=== PATIENT | female | born 1955 | race Caucasian/White ===

== ENCOUNTER 2022-01-12 09:58 | Inpatient (IN) | payer MEDICARE, SELFPAY ==
--- NOTE | ~2022-01-12 | CT_ITS ---
EXAMINATION: CT CHEST WITHOUT CONTRAST CLINICAL INFORMATION: History of OMAR. Hemoptysis. COMPARISON: None TECHNIQUE: Multidetector volumetric CT imaging of the chest was done. Axial MIP volume rendering provided. Sagittal and coronal reformatted images were obtained. This CT examination was performed using dose optimization techniques as appropriate, variously including the following: *Automated exposure control *Adjustment of mA and/or kV according to patient size (this includes techniques or standardized protocols for targeted exams where dose is matched to indication/reason for exam; i.e. extremities or head) *Use of iterative reconstruction technique DLP: 254 mGy-cm FINDINGS: LUNGS: Left apical surgical chain sutures. Biapical fibrotic changes with mild associated traction bronchiectasis. 0.7 cm right upper lobe 0.6 cm right lower lobe nodular densities (images 155 and 301, series 5). Mild emphysema. MEDIASTINUM: Heart normal in size. No significant pericardial effusion. No evidence of adenopathy by size criteria. CORONARY ARTERY CALCIFICATION: Severe. PLEURA: There is no pleural effusion. No pleural mass or thickening. AXILLA: No lymphadenopathy by size criteria. UPPER ABDOMEN: Atherosclerotic abdominal aorta. OSSEOUS STRUCTURES: Unremarkable. CT/CT chest wo IV con IMPRESSION: No acute finding. Left apical surgical chain sutures. Biapical fibrotic changes with mild associated traction bronchiectasis. 0.7 cm right upper lobe 0.6 cm right lower lobe nodular densities, nonspecific. Follow-up chest CT in 6 months is indicated for further evaluation, as per Fleischner Society guidelines. Mild emphysema. Severe coronary arterial calcification.
--- NOTE | ~2022-01-12 | XR_ITS ---
EXAMINATION: XR CHEST CLINICAL INFORMATION: Shortness of breath and cough COMPARISON: None TECHNIQUE: 2 views of the chest were obtained. FINDINGS: No significant abnormality is noted involving the heart, lungs, mediastinum, bony thorax or soft tissues. XR/XR chest 2V IMPRESSION: Unremarkable examination.
[2022-01-12 10:15] VITALS: BP 114/70; BP 118/71; PULSE 114; PULSE 123; RESP 26; TEMP 36.6; O2SAT 100; O2SAT 86; BMI 24.1
--- NOTE | 2022-01-12 10:15 | ECG_ITS ---
Test Reason : SOB Blood Pressure : / mmHG Vent. Rate : 107 BPM Atrial Rate : 107 BPM P-R Int : 114 ms QRS Dur : 076 ms QT Int : 330 ms P-R-T Axes : 079 054 062 degrees QTc Int : 440 ms Sinus tachycardia with Premature atrial complexes with Aberrant conduction Low voltage QRS Possible Inferior infarct , age undetermined Abnormal ECG When compared with ECG of 18-APR-2010 10:24, Aberrant conduction is now Present Referred By: Brenda Gonzalez Electronically Signed By:PETER CARTER MD
[2022-01-12 10:55] LABS: MANUAL DIFF FLAG NO
[2022-01-12 10:59] LABS: Basophils Percent Auto 0.4 % (0-2); Eosinophils Percent Auto 0.3 % (0-4); Hematocrit 43.9 % (37.0-47.0); Hemoglobin 14.4 g/dl (12.0-16.0); Imm Gran Abs Auto 0.03 X10*3/uL (0.00-0.03); Imm Gran Pct Auto 0.4 % (0.0-0.4); Lymphocytes Absolute Auto 0.7 X10*3/uL (1.2-4.9); Lymphocytes Percent Auto 8.5 % (20-40); Mean Corpuscular HGB Conc 32.8 g/dl (31.0-35.0); Mean Corpuscular Hemoglobin 30.6 pg (27.0-33.0); Mean Corpuscular Volume 93.4 fL (80.0-98.0); Mean Platelet Volume 10.8 fL (9.4-12.3); Monocytes Absolute Auto 0.7 X10*3/uL (0.1-1.2); Monocytes Percent Auto 9.1 % (2-11); Neutrophils Absolute Auto 6.5 x10*3/uL (2.0-8.3); Neutrophils Percent Auto 81.3 % (45-73); Platelet Count 272 X10*3/uL (160-400)
[2022-01-12] MEDS: cefTRIAXone sodium 2 GM in 0.9 % Sodium Chloride 50 ML IV (11:00)
[2022-01-12] MEDS: methylPREDNISolone Sod Succ 125 MG/2 ML VIAL IVPUSH (11:00)
[2022-01-12 11:07] LABS: Prothrombin Time 10.9 SEC (10.0-13.1)
[2022-01-12 11:09] LABS: Lactic Acid 1.6 mmol/L (0.5-2.0)
[2022-01-12 11:16] LABS: Alanine Aminotransferase 7 U/L (0-31); Albumin Level 4.4 g/dL (3.5-5.0); Alkaline Phosphatase 50 U/L (39-117); Anion Gap 15 (12-20); Aspartate Amino Transferase 19 U/L (5-31); Bilirubin Total 0.4 mg/dL (0.0-1.0); Blood Urea Nitrogen 13 mg/dL (9-16); Calcium 9.5 mg/dL (8.4-10.2); Carbon Dioxide 26 mmol/L (22-29); Chloride 100 mmol/L (96-108); Creatinine Clr Calc Pharmacy 51.3; Estimated Glomerular Filt Rate > 60; Glucose Random 131 mg/dL (60-115); Potassium 4.4 mmol/L (3.3-5.1); Sodium 137 mmol/L (135-145)
[2022-01-12 11:20] LABS: B Type Natriuretic Peptide 12 pg/mL (<100); Troponin-I High Sensitivity 6.6 ng/L (<3.5-17.0)
[2022-01-12] MEDS: Magnesium Sulfate/H2O 2 GM/50 ML PIGGYBACK IV (11:47)
[2022-01-12] MEDS: guaiFEN/Codeine SF 200/20/10ML 10 ML LIQUID PO (11:47)
[2022-01-12] MEDS: Ketorolac Tromethamine 30 MG/ML VIAL IVPUSH (11:47)
[2022-01-12 11:50] LABS: Influenza A PCR POSITIVE (Negative); Influenza B PCR NEGATIVE (Negative); Resp Syncy Virus RNA Qual PCR NEGATIVE (Negative); SARS COV2 PCR INHOUSE NEGATIVE (Negative)
[2022-01-12 11:57] VITALS: BP 110/61; PULSE 93; RESP 20; TEMP 36.9; O2SAT 98
--- NOTE | 2022-01-12 12:13 | ED_ITS ---
HPI - SOB/Dyspnea General Chief Complaint: Dyspnea Stated Complaint: Short of Breath Time Seen by Provider: 01/12/22 10:07 Source: patient and EMS Mode of arrival: EMS Limitations: no limitations History of Present Illness HPI Narrative: 66yoF c PMHx of COPD is presenting to the ED via EMS with complaints of 4 days of generalized fatigue/malaise, shortness of breath with a productive cough with yellow/green color sputum with streaks of blood, dyspnea on exertion along with chest tightness/pain worse today. She reports that she is a daily smoker although has been unable to smoke over the past few days. She reports she believes she was intubated approximately 4 years for her COPD. Although denies any recent hospitalizations. She called EMS today and when they arrived they noted she was 86% on room air therefore they placed her on a non-rebreather and she was given a DuoNeb in route and was 100% during DuoNeb. She denies any measured fevers, dizziness, headaches, neck pain/stiffness, trouble swallowing, orthopnea, palpitations, paresthesias, nausea/vomiting/diarrhea constipation, black or bloody stools, abdominal pain, flank pain, dysuria, hematuria, abnormal vaginal discharge, lower extremity more calf tenderness, recent travel or sick contacts that she is aware of or any other symptoms complaints or concerns at this time. MD elicited complaint: shortness of breath, cough, pain with inspiration and chest pain Pertinent past history: COPD Onset (ago): day(s) (4) Timing: constant Severity: severe Exacerbating factors: exertion, movement, coughing, inspiration, talking, smoke and deep breaths Relieving factors: nothing Known history of: COPD Associated symptoms: chest pain, pain with inspiration, cough, wheezing, sputum production and chest congestion Treatment prior to arrival: other (See above) Related Data Home oxygen amount: none Allergies Allergy/AdvReac Type Severity Reaction Status Date / Time tree nut [TREE NUT] Allergy Intermediate MOUTH Unverified 10/26/19 14:51 TINGLING atorvastatin [Lipitor] Allergy Unknown Verified 09/18/19 00:00 ENVIRONMENTAL Allergy Intermediate NASAL Uncoded 10/26/19 14:51 CONGESTION Review of Systems Review of Systems: Constitutional : + chills/fatigue/malaise, No Weight loss, No Fever, No Night Sweats ENT/Mouth : No Hearing loss, No Ear Pain, No Nasal Congestion, No Sinus Pain, No Hoarseness, No sore throat, No Rhinorrhea, No Swallowing Difficulty Eyes: No Eye Pain, No Swelling, No Redness, No Foreign Body, No Discharge, No Vision Changes Cardiovascular : No Chest Pain, + SOB, + Dyspnea on Exertion, No Orthopnea, No Edema, No Palpitations Respiratory : + Cough, + Sputum, + Wheezing, No Smoke Exposure, + Dyspnea Gastrointestinal : No Nausea, No Vomiting, No Diarrhea, No Constipation, No abdominal Pain, No Hematochezia, No Melena Genitourinary : no irregular bleeding, No Dysuria, No Urinary Frequency, No Hematuria, No Urinary Incontinence, No Urgency, No Flank Pain, No Urinary Flow Changes, No Hesitancy Musculoskeletal : No joint pain, + Myalgias, No Joint Swelling Skin : No Skin Lesions, No rash Neuro : No Weakness, No Numbness, No Paresthesias, No Loss of Consciousness, No Dizziness, No Headache Psych : No Anxiety/Panic, No Depression, No SI/HI/AH/VH, No Social Issues, Heme/Lymph: No Bruising, No Bleeding,No Lymphadenopathy Endocrine : No Polyuria, No Polydipsia, No Temperature Intolerance Yes all other systems are reviewed and are negative [facility] Past Medical History Attestation statement: The following information was validated with the patient. Source: old records reviewed, obtained from family and nursing notes reviewed Social History Social History Advance Directives: No Advance Directives Information Provided: No Physical Exam Vital Signs: Vital Signs: Last Vital Signs Temp 98.4 F 01/12/22 11:57 Pulse 93 01/12/22 11:57 Resp 20 01/12/22 11:57 BP 110/61 01/12/22 11:57 Pulse Ox 98 01/12/22 11:57 O2 Del Method 01/12/22 11:57 O2 Flow Rate 4 01/12/22 11:57 BMI result Body Mass Index 24.1 vital signs have been reviewed as normal and appeared to be correct. Blood pressure normal. Heart rate 123. Respiration rate 26 Temperature normal. Oxygen saturation normal. Appearance: Alert. Oriented X3. Acute respiratory distress. Head: Normal external exam. Normocephalic. Atraumatic. Eyes: PERRLA. EOMI. Conjunctiva and sclera normal. Eyelids normal. ENT: EAC normal. TM's Normal. No septal hematoma noted. No hemotympanum noted. Pharynx normal. Uvula midline. Moist mucous membranes. No lesions/ulcerations or masses noted on the tongue. Normal voice. No trismus noted. No drooling noted. No muffled voice noted. Neck: Normal inspection. Neck supple. FROM. No adenopathy. Thyroid Normal. No tracheal deviation noted. No crepitus is noted. No meningeal signs. No neck mass noted. No signs of trauma noted. CVS: Normal heart rate and rhythm. Heart sound normal. Pulses normal throughout. No murmurs/rales/gallops. Respiratory: In acute respiratory distress with decreased breath sounds and inspiratory and expiratory wheezing throughout. No rales/rhonchi noted. Chest is nontender. No crepitus is noted. Patient is noted to have accessory muscle usage and tracheal tugging and abdominal retractions. No signs of trauma noted. Abdomen: Soft and nontender. Nondistended. No guarding. No rigidity. Bowel sounds normal in all 4 quadrants. No distention noted. No organomegaly noted. No visible injury noted. No rebound tenderness. Negative Rovsing sign. Negative obturator's sign. Negative psoas sign. Negative Nicholas sign. Back: No CVA tenderness. Full range of motion noted. Nontender. No signs of trauma. Patient neuro intact bilaterally and distally on all 4 extremities. Patient's reflexes intact bilaterally and distally on all 4 extremities. No rashes/lesion/induration/fluctuance or signs of infection noted. Skin: Skin warm and dry. Normal skin color. Normal skin turgor. No rashes/lesions/lacerations noted. Extremities: No lower extremity edema. No calf tenderness is noted. Extremities exhibit normal range of motion and nontender. Neuro: Oriented X 3. No motor deficit. No sensory deficit. Reflexes normal. Normal steady gait. No focal neuro deficits noted. CN's II-XII intact bilaterally? Vascular: + radial pulses/+ 2 distal pedal pulses/+2 dorsalis pedis b/l. Normal cap refill. No cyanosis noted to upper extremity nails and lower extremity toes nails. Course Course Course Narrative: 10:15am - 66yoF c PMHx of COPD is presenting to the ED via EMS with complaints of 4 days of generalized fatigue/malaise, shortness of breath with a productive cough wit h yellow/green color sputum with streaks of blood, dyspnea on exertion along with chest tightness/pain worse today. She reports that she is a daily smoker although has been unable to smoke over the past few days. She reports she believes she was intubated approximately 4 years for her COPD. Although denies any recent hospitalizations. She called EMS today and when they arrived they noted she was 86% on room air therefore they placed her on a non-rebreather and she was given a DuoNeb in route and was 100% during DuoNeb. Plan: Will obtain labs, EKG, chest x-ray, blood cultures, lactic acid, COVID/RSV/flu swab. Provide 30 mg of IV Toradol, 125 mg of IV Solu-Medrol, 2 g of magnesium, 10 mL of Robitussin with codeine and 2 g of Rocephin and re- evaluate. Reevaluation(s) Reevaluation #1: Labs obtained reviewed - patient's random glucose is 131. - troponin 6.6. - patient positive for influenza A Otherwise all other labs are within normal limits and patient negative for influenza B/RSV and COVID. Plan: Will repeat the patient's troponin. Patient is requiring nasal cannula oxygen despite having the breathing treatment, Solu-Medrol and magnesium therefore will plan to admit at this time. Time: 12:20 Medications Administered Discontinued Medications Generic Name Dose Route Start Last Admin Trade Name Freq PRN Reason Stop Dose Admin Guaifenesin/Codeine Phosphate 10 ml 01/12/22 11:41 01/12/22 11:47 Guaifen/Codeine Sf 200/20/10ml 10 Ml Liquid PO 01/12/22 11:42 10 ml ONCE ONE Administration Magnesium Sulfate 2 gm in 50 mls @ 25 mls/hr 01/12/22 10:15 01/12/22 11:47 Magnesium Sulfate/H2o IV 01/12/22 12:14 25 mls/hr ONCE ONE Administration Ceftriaxone Sodium 2 gm/ 50 mls @ 100 mls/hr 01/12/22 10:15 01/12/22 11:47 Sodium Chloride IV 01/12/22 10:44 Infused ONCE ONE Infusion Ketorolac Tromethamine 30 mg 01/12/22 11:40 01/12/22 11:47 Ketorolac Tromethamine 30 Mg/Ml Vial IVPUSH 01/12/22 11:41 30 mg ONCE ONE Administration Methylprednisolone Sodium Succinate 125 mg 01/12/22 10:15 01/12/22 11:00 Methylprednisolone Sod Succ 125 Mg/2 Ml Vial IVPUSH 01/12/22 10:16 125 mg ONCE ONE Administration Medical Decision Making Medical Decision Making Independent interpretation of EKG, rhythm strip, radiology study: Independent interp EKG,rhythm strip, radiology study I performed an independent interpretation of the: EKG My interpretation is EKG sinus tachycardia with occasional PVCs nonspecific ST abnormalities no acute ischemic change are noted. Similar compared to prior EKG 04/18/2010 Discussion of test interpretation with radiology: Discussion of test interpretation with radiology Discussed with radiology regarding test interpretation. Chest x-ray obtained and reviewed and negative for any acute processes. CXR FINDINGS: No significant abnormality is noted involving the heart, lungs, mediastinum, bony thorax or soft tissues. XR/XR chest 2V IMPRESSION: Unremarkable examination. Critical Care Time Critical Care Time Critical Care Time: Yes Total Critical Care Time: 60 Attestation: I personally attest to this time spent taking care of the patient Discharge Plan Discharge Clinical Impression: Acute exacerbation of chronic obstructive airways disease, Hypoxia, Influenza A Patient Disposition: Admitted As Inpatient
--- NOTE | 2022-01-12 12:24 | PC.NURSE ---
Pt alert and oriented, reports improvement with breathing. Lena hubbard provided, repeat lab work ordered for 1300. Daughter at bedside.
--- NOTE | 2022-01-12 13:34 | P.HPHOSP_ITS ---
History of Present Illness Date of Service: 01/12/22 Chief Complaint: shortness of breath, cough, muscle aches and pains This is a 66 yo F with a PMH of Lung Ca -- s/p resection (did not need chemo/radiation), non-TB mycobactrium lung infection (was to start treatment since August of this year, but has yet to being antibiotics), COPD and active tobacco use, HLD who presents to the ED with a 4 day history of generalized malaise, muscle aches, fatigue, poor oral intake, productive cough (intermittently blood tinged) and progresssive shortness of breath with associated fevers and chills. No sick contacts reported. She states that her shortness of breath continued to worsen and hence, she presented to the ED. Per ED notes -- when paramedics arrived, the patient's pulse ox was 86% on RA. She was placed on 100% NRM and given a DuoNeb in route. In the Ed, the patients work up showed a cxr without any infiltrates. She is flu A positve. She was treated with tamiflu, solu-medrol, IV toradol, 2gm of IV mag and 2g of rocephin. She had some improvement in symptoms but when attempted to wean her oxygen, she desaturated below 88% and hence, placed back on 4L NC. She will now be admitted for further treatment. Review of Systems Review of Systems: negative except HPI [facility] Medical History (Updated 01/12/22 @ 13:39 by Dayne Kowalski MD) COPD (chronic obstructive pulmonary disease) Hyperlipidemia associated with type 2 diabetes mellitus Lung cancer Non-tuberculous mycobacterial pneumonia Pertinent family history: DM in multiple family members Surgical History (Updated 01/12/22 @ 13:40 by Dayne Kowalski MD) History of pneumonectomy Social History (Updated 01/12/22 @ 13:40 by Dayne Kowalski MD) Alcohol intake: current Alcohol intake frequency: a few times a week Patient Tobacco Use Status: Current everyday Tobacco user Use of substances other than those prescribed or required for medical reasons: No Advance Directives: No Advance Directives Information Provided: No Meds Allergies Allergy/AdvReac Type Severity Reaction Status Date / Time tree nut [TREE NUT] Allergy Intermediate MOUTH Unverified 10/26/19 14:51 TINGLING atorvastatin [Lipitor] Allergy Unknown Verified 09/18/19 00:00 ENVIRONMENTAL Allergy Intermediate NASAL Uncoded 10/26/19 14:51 CONGESTION Active Medications: Current Medications Acetaminophen (Acetaminophen 325 Mg Tablet) 650 mg PO Q6H PRN PRN Reason: Pain, Mild (Pain Scale 1-3) Enoxaparin Sodium (Enoxaparin Sodium 40 Mg/0.4 Ml Syringe) 40 mg SUBCUT Q24H [facility] Methylprednisolone Sodium Succinate (Methylprednisolone Sod Succ 40 Mg/Ml Vial) 40 mg IVPUSH Q12H JEFFREY Ondansetron HCl (Ondansetron Hcl 4 Mg/2 Ml Vial) 4 mg IVPUSH Q8H PRN PRN Reason: Nausea and Vomiting Oseltamivir Phosphate (Oseltamivir Phosphate 30 Mg Capsule) 30 mg PO BID JEFFREY Stop: 01/17/22 09:01 Sodium Chloride (0.9 % Sodium Chloride Flush 3 Ml Syringe) 3 ml IVFLUSH QSHIFT [facility] Home Medications Medication Instructions Recorded Confirmed Last Taken Type albuterol sulfate 90 mcg/actuation 2 puff inhalation QID PRN Wheezing 01/12/22 01/12/22 Unknown History aerosol inhaler cyanocobalamin (vitamin B-12) 1,000 mcg PO DAILY 01/12/22 01/12/22 Unknown History 1,000 mcg tablet fluticasone furoate 200 1 puff inhalation DAILY 01/12/22 01/12/22 Unknown History mcg-vilanterol 25 mcg/dose inhalation powder (Breo Ellipta) rosuvastatin 5 mg tablet 1 tab PO MOTH 01/12/22 01/12/22 Unknown History tiotropium bromide 18 mcg capsule 1 cap inhalation DAILY 01/12/22 01/12/22 Unknown History with inhalation device (Spiriva with HandiHaler) Physical Exam Vital Signs and Narrative: Vital Signs: Last Vital Signs Temp 98.4 F 01/12/22 11:57 Pulse 93 01/12/22 11:57 Resp 20 01/12/22 11:57 BP 110/61 01/12/22 11:57 Pulse Ox 98 01/12/22 11:57 O2 Del Method 01/12/22 11:57 O2 Flow Rate 4 01/12/22 11:57 BMI result Body Mass Index 24.1 Const: Other: Constitutional - Awake and Alert, No apparent distress Eyes - PERRLA, EOMI Cardiovascular - S1S2, RRR, No edema Respiratory - comfortable on 4L NC; diminished air entry with poor breath sounda globally Gastrointestinal - NT / ND; +BS; No rebound or guarding - No CVA tenderness Extremities - no calf tenderness bilaterally, no swelling Musculoskeletal - Normal inspection, normal ROM Skin - Warm/Dry Neurological - Alert & oriented x3, No focal deficit Psychological - Appropriate affect Results Labs CBC and Chem 7: 01/12/22 10:45 01/12/22 10:45 Labs: Laboratory Results - last 24 hr 01/12/22 01/12/22 01/12/22 10:45 10:45 10:45 MCV 93.4 MCH 30.6 MCHC 32.8 RDW 15.0 Plt Count 272 MPV 10.8 Immature Gran % (Auto) 0.4 Neut % (Auto) 81.3 H Lymph % (Auto) 8.5 L [place] % (Auto) 9.1 Eos % (Auto) 0.3 Baso % (Auto) 0.4 Lymph # (Auto) 0.7 L [place] # (Auto) 0.7 Eos # (Auto) 0.0 Baso # (Auto) 0.0 Abs Immat Gran (auto) 0.03 Absolute Neuts (auto) 6.5 Absolute Nucleated RBC 0.000 Nucleated RBC % (auto) 0.0 PT 10.9 INR 1.0 Anion Gap 15 Estim Creat Clear Calc 51.3 Estimated GFR > 60 Random Glucose 131 H Lactic Acid Calcium 9.5 Magnesium 2.0 Total Bilirubin 0.4 AST 19 ALT 7 Alkaline Phosphatase 50 Troponin I High Sens B-Natriuretic Peptide Total Protein 7.0 Albumin 4.4 Influenza Type A (PCR) Influenza Type B (PCR) RSV RNA Qual (PCR) SARS-CoV-2 RNA (RT-PCR) 01/12/22 01/12/22 01/12/22 10:45 10:45 10:45 MCV MCH MCHC RDW Plt Count MPV Immature Gran % (Auto) Neut % (Auto) Lymph % (Auto) [place] % (Auto) Eos % (Auto) Baso % (Auto) Lymph # (Auto) [place] # (Auto) Eos # (Auto) Baso # (Auto) Abs Immat Gran (auto) Absolute Neuts (auto) Absolute Nucleated RBC Nucleated RBC % (auto) PT INR Anion Gap Estim Creat Clear Calc Estimated GFR Random Glucose Lactic Acid 1.6 Calcium Magnesium Total Bilirubin AST ALT Alkaline Phosphatase Troponin I High Sens 6.6 B-Natriuretic Peptide 12 Total Protein Albumin Influenza Type A (PCR) Influenza Type B (PCR) RSV RNA Qual (PCR) SARS-CoV-2 RNA (RT-PCR) 01/12/22 10:45 MCV MCH MCHC RDW Plt Count MPV Immature Gran % (Auto) Neut % (Auto) Lymph % (Auto) [place] % (Auto) Eos % (Auto) Baso % (Auto) Lymph # (Auto) [place] # (Auto) Eos # (Auto) Baso # (Auto) Abs Immat Gran (auto) Absolute Neuts (auto) Absolute Nucleated RBC Nucleated RBC % (auto) PT INR Anion Gap Estim Creat Clear Calc Estimated GFR Random Glucose Lactic Acid Calcium Magnesium Total Bilirubin AST ALT Alkaline Phosphatase Troponin I High Sens B-Natriuretic Peptide Total Protein Albumin Influenza Type A (PCR) POSITIVE A Influenza Type B (PCR) NEGATIVE RSV RNA Qual (PCR) NEGATIVE SARS-CoV-2 RNA (RT-PCR) NEGATIVE Imaging Radiologist's Impressions: Impressions Chest X-Ray 01/12/22 10:25 IMPRESSION: Unremarkable examination. Assessment and Plan (1) Acute exacerbation of chronic obstructive airways disease: Status: Acute (2) Hypoxia: Status: Acute Plan 66 yo F with a PMH of Lung Ca s/p resection, non-TB mycobactrium lung infection (she has yet to start treatment for this -- follows with ID/Pulm on [place]), COPD, HLD, active smoking who presents to the ED with respiratory symptoms. She is diagnosed with influenza A infection leading to COPD exacerbation and respiratory failure with hypoxia. She remains hypoxic despite treatment in the ED and hence will be admitted for further treatment. 1. Acute Respiratory Failure with hypoxia due to COPD exacerbation due to Influenza A infection Continue supplemental o2 -- goal 92 Continue solu-medrol and scheduled + PRN bronchodilators due to history of lung Ca + suspected OMAR infection + reported hemoptysis, will check CT chest without contrast Given tamiflu 75mg -- will start 30mg BID starting tomorrow AM (renally dosed -- CrCl less than 60). 2. HLD on rasouvastatin at home -- cannot tolerate lipitor hold statin while hospitalized 3. 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 Tobacco use NRT if patient requested cessation has been encouraged Full Code DVT pptx, Lovenox Due to the patients respiratory failure requiring supplemental oxygen and COPD exacerbation -- she will require an inpatient hospitaization which is likely to span at least 2 midnights for further treatment and monitoring of response. Quality Stroke Does the patient have a stroke diagnosis?: No VTE Prior VTE?: No VTE Risk Level:: Medical - moderate - high VTE Device Contraindication: N/A - Device Ordered VTE Drug Contraindication: N/A - Med Ordered
[2022-01-12 13:40] LABS: Troponin-I High Sensitivity 7.2 ng/L (<3.5-17.0)
--- NOTE | 2022-01-12 13:51 | PHA.MEDREC ---
Pharmacy Consult ? Medication Reconciliation Pharmacy has completed the medication reconciliation. Patient mentioned she also takes activated charcoal and milk thistle but she says its only as needed and very rarely.
[2022-01-12] MEDS: Enoxaparin Sodium 40 MG/0.4 ML SYRINGE SUBCUT (13:55)
[2022-01-12] MEDS: Albuterol/Iprat 2.5/0.5MG 3 ML AMPUL.NEB INHALE (14:30)
[2022-01-12 14:33] VITALS: PULSE 84; O2SAT 97
--- NOTE | 2022-01-12 15:32 | PC.NURSE ---
[place] [facility]
[2022-01-12 16:00] VITALS: BP 121/65; PULSE 85; RESP 18; TEMP 36.8; O2SAT 96
[2022-01-12] MEDS: 0.9 % Sodium Chloride Flush 3 ML SYRINGE IVFLUSH ×2 (17:29→19:47)
[2022-01-12] MEDS: methylPREDNISolone Sod Succ 40 MG/ML VIAL IVPUSH (19:18)
[2022-01-12] MEDS: Oseltamivir Phosphate 75 MG CAPSULE PO (19:18)
[2022-01-12 21:13] LABS: Appearance Urine Clear; Color Urine Yellow; Glucose Urine UA Negative (Negative); Leukocyte Esterase Urine Negative (Negative); Nitrite Urine Negative (Negative); Urine Blood Negative (Negative); Urine Ketones Negative (Negative); Urine Protein Negative (Neg-Trace)
[2022-01-13] VITALS (8 sets, daily range): BP systolic 116–142; BP diastolic 57–75; PULSE 79–110; RESP 14–22; TEMP 36.5–37.1; O2SAT 96–99
[2022-01-13] MEDS: Benzonatate 100 MG CAPSULE 200 MG PO (00:12)
[2022-01-13] MEDS: methylPREDNISolone Sod Succ 40 MG/ML VIAL IVPUSH ×2 (06:20→19:01)
[2022-01-13 06:54] LABS: Hematocrit 40.5 % (37.0-47.0); Hemoglobin 13.7 g/dl (12.0-16.0); Mean Corpuscular HGB Conc 33.8 g/dl (31.0-35.0); Mean Corpuscular Hemoglobin 31.1 pg (27.0-33.0); Mean Platelet Volume 11.3 fL (9.4-12.3); Platelet Count 305 X10*3/uL (160-400); Red Cell Distribution Width 14.7 % (11.0-16.0); White Blood Count 11.4 X10*3/uL (4.8-10.8)
[2022-01-13 07:18] LABS: Anion Gap 15 (12-20); Blood Urea Nitrogen 17 mg/dL (9-16); Calcium 9.4 mg/dL (8.4-10.2); Carbon Dioxide 25 mmol/L (22-29); Chloride 101 mmol/L (96-108); Creatinine Clr Calc Pharmacy 59.9; Estimated Glomerular Filt Rate > 60; Glucose Random 145 mg/dL (60-115); Potassium 4.9 mmol/L (3.3-5.1); Sodium 136 mmol/L (135-145)
[2022-01-13] MEDS: Cyanocobalamin (Vitamin B-12) 1,000 MCG TABLET 1000 MCG PO (08:29)
[2022-01-13] MEDS: Oseltamivir Phosphate 30 MG CAPSULE PO ×2 (08:29→22:41)
[2022-01-13] MEDS: 0.9 % Sodium Chloride Flush 3 ML SYRINGE IVFLUSH ×3 (08:30→23:27)
--- NOTE | 2022-01-13 08:30 | P.PNIM_ITS ---
Subjective Subjective Date of Service: 01/13/22 Interval History: Pt seen for f/u for acute respiratory failure with hypoxia due to influenza A infection. Interval history: Pt seen in room, resting comfortably in bed. States she is feeling much better than when she first arrived, but still has some SOB with walking to the bathroom. Denies SOB at rest. Pt waiting on inhalers, which were not in the formulary and should arrive today. Pt cannot tolerate nebulized inhalers -- they make her throat burn -- and she did not bring her home meds with her. Has been having a non-productive cough, which is better than yesterday. Pt also complains of frontal sinus pressure, which she has a long history of. Review of Systems SOB with exertion No SOB at rest Intermittent non-productive cough No chest pain/pressure Denies abdominal pain Review of Systems: Yes all other systems are reviewed and are negative Physical Exam Vital Signs: Vital Signs: Last Vital Signs Temp 97.8 F 01/13/22 07:58 Pulse 86 01/13/22 07:58 Resp 14 01/13/22 07:58 BP 117/62 01/13/22 07:58 Pulse Ox 96 01/13/22 07:58 O2 Del Method 01/13/22 07:58 O2 Flow Rate 3 01/13/22 07:58 BMI result Body Mass Index 24.1 General: AOx3, no acute distress Resp: Diffuse right-lung expiratory wheezing CVS: S1, S2, RRR GI: +BS, NT, no distention Skin: No rash Neuro: Motor grossly intact Psych: Appropriate affect Objective Data Active Medications Acetaminophen (Acetaminophen 325 Mg Tablet) 650 mg PO Q6H PRN PRN Reason: Pain, Mild (Pain Scale 1-3) Albuterol/Ipratropium (Albuterol/Iprat 2.5/0.5mg 3 Ml Ampul.Neb) 3 ml INHALE RQ4H WHILE AWAKE PRN PRN Reason: wheezing/shortness of breath Benzonatate (Benzonatate 100 Mg Capsule) 200 mg PO TID PRN PRN Reason: cough Last Admin: 01/13/22 00:12 Dose: 200 mg Documented By: PRISCILLA Cyanocobalamin (Cyanocobalamin (Vitamin B-12) 1,000 Mcg Tablet) 1,000 mcg PO DAILY JEFFREY Enoxaparin Sodium (Enoxaparin Sodium 40 Mg/0.4 Ml Syringe) 40 mg SUBCUT Q24H [facility] Last Admin: 01/12/22 13:55 Dose: 40 mg Documented By: DICK Fluticasone/Vilanterol (Fluticasone/Vilanterol 200/25 Blst.W.Dev) 1 puff INHALE RDAILY [facility] Methylprednisolone Sodium Succinate (Methylprednisolone Sod Succ 40 Mg/Ml Vial) 40 mg IVPUSH Q12H [facility] Last Admin: 01/13/22 06:20 Dose: 40 mg Documented By: PRISCILLA Ondansetron HCl (Ondansetron Hcl 4 Mg/2 Ml Vial) 4 mg IVPUSH Q8H PRN PRN Reason: Nausea and Vomiting Oseltamivir Phosphate (Oseltamivir Phosphate 30 Mg Capsule) 30 mg PO BID [facility] Stop: 01/17/22 09:01 Pharmacy Consult (Consult Rx Perform Med Rec) 1 each MISCELLANE ONCE PRN PRN Reason: Consult order Sodium Chloride (0.9 % Sodium Chloride Flush 3 Ml Syringe) 3 ml IVFLUSH QSHIFT [facility] Last Admin: 01/12/22 19:47 Dose: 3 ml Documented By: PRISCILLA Tiotropium [place] (Tiotropium [place] 18 Mcg Cap.W.Dev) 1 puff INHALE RDAILY [facility] Last Admin: 01/13/22 07:29 Dose: 1 puff Documented By: LC Labs CBC & Chem 7: 01/13/22 06:01 01/13/22 06:01 Labs: Laboratory Results - last 24 hr 01/12/22 01/12/22 01/12/22 10:45 10:45 10:45 MCV 93.4 MCH 30.6 MCHC 32.8 RDW 15.0 Plt Count 272 MPV 10.8 Immature Gran % (Auto) 0.4 Neut % (Auto) 81.3 H Lymph % (Auto) 8.5 L Hood % (Auto) 9.1 Eos % (Auto) 0.3 Baso % (Auto) 0.4 Lymph # (Auto) 0.7 L [place] # (Auto) 0.7 Eos # (Auto) 0.0 Baso # (Auto) 0.0 Abs Immat Gran (auto) 0.03 Absolute Neuts (auto) 6.5 Absolute Nucleated RBC 0.000 Nucleated RBC % (auto) 0.0 PT 10.9 INR 1.0 Anion Gap 15 Estim Creat Clear Calc 51.3 Estimated GFR > 60 Random Glucose 131 H Lactic Acid Calcium 9.5 Magnesium 2.0 Total Bilirubin 0.4 AST 19 ALT 7 Alkaline Phosphatase 50 Troponin I High Sens B-Natriuretic Peptide Total Protein 7.0 Albumin 4.4 Urine Color Urine Appearance Urine pH Ur Specific [place] Urine Protein Urine Glucose (UA) Urine Ketones Urine Blood Urine Nitrite Ur Leukocyte Esterase Influenza Type A (PCR) Influenza Type B (PCR) RSV RNA Qual (PCR) SARS-CoV-2 RNA (RT-PCR) 01/12/22 01/12/22 01/12/22 10:45 10:45 10:45 MCV MCH MCHC RDW Plt Count MPV Immature Gran % (Auto) Neut % (Auto) Lymph % (Auto) Hood % (Auto) Eos % (Auto) Baso % (Auto) Lymph # (Auto) Hood # (Auto) Eos # (Auto) Baso # (Auto) Abs Immat Gran (auto) Absolute Neuts (auto) Absolute Nucleated RBC Nucleated RBC % (auto) PT INR Anion Gap Estim Creat Clear Calc Estimated GFR Random Glucose Lactic Acid 1.6 Calcium Magnesium Total Bilirubin AST ALT Alkaline Phosphatase Troponin I High Sens 6.6 B-Natriuretic Peptide 12 Total Protein Albumin Urine Color Urine Appearance Urine pH Ur Specific [place] Urine Protein Urine Glucose (UA) Urine Ketones Urine Blood Urine Nitrite Ur Leukocyte Esterase Influenza Type A (PCR) Influenza Type B (PCR) RSV RNA Qual (PCR) SARS-CoV-2 RNA (RT-PCR) 01/12/22 01/12/22 01/12/22 10:45 13:02 21:02 MCV MCH MCHC RDW Plt Count MPV Immature Gran % (Auto) Neut % (Auto) Lymph % (Auto) Hood % (Auto) Eos % (Auto) Baso % (Auto) Lymph # (Auto) Hood # (Auto) Eos # (Auto) Baso # (Auto) Abs Immat Gran (auto) Absolute Neuts (auto) Absolute Nucleated RBC Nucleated RBC % (auto) PT INR Anion Gap Estim Creat Clear Calc Estimated GFR Random Glucose Lactic Acid Calcium Magnesium Total Bilirubin AST ALT Alkaline Phosphatase Troponin I High Sens 7.2 B-Natriuretic Peptide Total Protein Albumin Urine Color Yellow Urine Appearance Clear Urine pH 6.0 Ur Specific [place] 1.020 Urine Protein Negative Urine Glucose (UA) Negative Urine Ketones Negative Urine Blood Negative Urine Nitrite Negative Ur Leukocyte Esterase Negative Influenza Type A (PCR) POSITIVE A Influenza Type B (PCR) NEGATIVE RSV RNA Qual (PCR) NEGATIVE SARS-CoV-2 RNA (RT-PCR) NEGATIVE 01/13/22 01/13/22 06:01 06:01 MCV 92.0 MCH 31.1 MCHC 33.8 RDW 14.7 Plt Count 305 MPV 11.3 Immature Gran % (Auto) Neut % (Auto) Lymph % (Auto) Hood % (Auto) Eos % (Auto) Baso % (Auto) Lymph # (Auto) Hood # (Auto) Eos # (Auto) Baso # (Auto) Abs Immat Gran (auto) Absolute Neuts (auto) Absolute Nucleated RBC 0.000 Nucleated RBC % (auto) 0.0 PT INR Anion Gap 15 Estim Creat Clear Calc 59.9 Estimated GFR > 60 Random Glucose 145 H Lactic Acid Calcium 9.4 Magnesium Total Bilirubin AST ALT Alkaline Phosphatase Troponin I High Sens B-Natriuretic Peptide Total Protein Albumin Urine Color Urine Appearance Urine pH Ur Specific [place] Urine Protein Urine Glucose (UA) Urine Ketones Urine Blood Urine Nitrite Ur Leukocyte Esterase Influenza Type A (PCR) Influenza Type B (PCR) RSV RNA Qual (PCR) SARS-CoV-2 RNA (RT-PCR) Assessment and Plan (1) Acute exacerbation of chronic obstructive airways disease: Status: Acute (2) Influenza A: Status: Acute Plan 66 yo F with a PMH of Lung Ca s/p resection, non-TB mycobactrium lung infection (she has yet to start treatment for this -- follows with ID/Pulm on [place]), COPD, HLD, active smoking who presents to the ED with respiratory symptoms. She is diagnosed with influenza A infection leading to COPD exacerbation and respiratory failure with hypoxia. She remains hypoxic despite treatment in the ED and hence will be admitted for further treatment. 1. Acute Respiratory Failure with hypoxia due to COPD exacerbation due to Influenza A infection Continue supplemental o2 -- goal 92 Continue solu-medrol and scheduled + PRN bronchodilators CT with no acute findings Given tamiflu 75mg initially -- start 30mg BID (renally dosed -- CrCl less than 60). 2. HLD on rasouvastatin at home -- cannot tolerate lipitor hold statin while hospitalized 3. 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 Tobacco use NRT if patient requested cessation has been encouraged Full Code DVT pptx, Lovenox Due to the patient's respiratory failure requiring supplemental oxygen and COPD exacerbation -- she will require continued inpatient hospitalization. Quality Stroke Does the patient have a stroke diagnosis?: No VTE Prior VTE?: No VTE Risk Level:: Medical - moderate - high VTE Device Contraindication: N/A - Device Ordered VTE Drug Contraindication: N/A - Med Ordered
[2022-01-13] MEDS: Fluticasone/Vilanterol 200/25 BLST.W.DEV 1 PUFF INHALE (09:32)
--- NOTE | 2022-01-13 09:50 | MHC.CM.PN ---
pt lives with brother ,has no servceis is covid vax x 2 has own ride home dc plan home no servceis
[2022-01-13] MEDS: Enoxaparin Sodium 40 MG/0.4 ML SYRINGE SUBCUT (14:50)
[2022-01-13] MEDS: Albuterol/Iprat 2.5/0.5MG 3 ML AMPUL.NEB INHALE (16:47)
--- NOTE | 2022-01-13 19:39 | PC.NURSE ---
Patient requested albuterol inhaler, stated duoneb does not work for her shortness of breath as well as albuterol inhaler. Inhaler was ordered and pharmacy contacted with the request.
[2022-01-14 03:57] VITALS: BP 115/66; RESP 16; TEMP 36.9; O2SAT 99
[2022-01-14] MEDS: methylPREDNISolone Sod Succ 40 MG/ML VIAL IVPUSH ×2 (06:20→18:12)
[2022-01-14] MEDS: Albuterol Sulfate 90 MCG 8 GM INHALER 2 PUFF INHALE (07:28)
[2022-01-14] MEDS: Fluticasone/Vilanterol 200/25 BLST.W.DEV 1 PUFF INHALE (07:28)
[2022-01-14 07:30] VITALS: PULSE 87; RESP 16; O2SAT 95
[2022-01-14 07:37] VITALS: PULSE 87; RESP 18
[2022-01-14 07:43] VITALS: BP 122/59; PULSE 87; RESP 22; TEMP 37; O2SAT 93
--- NOTE | 2022-01-14 08:38 | P.PNIM_ITS ---
Subjective Subjective Date of Service: 01/14/22 <JALEEL Trujillo - Last Filed: 01/14/22 08:51> 01/15/22 <Mode Porter MD - Last Filed: 01/15/22 10:09> Interval History: Pt seen for f/u for acute respiratory failure with hypoxia due COPD exacerbation due to influenza A infection. Interval history: Pt seen in room, resting comfortably in bed. No acute concerns overnight. States she is feeling about the same as yesterday, which is much better than when she first arrived. Pt not on O2 at home, nasal canula decreased to 2L. Pt notes some lightheadedness and SOB with walking to the bathroom. Denies SOB at rest. Pt's inhalers finally arrived and had her first treatment this morning. Intermittent productive cough. <JALEEL Trujillo - Last Filed: 01/14/22 08:51> Review of Systems Lightheadedness and SOB with exertion Denies SOB at rest Intermittent productive cough No chest pain/pressure <JALEEL Trujillo - Last Filed: 01/14/22 08:51> Review of Systems: Yes all other systems are reviewed and are negative <JALEEL Trujillo - Last Filed: 01/14/22 08:51> Physical Exam Vital Signs: Vital Signs: Last Vital Signs Temp 98.6 F 01/14/22 07:43 Pulse 87 01/14/22 07:43 Resp 22 H 01/14/22 07:43 BP 122/59 L 01/14/22 07:43 Pulse Ox 93 01/14/22 07:43 O2 Del Method 01/14/22 07:43 O2 Flow Rate 2 01/14/22 07:43 BMI result Body Mass Index 24.1 <JALEEL Trujillo - Last Filed: 01/14/22 08:51> General: AOx3, no acute distress Resp: Diffuse expiratory wheezing bilaterally CVS: S1, S2, RRR GI: +BS, NT, no distention Skin: No rash Neuro: Motor grossly intact Psych: Appropriate affect <JALEEL Trujillo Last Filed: 01/14/22 08:51> Objective Data Active Medications Acetaminophen (Acetaminophen 325 Mg Tablet) 650 mg PO Q6H PRN PRN Reason: Pain, Mild (Pain Scale 1-3) Albuterol Sulfate (Albuterol Sulfate 90 Mcg 8 Gm Inhaler) 2 puff INHALE RQ4H PRN PRN Reason: shorness of breath Last Admin: 01/14/22 07:28 Dose: 2 puff Documented By: LC Albuterol/Ipratropium (Albuterol/Iprat 2.5/0.5mg 3 Ml Ampul.Neb) 3 ml INHALE RQ4H WHILE AWAKE PRN PRN Reason: wheezing/shortness of breath Last Admin: 01/13/22 16:47 Dose: 3 ml Documented By: LC Benzonatate (Benzonatate 100 Mg Capsule) 200 mg PO TID PRN PRN Reason: cough Last Admin: 01/13/22 00:12 Dose: 200 mg Documented By: PRISCILLA Cyanocobalamin (Cyanocobalamin (Vitamin B-12) 1,000 Mcg Tablet) 1,000 mcg PO DAILY [facility] Last Admin: 01/13/22 08:29 Dose: 1,000 mcg Documented By: LYDIA Enoxaparin Sodium (Enoxaparin Sodium 40 Mg/0.4 Ml Syringe) 40 mg SUBCUT Q24H [facility] Last Admin: 01/13/22 14:50 Dose: 40 mg Documented By: LYDIA Fluticasone/Vilanterol (Fluticasone/Vilanterol 200/25 Blst.W.Dev) 1 puff INHALE RDAILY [facility] Last Admin: 01/14/22 07:28 Dose: 1 puff Documented By: LC Methylprednisolone Sodium Succinate (Methylprednisolone Sod Succ 40 Mg/Ml Vial) 40 mg IVPUSH Q12H [facility] Last Admin: 01/14/22 06:20 Dose: 40 mg Documented By: RHODA Ondansetron HCl (Ondansetron Hcl 4 Mg/2 Ml Vial) 4 mg IVPUSH Q8H PRN PRN Reason: Nausea and Vomiting Oseltamivir Phosphate (Oseltamivir Phosphate 30 Mg Capsule) 30 mg PO BID [facility] Stop: 01/17/22 09:01 Last Admin: 01/13/22 22:41 Dose: 30 mg Documented By: ERWIN Pharmacy Consult (Consult Rx Perform Med Rec) 1 each MISCELLANE ONCE PRN PRN Reason: Consult order Sodium Chloride (0.9 % Sodium Chloride Flush 3 Ml Syringe) 3 ml IVFLUSH QSHIFT [facility] Last Admin: 01/13/22 23:27 Dose: 3 ml Documented By: RHODA Tiotropium [place] (Tiotropium [place] 18 Mcg Cap.W.Dev) 1 puff INHALE RDAILY [facility] Last Admin: 01/14/22 07:28 Dose: 1 puff Documented By: LC <JALEEL Trujillo - Last Filed: 01/14/22 08:51> Labs CBC & Chem 7: : 01/13/22 06:01 01/13/22 06:01 <JALEEL Trujillo - Last Filed: 01/14/22 08:51> Microbiology Microbiology Results: Microbiology 01/12/22 10:59 Blood Culture - Preliminary Blood - Venous No growth after 24 hours. 01/12/22 10:45 Blood Culture - Preliminary Blood - Venous No growth after 24 hours. <JALEEL Trujillo - Last Filed: 01/14/22 08:51> Assessment and Plan (1) Acute exacerbation of chronic obstructive airways disease: Status: Acute <JALEEL Trujillo - Last Filed: 01/14/22 08:51> (2) Hypoxia: Status: Acute <JALEEL Trujillo - Last Filed: 01/14/22 08:51> (3) Influenza A: Status: Acute <JALEEL Trujillo - Last Filed: 01/14/22 08:51> Assessment and Plan: 66 yo F with a PMH of Lung Ca s/p resection, non-TB mycobactrium lung infection (she has yet to start treatment for this -- follows with ID/Pulm on [place]), COPD, HLD, active smoking who presented to the ED with respiratory symptoms. She was diagnosed with influenza A infection leading to COPD exacerbation and respiratory failure with hypoxia. She was admitted for further treatment d/t remaining hypoxic despite treatment in the ED. 1. Acute Respiratory Failure with hypoxia due to COPD exacerbation due to Influenza A infection Continue supplemental o2 -- goal 92 Continue solu-medrol and scheduled + PRN bronchodilators CT with no acute findings Given tamiflu 75mg initially -- now on 30mg BID, day 3 (renally dosed -- CrCl less than 60). 2. HLD on rasouvastatin at home -- cannot tolerate lipitor hold statin while hospitalized 3. 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 Tobacco use NRT if patient requested cessation has been encouraged Full Code DVT pptx, Lovenox Due to the patient's respiratory failure requiring supplemental oxygen and COPD exacerbation -- she will require continued inpatient hospitalization. <JALEEL Trujillo - Last Filed: 01/14/22 08:51> Quality Stroke Does the patient have a stroke diagnosis?: No <JALEEL Trujillo - Last Filed: 01/14/22 08:51> VTE Prior VTE?: No <JALEEL Trujillo - Last Filed: 01/14/22 08:51> VTE Risk Level:: Medical - moderate - high <JALEEL Trujillo - Last Filed: 01/14/22 08:51> VTE Device Contraindication: N/A - Device Ordered <JALEEL Trujillo - Last Filed: 01/14/22 08:51> VTE Drug Contraindication: N/A - Med Ordered <JALEEL Trujillo - Last Filed: 01/14/22 08:51>
[2022-01-14] MEDS: Cyanocobalamin (Vitamin B-12) 1,000 MCG TABLET 1000 MCG PO (10:38)
[2022-01-14] MEDS: Oseltamivir Phosphate 30 MG CAPSULE PO ×2 (10:38→21:05)
[2022-01-14] MEDS: 0.9 % Sodium Chloride Flush 3 ML SYRINGE IVFLUSH ×2 (10:38→16:15)
--- NOTE | 2022-01-14 12:31 | MHC.CM.PN ---
pt dcd home no skilled sercveis ordered by
[2022-01-14] MEDS: Enoxaparin Sodium 40 MG/0.4 ML SYRINGE SUBCUT (14:36)
[2022-01-14 15:18] VITALS: BP 124/62; PULSE 86; RESP 20; TEMP 37.1; O2SAT 95
[2022-01-14 23:14] VITALS: BP 127/61; PULSE 80; RESP 16; TEMP 36.5; O2SAT 92
[2022-01-15] MEDS: 0.9 % Sodium Chloride Flush 3 ML SYRINGE IVFLUSH ×2 (01:03→07:42)
[2022-01-15 07:12] VITALS: BP 119/61; PULSE 79; RESP 20; TEMP 36.3; O2SAT 95
[2022-01-15] MEDS: Fluticasone/Vilanterol 200/25 BLST.W.DEV 1 PUFF INHALE (07:38)
[2022-01-15] MEDS: Cyanocobalamin (Vitamin B-12) 1,000 MCG TABLET 1000 MCG PO (07:38)
[2022-01-15] MEDS: methylPREDNISolone Sod Succ 40 MG/ML VIAL IVPUSH (07:38)
[2022-01-15] MEDS: Oseltamivir Phosphate 30 MG CAPSULE PO (07:38)
[2022-01-15 07:39] VITALS: PULSE 88; RESP 16; O2SAT 95
--- NOTE | 2022-01-15 08:31 | P.PNIM_ITS ---
Subjective Subjective Date of Service: 01/15/22 <JALEEL Trujillo - Last Filed: 01/15/22 08:59> 01/15/22 <Mode Porter MD - Last Filed: 01/15/22 10:09> Interval History: Pt seen for f/u for acute respiratory failure with hypoxia due COPD exacerbation due to influenza A infection. Interval history: Pt seen in room, resting comfortably in bed. No acute concerns overnight. Pt no longer on supplemental O2 and states she feels about the same as yesterday. Continued intermittent productive cough. Ambulated yesterday down hallway and felt some SOB, O2 sat down to the mid 80s. Will repeat later today; if O2 in 90s, pt to be discharged. <JALEEL Trujillo - Last Filed: 01/15/22 08:59> Review of Systems Intermittent productive cough Slight SOB with exertion No chest pain/pressure <JALEEL Trujillo - Last Filed: 01/15/22 08:59> Review of Systems: Yes all other systems are reviewed and are negative <JALEEL Trujillo - Last Filed: 01/15/22 08:59> Physical Exam Vital Signs: Vital Signs: Last Vital Signs Temp 97.4 F 01/15/22 07:12 Pulse 88 01/15/22 07:39 Resp 16 01/15/22 07:39 BP 119/61 01/15/22 07:12 Pulse Ox 95 01/15/22 07:12 O2 Del Method 01/15/22 07:12 O2 Flow Rate 2 01/14/22 07:43 BMI result Body Mass Index 24.1 <JALEEL Trujillo - Last Filed: 01/15/22 08:59> General: AOx3, no acute distress Ears: TM pearly davis, translucent, without bulging bliaterally. Light reflex seen bilaterally Resp: lungs CTA bilaterally CVS: S1, S2, RRR GI: +BS, NT, no distention Skin: No rash Neuro: Motor grossly intact Psych: Appropriate affect <JALEEL Trujillo Last Filed: 01/15/22 08:59> Objective Data Active Medications Acetaminophen (Acetaminophen 325 Mg Tablet) 650 mg PO Q6H PRN PRN Reason: Pain, Mild (Pain Scale 1-3) Albuterol Sulfate (Albuterol Sulfate 90 Mcg 8 Gm Inhaler) 2 puff INHALE RQ4H PRN PRN Reason: shorness of breath Last Admin: 01/14/22 07:28 Dose: 2 puff Documented By: LC Albuterol/Ipratropium (Albuterol/Iprat 2.5/0.5mg 3 Ml Ampul.Neb) 3 ml INHALE RQ4H WHILE AWAKE PRN PRN Reason: wheezing/shortness of breath Last Admin: 01/13/22 16:47 Dose: 3 ml Documented By: LC Benzonatate (Benzonatate 100 Mg Capsule) 200 mg PO TID PRN PRN Reason: cough Last Admin: 01/13/22 00:12 Dose: 200 mg Documented By: PRISCILLA Cyanocobalamin (Cyanocobalamin (Vitamin B-12) 1,000 Mcg Tablet) 1,000 mcg PO DAILY [facility] Last Admin: 01/15/22 07:38 Dose: 1,000 mcg Documented By: NAKIA Enoxaparin Sodium (Enoxaparin Sodium 40 Mg/0.4 Ml Syringe) 40 mg SUBCUT Q24H [facility] Last Admin: 01/14/22 14:36 Dose: 40 mg Documented By: TERI Fluticasone/Vilanterol (Fluticasone/Vilanterol 200/25 Blst.W.Dev) 1 puff INHALE RDAILY [facility] Last Admin: 01/15/22 07:38 Dose: 1 puff Documented By: CODY Methylprednisolone Sodium Succinate (Methylprednisolone Sod Succ 40 Mg/Ml Vial) 40 mg IVPUSH Q12H [facility] Last Admin: 01/15/22 07:38 Dose: 40 mg Documented By: NAKIA Ondansetron HCl (Ondansetron Hcl 4 Mg/2 Ml Vial) 4 mg IVPUSH Q8H PRN PRN Reason: Nausea and Vomiting Oseltamivir Phosphate (Oseltamivir Phosphate 30 Mg Capsule) 30 mg PO BID [facility] Stop: 01/17/22 09:01 Last Admin: 01/15/22 07:38 Dose: 30 mg Documented By: NAKIA Pharmacy Consult (Consult Rx Perform Med Rec) 1 each MISCELLANE ONCE PRN PRN Reason: Consult order Sodium Chloride (0.9 % Sodium Chloride Flush 3 Ml Syringe) 3 ml IVFLUSH QSHIFT [facility] Last Admin: 01/15/22 07:42 Dose: 3 ml Documented By: NAKIA Tiotropium [place] (Tiotropium [place] 18 Mcg Cap.W.Dev) 1 puff INHALE RDAILY [facility] Last Admin: 01/15/22 07:38 Dose: 1 puff Documented By: FIDELC <JALEEL Trujillo - Last Filed: 01/15/22 08:59> Labs CBC & Chem 7: : 01/13/22 06:01 01/13/22 06:01 <JALEEL Trujillo - Last Filed: 01/15/22 08:59> Microbiology Microbiology Results: Microbiology 01/12/22 10:59 Blood Culture - Preliminary Blood - Venous No growth after 48 hours. 01/12/22 10:45 Blood Culture - Preliminary Blood - Venous No growth after 48 hours. <JALEEL Trujillo - Last Filed: 01/15/22 08:59> Assessment and Plan (1) Acute exacerbation of chronic obstructive airways disease: Status: Acute <JALEEL Trujillo - Last Filed: 01/15/22 08:59> (2) Influenza A: Status: Acute <JALEEL Trujillo - Last Filed: 01/15/22 08:59> Assessment and Plan: 66 yo F with a PMH of Lung Ca s/p resection, non-TB mycobactrium lung infection (she has yet to start treatment for this -- follows with ID/Pulm on [place]), COPD, HLD, active smoking who presented to the ED with respiratory symptoms. She was diagnosed with influenza A infection leading to COPD exacerbation and respiratory failure with hypoxia. She was admitted for further treatment d/t remaining hypoxic despite treatment in the ED. 1. Acute Respiratory Failure with hypoxia due to COPD exacerbation due to Influenza A infection Now on RA Ambulate in [place] on RA with goal of O2 sat >90 Continue solu-medrol and scheduled + PRN bronchodilators CT with no acute findings Given tamiflu 75mg initially -- now on 30mg BID, day 4 (renally dosed -- CrCl less than 60). 2. HLD on rasouvastatin at home -- cannot tolerate lipitor hold statin while hospitalized 3. 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 Tobacco use NRT if patient requested cessation has been encouraged Full Code DVT pptx, Lovenox Pt feeling much better and now on RA. Pt will ambulate in [place] today and if O2 sat is above 90 will discharge. <JALEEL Trujillo - Last Filed: 01/15/22 08:59> Quality Stroke Does the patient have a stroke diagnosis?: No <JALEEL Trujillo - Last Filed: 01/15/22 08:59> VTE Prior VTE?: No <JALEEL Trujillo - Last Filed: 01/15/22 08:59> VTE Risk Level:: Medical - moderate - high <JALEEL Trujillo - Last Filed: 01/15/22 08:59> VTE Device Contraindication: N/A - Device Ordered <JALEEL Trujillo - Last Filed: 01/15/22 08:59> VTE Drug Contraindication: N/A - Med Ordered <JALEEL Trujillo - Last Filed: 01/15/22 08:59>
--- NOTE | 2022-01-15 11:30 | P.DS_ITS ---
DS: Providers Provider Date of Service: 01/15/22 Date of admission: 01/12/22 13:28 Primary care physician: Jeremiah Kennedy MD DS: Diagnosis Discharge Diagnosis (1) Acute exacerbation of chronic obstructive airways disease: Status: Acute (2) Influenza A: Status: Acute DS: Summary Hospital Course Hospital Course: Chief Complaint: shortness of breath, cough, muscle aches and pains This is a 66 yo F with a PMH of Lung Ca -- s/p resection (did not need chemo/radiation), non-TB mycobactrium lung infection (was to start treatment since August of this year, but has yet to being antibiotics), COPD and active tobacco use, HLD who presents to the ED with a 4 day history of generalized malaise, muscle aches, fatigue, poor oral intake, productive cough (intermittently blood tinged) and progresssive shortness of breath with asso ciated fevers and chills. No sick contacts reported. She states that her shortness of breath continued to worsen and hence, she presented to the ED. Per ED notes -- when paramedics arrived, the patient's pulse ox was 86% on RA. She was placed on 100% NRM and given a DuoNeb in route. In the Ed, the patients work up showed a cxr without any infiltrates. She is flu A positve. She was treated with tamiflu, solu-medrol, IV toradol, 2gm of IV mag and 2g of rocephin. She had some improvement in symptoms but when attempted to wean her oxygen, she desaturated below 88% and hence, placed back on 4L NC. She will now be admitted for further treatment. Hospital course: 1. Acute Respiratory Failure with hypoxia due to COPD exacerbation trigered by Influenza A, she was treated with supportive care and Tamiflu for influenza, initially was hypoxic but over the course of hospitalization, hypoxia has resolved and now on room and doing well, breathing comfortabley. Will complete 5 day course of Tamiflu. For copd exacerbation, treated with IV steroid, bronchodilators by Neb and and will discharge with Prednisone for 3 more days. Smoking cessation was strongly encouaaged 2. HLD--Statin as before on rasouvastatin at home -- cannot tolerate lipitor hold statin while hospitalized 3. 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)--to follow prior outpatient plan and recommendation Time Spent with Patient Time attestation: Total time spent providing and/or coordinating discharge services: Discharge coordination time: Greater than 30 minutes Quality: Safe Use of Opioids Does Pt have an Active Cancer Diagnosis on the Problem List?: No Quality: Stroke Does the patient have a stroke diagnosis?: No Physical Exam Vital Signs: Vital Signs: Last Vital Signs Temp 97.4 F 01/15/22 07:12 Pulse 88 01/15/22 07:39 Resp 16 01/15/22 07:39 BP 119/61 01/15/22 07:12 Pulse Ox 95 01/15/22 07:12 O2 Del Method 01/15/22 07:12 O2 Flow Rate 2 01/14/22 07:43 BMI result Body Mass Index 24.1 DS: Data Data Completed and Pending Labs on day of discharge: Preliminary micro results at discharge 01/12/22 10:59 Blood Culture - Preliminary Blood - Venous No growth after 48 hours. 01/12/22 10:45 Blood Culture - Preliminary Blood - Venous No growth after 48 hours. Discharge Plan Discharge Anticipated Discharge Date/Time: 01/15/22 10:04 Patient Disposition: Home, Self-Care Discharge Diagnosis: Acute hypoxic respiratory failure due to influenza Referrals: Jeremiah Kennedy MD [Primary Care Provider] - 1 Week Discharge Medications: New oseltamivir 30 mg Capsule 30 mg PO BID Qty: 4 0RF prednisone 20 mg tablet 20 mg PO DAILY Qty: 3 0RF Continued albuterol sulfate 90 mcg/actuation Hfa Aerosol Inhaler 2 puff INHALATION QID PRN (Reason: Wheezing) rosuvastatin 5 mg tablet 1 tab PO MOTH Rx Instructions: Only takes once daily on wednesday and Spiriva with HandiHaler 18 mcg capsule, w/inhalation device 1 cap inhalation DAILY fluticasone furoate-vilanterol [Breo Ellipta] 200-25 mcg/dose blister with device 1 puff inhalation DAILY cyanocobalamin (vitamin B-12) 1,000 mcg Tablet 1,000 mcg PO DAILY Discharge Orders: Discharge Order (Routine); Ordered 01/15/22 Ordered By: Mode Porter Diet: Advance to usual diet Activity on Discharge: As tolerated Stand Alone Forms: Patient Portal Discharge page Care Plan Goals: Full recovery from flu Health Concerns: Influenza (Flu) Plan of Treatment: Take tamiflu as directed use inhalers and take prednisone for copd exacerbation Assessment: as above
--- NOTE | 2022-01-15 11:32 | MHC.CM.PN ---
Patient has been medically cleared for dc to home today, self care.
== END 2022-01-15 15:00 | disposition home or self-care (01) | DRG 193 ==
LOC: HO.ED 12:25 → HO.EDOVER 13:36 → HO.IMC 15:08
PROVIDERS: Physician Assistant Medical; Admitting Provider Family Medicine; Emergency Provider Emergency Medicine; PCP Family Medicine; Visit Provider Internal Medicine
DX: J10.1 Influenza due to other identified influenza virus with other respiratory manifestations (principal); J96.01 Acute respiratory failure with hypoxia; J44.1 Chronic obstructive pulmonary disease with (acute) exacerbation; A31.0 Pulmonary mycobacterial infection; E11.69 Type 2 diabetes mellitus with other specified complication; E78.5 Hyperlipidemia, unspecified; F17.210 Nicotine dependence, cigarettes, uncomplicated; Z85.118 Personal history of other malignant neoplasm of bronchus and lung; Z71.6 Tobacco abuse counseling; Z88.8 Allergy status to other drugs, medicaments and biological substances; Z79.51 Long term (current) use of inhaled steroids; Z79.899 Other long term (current) drug therapy
CPT/HCPCS: 0241U; 36415; 71046; 71250; 80048; 80053; 81003; 83605; 83735; 83880; 84484; 85025; 85027; 85610; 87040; 93005; 94640; 99285; J0696; J1650; J1885; J2920; J2930; J3475

== ENCOUNTER 2022-06-02 13:13 | Emergency (ER) | payer MEDICARE, SELFPAY ==
--- NOTE | ~2022-06-02 | CT_ITS ---
EXAMINATION: CT CHEST, ABDOMEN AND PELVIS WITH CONTRAST. CLINICAL INFORMATION: Reason for Exam fall L side pain, ecchymosis. COMPARISON: CT chest 01/12/2022. TECHNIQUE: Multidetector volumetric imaging was performed from the thoracic inlet through the pubic symphysis following administration of 85 mL Omnipaque 350 intravenous contrast. Sagittal and coronal reformatted images were obtained on the technologist's workstation. This CT examination was performed using dose optimization techniques as appropriate, variously including the following: *Automated exposure control *Adjustment of mA and/or kV according to patient size (this includes techniques or standardized protocols for targeted exams where dose is matched to indication/reason for exam; i.e. extremities or head) *Use of iterative reconstruction technique DLP: 270 and 432 mGy-cm FINDINGS: CHEST: Lung: Postsurgical changes in the bilateral upper lobes with similar associated parenchymal thickening, distortion and scarring. Background of diffuse bronchial wall thickening and emphysematous changes, not significantly changed. No new focal airspace opacity or significant groundglass disease. Central airways are patent. Multiple bilateral pulmonary nodules are not significantly changed compared to 01/12/2022, for example an irregular solid nodule in the medial right lower lobe measuring 1.3 x 0.9 cm (7:337), and a solid pulmonary nodule in the right upper lobe measuring 0.6 cm (7:192). Scattered calcified granulomas. Mediastinum: Normal heart size. Coronary artery calcifications are noted. No pericardial effusion. No hilar or mediastinal lymphadenopathy. Normal thyroid gland. Pericardium/Pleura: No pleural effusion. No pleural mass or thickening. No pneumothorax. Chest Wall/Axilla: No lymphadenopathy by size criteria. ABDOMEN/PELVIS: Peritoneal Space: No free air or free fluid. Liver, Gallbladder, Biliary Tree: The liver is normal in size, shape, and attenuation. Regional fatty infiltration adjacent to the fissure of the falciform ligament (13:21). No suspicious focal hepatic lesion or biliary ductal dilatation is present. The gallbladder is unremarkable with no evidence of radiopaque gallstones, gallbladder wall thickening, or obvious pericholecystic inflammatory changes. Pancreas: Unremarkable. Spleen: Unremarkable. Adrenal Glands: Unremarkable. Kidneys and Ureters: Nonobstructive bilateral renal calculi. Symmetric nephrograms. No hydronephrosis. No significant perinephric fat stranding. Bladder: Unremarkable. Gastrointestinal Tract: The stomach and the small bowel are nondilated. No findings to suspect acute colitis, diverticulitis or appendicitis. No evidence of bowel obstruction. Abdominal Wall: No significant hematoma. No hernia. Lymphovascular Structures: No lymphadenopathy by size criteria. Atherosclerotic disease. 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 2018; 67:2-77, the recommendation for an abdominal aorta <2.6 cm in diameter is no follow-up is recommended. Pelvic Viscera: Unremarkable. Osseous Structures: Vertebral body fracture at L3 with approximately 50% of vertebral body height loss and mild approximately 2 mm of retropulsion of the posterior fracture fragments into the anterior spinal canal. Posterior elements are intact CT/CT abdomen pelvis w IV con IMPRESSION: 1. Vertebral body fracture at L3 with approximately 50% of vertebral body height loss and mild retropulsion of the posterior fracture fragments into the anterior spinal canal. Posterior elements are intact. 2. No other acute traumatic injuries are identified in the chest, abdomen, or pelvis. 3. Multiple pulmonary nodules are not significantly changed compared to 01/12/2022, largest being an irregular shaped solid nodule measuring 1.3 cm in the right lower lobe. In this patient with high risk factors given the presence of fibrotic changes and emphysema, and in view of the irregular margins of this nodule, close attention on follow-up with an interval short-term follow-up chest CT in 3-6 months is recommended. 4. Nonobstructive bilateral renal calculi.
--- NOTE | ~2022-06-02 | CT_ITS ---
EXAMINATION: CT HEAD WITHOUT CONTRAST CT CERVICAL SPINE WITHOUT CONTRAST CLINICAL INFORMATION: Confusion, fall. COMPARISON: None TECHNIQUE: Contiguous axial imaging was performed from the skull base to vertex without intravenous administration of contrast. Contiguous axial imaging was performed from the upper chest through the skull base without intravenous administration of contrast. Coronal and sagittal reformats were obtained at the acquisition workstation. This CT examination was performed using dose optimization techniques as appropriate, variously including the following: *Automated exposure control *Adjustment of mA and/or kV according to patient size (this includes techniques or standardized protocols for targeted exams where dose is matched to indication/reason for exam; i.e. extremities or head) *Use of iterative reconstruction technique DLP: 590 and 222 mGy-cm FINDINGS: Head: There is no evidence of acute intracranial hemorrhage or edematous territorial infarction. A few foci of hypoattenuation in the periventricular and deep white matter are consistent with mild microangiopathy. Valera-white matter differentiation is preserved. Proportional prominence of the ventricles and sulcal spaces. No evidence for obstructive hydrocephalus. No abnormal mass effect or midline shift. No extra-axial fluid collections. No acute soft tissue or osseous abnormalities. Mucosal thickening of the right maxillary sinus. No air-fluid levels. The mastoids and middle ear cavities are clear. Cervical Spine: The atlantooccipital and atlantoaxial articulations remain well aligned. Straightening of the normal cervical lordosis. Otherwise, there is anatomic alignment of the vertebral bodies and posterior elements. No evidence of acute fracture or subluxation. Mild multilevel cervical spondylosis. There is no prevertebral soft tissue swelling. The thyroid gland and remaining cervical soft tissues are normal in appearance. Emphysematous changes with multifocal areas of subpleural scarring. CT/CT cervical spine wo IV con IMPRESSION: 1. No acute intracranial pathology. 2. No acute cervical spinal fractures or malalignment.
[2022-06-02 13:28] VITALS: BP 153/78; PULSE 93; RESP 17; TEMP 37.1; O2SAT 98; BMI 22.8
--- NOTE | 2022-06-02 13:28 | ED_ITS ---
HPI - Fall General Chief Complaint: General Medical <JALEEL Purvis - Last Filed: 06/02/22 13:38> Stated Complaint: Fall 05/31/ Coordination issues <JALEEL Purvis - Last Filed: 06/02/22 13:38> Time Seen by Provider: 06/02/22 15:48 <JALEEL Purvis - Last Filed: 06/02/22 13:38> Source: patient and family (Daughter and son-in-law) <Navin Sandra MD - Last Filed: 06/03/22 01:41> Mode of arrival: ambulatory <Navin Sandra MD - Last Filed: 06/03/22 01:41> Limitations: no limitations <Navin Sandra MD - Last Filed: 06/03/22 01:41> History of Present Illness HPI Narrative: 67-year-old female who presents emergency department for evaluation of confusion and a fall. The information came from the patient but from the daughter as well pain. On Wednesday05/31/2022 (3 days prior) the patient was talking to her daughter on the phone. The daughter noted that the patient's speech was slurred and incoherent. The patient apparently was tired and did not go upstairs to her room and slept on the sofa. At 03:00 hours the patient heard a loud noise and the door was open. The patient got up and states that she walked towards the door but then fell . The patient's brother found the patient lying on the dining room floor and the patient was incoherent and was having difficulty with her will memory. The patient states that she remembers the incident now. According to the daughter, the patient has been under stress since her fiance and the was this last week. Patient states that she did have 2 alcoholic beverage on some (White Russians). The daughter is also been concerned the patient has been walking on the sides of her feet which the patient states she is doing because she needs different slippers and she feels off balance when wearing her slippers. Since the fall, the patient is complaining lower back and left flank and hip pain. <Navin Sandra MD - Last Filed: 06/03/22 01:41> Related Data Home Medications: Home Medications Medication Instructions Recorded Confirmed albuterol sulfate 90 mcg/actuation 2 puff inhalation QID PRN Wheezing 01/12/22 01/12/22 aerosol inhaler cyanocobalamin (vitamin B-12) 1,000 mcg PO DAILY 01/12/22 01/12/22 1,000 mcg tablet fluticasone furoate 200 1 puff inhalation DAILY 01/12/22 01/12/22 mcg-vilanterol 25 mcg/dose inhalation powder (Breo Ellipta) rosuvastatin 5 mg tablet 1 tab PO MOTH 01/12/22 01/12/22 tiotropium bromide 18 mcg capsule 1 cap inhalation DAILY 01/12/22 01/12/22 with inhalation device (Spiriva with HandiHaler) Previous Rx's Medication Instructions Recorded oseltamivir 30 mg capsule 30 mg PO BID #4 caps 01/15/22 prednisone 20 mg tablet 20 mg PO DAILY #3 tabs 01/15/22 morphine 15 mg immediate release 15 mg PO Q4-6H PRN pain #10 tabs 06/02/22 tablet <JALEEL Purvis - Last Filed: 06/02/22 13:38> Allergies/Adverse Reactions: Allergies Allergy/AdvReac Type Severity Reaction Status Date / Time tree nut [TREE NUT] Allergy Intermediate MOUTH Unverified 10/26/19 14:51 TINGLING atorvastatin [Lipitor] Allergy Unknown Verified 09/18/19 00:00 ENVIRONMENTAL Allergy Intermediate NASAL Uncoded 10/26/19 14:51 CONGESTION <JALEEL Purvis - Last Filed: 06/02/22 13:38> Review of Systems Review of Systems: Yes all other systems are reviewed and are negative <Navin Sandra MD - Last Filed: 06/03/22 01:41> [facility] Past Medical History [facility] Narrative: Past medical history: Hyperlipidemia, COPD, lung cancer. Social history: She lives with her family. She does smoke cigarettes, she does drink alcohol, she denies drug use <Navin Sandra MD - Last Filed: 06/03/22 01:41> Medical History: Medical History COPD (chronic obstructive pulmonary disease) Hyperlipidemia associated with type 2 diabetes mellitus Lung cancer Non-tuberculous mycobacterial pneumonia <JALEEL Purvis - Last Filed: 06/02/22 13:38> Surgical History: Surgical History History of pneumonectomy <JALEEL Purvis - Last Filed: 06/02/22 13:38> Social History Social History: Social History Household Members: Family Housing: House Do you presently have visiting nurse or other home services: No Alcohol intake: current Alcohol intake frequency: a few times a week Alcohol type: hard liquor Patient Tobacco Use Status: Current everyday Tobacco user Tobacco use type: Cigarette Smoked in Last 30 Days: Yes e-Cigarette/Vaping Use: Never Used Use of substances other than those prescribed or required for medical reasons: No Advance Directives: No Advance Directives Information Provided: Yes service: No <JALEEL Purvis - Last Filed: 06/02/22 13:38> Physical Exam Vital Signs: Vital Signs: Last Vital Signs Temp 98.5 F 06/02/22 15:46 Pulse 87 06/02/22 15:46 Resp 16 06/02/22 15:46 BP 133/64 06/02/22 15:46 Pulse Ox 98 06/02/22 15:46 O2 Del Method Room Air 06/02/22 15:46 BMI result Body Mass Index 22.8 <JALEEL Purivs - Last Filed: 06/02/22 13:38> Vital Signs: Last Vital Signs Temp 98.5 F 06/02/22 15:46 Pulse 87 06/02/22 15:46 Resp 16 06/02/22 15:46 BP 133/64 06/02/22 15:46 Pulse Ox 98 06/02/22 15:46 O2 Del Method Room Air 06/02/22 15:46 BMI result Body Mass Index 22.8 <Navin Sandra MD - Last Filed: 06/03/22 01:41> Const: Other: Awake, alert, female patient pleasant, cooperative, answers all questions appropriately <Navin Sandra MD - Last Filed: 06/03/22 01:41> HEENT: Head: Yes normal to inspection, Yes normocephalic and Yes atraumatic <MD Diogo Stewart Last Filed: 06/03/22 01:41> Ears: external ears normal <MD Diogo Stewart Last Filed: 06/03/22 01:41> General nose exam: Normal external nose present <MD Diogo Stewart Last Filed: 06/03/22 01:41> Face and sinus: Yes normal facial exam <MD Diogo Stewart Last Filed: 06/03/22 01:41> Mouth: Normal oral and palatal mucosa present <MD Diogo Stewart Last Filed: 06/03/22 01:41> Throat: Yes posterior oropharynx normal <MD Diogo Stewart Last Filed: 06/03/22 01:41> Eyes: General: appearance normal, both eyes and all related structures <MD Diogo Stewart Last Filed: 06/03/22 01:41> Pupils: Equal, round and reactive pupils present <MD Diogo Stewart Last Filed: 06/03/22 01:41> Neck: Neck: Yes normal visual inspection, Yes no lymphadenopathy, Yes trachea midline and Yes supple <MD Diogo Stewart Last Filed: 06/03/22 01:41> Chest: Chest palpation & inspection: normal inspection of the chest and normal palpation of entire chest wall <MD Diogo Stewart Last Filed: 06/03/22 01:41> Resp: Effort & Inspection: normal respiratory effort and able to speak in complete sentences <MD Diogo Stewart Last Filed: 06/03/22 01:41> Auscultation: clear to auscultation bilaterally <MD Diogo Stewart Last Filed: 06/03/22 01:41> Cardio: Rate: regular rate <MD Diogo Stewart Last Filed: 06/03/22 01:41> Rhythm: regular rhythm <MD Diogo Stewart Last Filed: 06/03/22 01:41> Heart sounds: S1 normal heart sound present, S2 normal heart sound present and no murmurs <Navin Sandra MD - Last Filed: 06/03/22 01:41> GI: Inspection: Yes normal to inspection <Navin Sandra MD - Last Filed: 06/03/22 01:41> Palpation (GI): Soft to palpation, Tenderness to palpation present (GI) (Moderate left lower quadrant and left flank tender) and no guarding <Navin Sandra MD - Last Filed: 06/03/22 01:41> Auscultation: normal bowel sounds <Navin Sandra MD - Last Filed: 06/03/22 01:41> Back/Spine/Pelvis: Other: Tenderness with palpation over the lumbar vertebrae and over the lumbar sacral paraspinal muscles. <MD Diogo Stewart Last Filed: 06/03/22 01:41> Skin: General skin exam: no rashes or lesions noted <Navin Sandra MD - Last Filed: 06/03/22 01:41> Neuro: Other: Gait was normal <Navin Sandra MD - Last Filed: 06/03/22 01:41> Cranial nerves: Yes CN's II-XII intact bilaterally and Yes Equal, round and r eactive pupils present <MD Diogo Stewart Last Filed: 06/03/22 01:41> Cognition (Neuro): normal cognition <MD Diogo Stewart Last Filed: 06/03/22 01:41> Motor exam (neuro): 5/5 motor strength present throughout <MD Diogo Stewart Last Filed: 06/03/22 01:41> Extrem: Other: Patient does have tenderness palpation over left lateral hip with no palpable hematoma <MD Diogo Stewart Last Filed: 06/03/22 01:41> Psych: Appearance: grossly normal <MD Diogo Stewart Last Filed: 06/03/22 01:41> Speech and movement: Normal speech and movement present <MD Diogo Stewart Last Filed: 06/03/22 01:41> Affect: normal affect <MD Diogo Stewart Last Filed: 06/03/22 01:41> Attitude: cooperative <Navin Sandra MD - Last Filed: 06/03/22 01:41> Thought process: Normal thought process present <Navin Sandra MD - Last Filed: 06/03/22 01:41> Thought content: Normal thought content present <Navin Sandra MD - Last Filed: 06/03/22 01:41> Course Course Course Narrative: RME: 67yo F w/PMHx COPD, HLD, Lung CA, c/o confusion noted by family Wednesday night around 8PM while on the phone, then around 3AM patient was found on the ground by her brother w/L side stiffness & slurred speech. Now with persistent unsteady gait. patient with daughter in the ED. Denies taking AC +healing ecchymosis to L posterior ribs & L low back area w/ttp. Patient in wheelchair EKG, Labs, UA, CT's ordered Full HPI, ROS and PE to be performed by primary ED provider. <JALEEL Purvis - Last Filed: 06/02/22 13:38> Medications Administered Discontinued Medications Generic Name Dose Route Start Last Admin Trade Name Freq PRN Reason Stop Dose Admin Iohexol 100 ml 06/02/22 17:14 06/02/22 17:15 Iohexol 350 Mg/Ml 100 Ml Infus..Btl IV 06/02/22 17:15 85 ml ONCE ONE Administration Morphine Sulfate 4 mg 06/02/22 19:25 06/02/22 20:16 Morphine Sulfate 4 Mg/Ml Cartridge IVPUSH 06/02/22 19:26 4 mg ONCE STA Administration Protocol <JALEEL Purvis - Last Filed: 06/02/22 13:38> Medications Administered Discontinued Medications Generic Name Dose Route Start Last Admin Trade Name Freq PRN Reason Stop Dose Admin Iohexol 100 ml 06/02/22 17:14 06/02/22 17:15 Iohexol 350 Mg/Ml 100 Ml Infus..Btl IV 06/02/22 17:15 85 ml ONCE ONE Administration Morphine Sulfate 4 mg 06/02/22 19:25 06/02/22 20:16 Morphine Sulfate 4 Mg/Ml Cartridge IVPUSH 06/02/22 19:26 4 mg ONCE STA Administration Protocol <Navin Sandra MD - Last Filed: 06/03/22 01:41> Medical Decision Making Medical Decision Making MDM Narrative: 67-year-old female who presented to emergency department for evaluation of slurred speech at around 20:00 the evening of 05/30/2022 and a trip and fall at 03:00 hours on 05/31/2022. Patient was complaining of pain in her lower back and left flank area. The patient has been under significant stress secondary to her fiance recent and the being last week. The patient did drink several alcoholic beverages on the evening of the fall. Her daughter did note that her speech was slurred on the phone but did not see the patient in person. Since the fall, patient has been complaining of left flank, left hip and lower back pain. The provider at triage ordered a CBC, BMP, liver panel, lipase, magnesium, PT/INR, troponin, CPK. CT scan of the head, neck, chest, abdomen pelvis was also ordered. My interpretation laboratory evaluation as follows: WBC elevated 12,800. Glucose elevated 120. CK elevated 145. High sensitive troponin I was detectable but not elevated at 5.4. CT scan of the head and neck was unremarkable. CT scan of the chest did reveal pulmonary nodules with the largest 1 being 1.3 cm, unchanged from her previous. I did tell her that she will need to follow-up with her PCP to determine if she needs further testing such is PET scan. She states she is scheduled for PET scan in June 2022. CT scan of the abdomen pelvis did reveal a L3 vertebral concur depression fracture with 50% volume loss and mild retropulsion of the posterior fracture fragment into the anterior spinal canal with intact posterior elements. She was treated with morphine 4 mg IV. She states she cannot take Tylenol. She was advised to take ibuprofen 200 mg every 6 hours as needed for pain and for pain not relieved by ibuprofen she was prescribed morphine 15 mg every 4-6 hours as needed for pain. She was given printed and verbal instructions and discharged home. It is possible the patient's slurred speech may be related to alcohol use I did discuss this with her. I do not think that she has had a stroke at this time. Is also possible that her confusion after head injury was secondary to a concussion. <Navin Sandra MD - Last Filed: 06/03/22 01:41> Differential Diagnosis Differential diagnosis includes but not limited to cerebral bleed, stroke, metastatic disease, alcohol use disorder, depression, anxiety, electrolyte abno rmality, anemia, traumatic injury to chest/abdomen/spine <Navin Sandra MD - Last Filed: 06/03/22 01:41> Admission/Observation Consideration of admission/observation: Escalation of care including admission/observation considered <Navin Sandra MD - Last Filed: 06/03/22 01:41> Lab Data MDM Lab Attestation statement: I reviewed the patient's lab results. <Navin Sandra MD - Last Filed: 06/03/22 01:41> See MDM <Navin Sandra MD - Last Filed: 06/03/22 01:41> Result Diagrams: 06/02/22 13:48 06/02/22 13:48 <JALEEL Purvis - Last Filed: 06/02/22 13:38> Labs: Lab Results 06/02/22 06/02/22 06/02/22 Range/Units 13:48 13:48 13:48 WBC 12.8 H (4.8-10.8) X10*3/uL RBC 4.58 (4.20-5.50) X10*6/uL Hgb 13.9 (12.0-16.0) g/dl Hct 42.9 (37.0-47.0) % MCV 93.7 (80.0-98.0) fL MCH 30.3 (27.0-33.0) pg MCHC 32.4 (31.0-35.0) g/dl RDW 14.1 (11.0-16.0) % Plt Count 337 (160-400) X10*3/uL MPV 11.3 (9.4-12.3) fL Immature Gran % (Auto) 0.5 H (0.0-0.4) % Neut % (Auto) 71.6 (45-73) % Lymph % (Auto) 15.4 L (20-40) % Wagoner % (Auto) 11.1 H (2-11) % Eos % (Auto) 0.9 (0-4) % Baso % (Auto) 0.5 (0-2) % Lymph # (Auto) 2.0 (1.2-4.9) X10*3/uL Wagoner # (Auto) 1.4 H (0.1-1.2) X10*3/uL Eos # (Auto) 0.1 (0.0-0.4) X10*3/uL Baso # (Auto) 0.1 (0.0-0.2) X10*3/uL Abs Immat Gran (auto) 0.07 H (0.00-0.03) X10*3/uL Absolute Neuts (auto) 9.1 H (2.0-8.3) x10*3/uL Absolute Nucleated RBC 0.000 (0.0-0.012) X10*3/uL Nucleated RBC % (auto) 0.0 (0.0-0.2) /100WBC PT 10.6 (10.0-13.1) SEC INR 0.9 (0.9-1.1) Sodium 142 (135-145) mmol/L Potassium 4.3 (3.3-5.1) mmol/L Chloride 103 (96-108) mmol/L Carbon Dioxide 29 (22-29) mmol/L Anion Gap 14 (12-20) BUN 14 (9-16) mg/dL Creatinine 0.79 (0.5-1.4) mg/dL Estim Creat Clear Calc 53.9 Estimated GFR > 60 Random Glucose 120 H (60-115) mg/dL Calcium 10.1 D (8.4-10.2) mg/dL Magnesium 2.1 (1.6-2.6) mg/dL Total Bilirubin 0.9 (0.0-1.0) mg/dL Direct Bilirubin 0.2 (0.0-0.5) mg/dL AST 17 (5-31) U/L ALT 10 (0-31) U/L Alkaline Phosphatase 52 (39-117) U/L Total Creatine Kinase 145 H (26-140) U/L Troponin I High Sens (<3.5-17.0) ng/L Total Protein 6.9 (6.5-8.0) g/dL Albumin 4.5 (3.5-5.0) g/dL Lipase 11 (8-78) U/L 06/02/22 Range/Units 13:48 WBC (4.8-10.8) X10*3/uL RBC (4.20-5.50) X10*6/uL Hgb (12.0-16.0) g/dl Hct (37.0-47.0) % MCV (80.0-98.0) fL MCH (27.0-33.0) pg MCHC (31.0-35.0) g/dl RDW (11.0-16.0) % Plt Count (160-400) X10*3/uL MPV (9.4-12.3) fL Immature Gran % (Auto) (0.0-0.4) % Neut % (Auto) (45-73) % Lymph % (Auto) (20-40) % Wagoner % (Auto) (2-11) % Eos % (Auto) (0-4) % Baso % (Auto) (0-2) % Lymph # (Auto) (1.2-4.9) X10*3/uL Wagoner # (Auto) (0.1-1.2) X10*3/uL Eos # (Auto) (0.0-0.4) X10*3/uL Baso # (Auto) (0.0-0.2) X10*3/uL Abs Immat Gran (auto) (0.00-0.03) X10*3/uL Absolute Neuts (auto) (2.0-8.3) x10*3/uL Absolute Nucleated RBC (0.0-0.012) X10*3/uL Nucleated RBC % (auto) (0.0-0.2) /100WBC PT (10.0-13.1) SEC INR (0.9-1.1) Sodium (135-145) mmol/L Potassium (3.3-5.1) mmol/L Chloride (96-108) mmol/L Carbon Dioxide (22-29) mmol/L Anion Gap (12-20) BUN (9-16) mg/dL Creatinine (0.5-1.4) mg/dL Estim Creat Clear Calc Estimated GFR Random Glucose (60-115) mg/dL Calcium (8.4-10.2) mg/dL Magnesium (1.6-2.6) mg/dL Total Bilirubin (0.0-1.0) mg/dL Direct Bilirubin (0.0-0.5) mg/dL AST (5-31) U/L ALT (0-31) U/L Alkaline Phosphatase (39-117) U/L Total Creatine Kinase (26-140) U/L Troponin I High Sens 5.4 (<3.5-17.0) ng/L Total Protein (6.5-8.0) g/dL Albumin (3.5-5.0) g/dL Lipase (8-78) U/L <JALEEL Puvris - Last Filed: 06/02/22 13:38> Lab Results 06/02/22 06/02/22 06/02/22 Range/Units 13:48 13:48 13:48 WBC 12.8 H (4.8-10.8) X10*3/uL RBC 4.58 (4.20-5.50) X10*6/uL Hgb 13.9 (12.0-16.0) g/dl Hct 42.9 (37.0-47.0) % MCV 93.7 (80.0-98.0) fL MCH 30.3 (27.0-33.0) pg MCHC 32.4 (31.0-35.0) g/dl RDW 14.1 (11.0-16.0) % Plt Count 337 (160-400) X10*3/uL MPV 11.3 (9.4-12.3) fL Immature Gran % (Auto) 0.5 H (0.0-0.4) % Neut % (Auto) 71.6 (45-73) % Lymph % (Auto) 15.4 L (20-40) % Wagoner % (Auto) 11.1 H (2-11) % Eos % (Auto) 0.9 (0-4) % Baso % (Auto) 0.5 (0-2) % Lymph # (Auto) 2.0 (1.2-4.9) X10*3/uL Wagoner # (Auto) 1.4 H (0.1-1.2) X10*3/uL Eos # (Auto) 0.1 (0.0-0.4) X10*3/uL Baso # (Auto) 0.1 (0.0-0.2) X10*3/uL Abs Immat Gran (auto) 0.07 H (0.00-0.03) X10*3/uL Absolute Neuts (auto) 9.1 H (2.0-8.3) x10*3/uL Absolute Nucleated RBC 0.000 (0.0-0.012) X10*3/uL Nucleated RBC % (auto) 0.0 (0.0-0.2) /100WBC PT 10.6 (10.0-13.1) SEC INR 0.9 (0.9-1.1) Sodium 142 (135-145) mmol/L Potassium 4.3 (3.3-5.1) mmol/L Chloride 103 (96-108) mmol/L Carbon Dioxide 29 (22-29) mmol/L Anion Gap 14 (12-20) BUN 14 (9-16) mg/dL Creatinine 0.79 (0.5-1.4) mg/dL Estim Creat Clear Calc 53.9 Estimated GFR > 60 Random Glucose 120 H (60-115) mg/dL Calcium 10.1 D (8.4-10.2) mg/dL Magnesium 2.1 (1.6-2.6) mg/dL Total Bilirubin 0.9 (0.0-1.0) mg/dL Direct Bilirubin 0.2 (0.0-0.5) mg/dL AST 17 (5-31) U/L ALT 10 (0-31) U/L Alkaline Phosphatase 52 (39-117) U/L Total Creatine Kinase 145 H (26-140) U/L Troponin I High Sens (<3.5-17.0) ng/L Total Protein 6.9 (6.5-8.0) g/dL Albumin 4.5 (3.5-5.0) g/dL Lipase 11 (8-78) U/L 06/02/22 Range/Units 13:48 WBC (4.8-10.8) X10*3/uL RBC (4.20-5.50) X10*6/uL Hgb (12.0-16.0) g/dl Hct (37.0-47.0) % MCV (80.0-98.0) fL MCH (27.0-33.0) pg MCHC (31.0-35.0) g/dl RDW (11.0-16.0) % Plt Count (160-400) X10*3/uL MPV (9.4-12.3) fL Immature Gran % (Auto) (0.0-0.4) % Neut % (Auto) (45-73) % Lymph % (Auto) (20-40) % Wagoner % (Auto) (2-11) % Eos % (Auto) (0-4) % Baso % (Auto) (0-2) % Lymph # (Auto) (1.2-4.9) X10*3/uL Wagoner # (Auto) (0.1-1.2) X10*3/uL Eos # (Auto) (0.0-0.4) X10*3/uL Baso # (Auto) (0.0-0.2) X10*3/uL Abs Immat Gran (auto) (0.00-0.03) X10*3/uL Absolute Neuts (auto) (2.0-8.3) x10*3/uL Absolute Nucleated RBC (0.0-0.012) X10*3/uL Nucleated RBC % (auto) (0.0-0.2) /100WBC PT (10.0-13.1) SEC INR (0.9-1.1) Sodium (135-145) mmol/L Potassium (3.3-5.1) mmol/L Chloride (96-108) mmol/L Carbon Dioxide (22-29) mmol/L Anion Gap (12-20) BUN (9-16) mg/dL Creatinine (0.5-1.4) mg/dL Estim Creat Clear Calc Estimated GFR Random Glucose (60-115) mg/dL Calcium (8.4-10.2) mg/dL Magnesium (1.6-2.6) mg/dL Total Bilirubin (0.0-1.0) mg/dL Direct Bilirubin (0.0-0.5) mg/dL AST (5-31) U/L ALT (0-31) U/L Alkaline Phosphatase (39-117) U/L Total Creatine Kinase (26-140) U/L Troponin I High Sens 5.4 (<3.5-17.0) ng/L Total Protein (6.5-8.0) g/dL Albumin (3.5-5.0) g/dL Lipase (8-78) U/L <Navin Sandra MD - Last Filed: 06/03/22 01:41> Independent Interpretation I performed an independent interpretation of an: EKG <Navin Sandra MD - Last Filed: 06/03/22 01:41> Interpretation: My independent interpretation the patient's 12 EKG done at 13:40 hours is as follows: Normal sinus rhythm rate of 91, normal MI interval QRS duration QTC interval, no ST segment elevation, no ST segment depression, no T-wave abnormal ities, no PACs, no PVCs. <Navin Sandra MD - Last Filed: 06/03/22 01:41> Radiology Impression Discussion of test interpretation with radiology: I have reviewed the radiologist's reading. <Navin Sandra MD - Last Filed: 06/03/22 01:41> Radiologist Impression: IMPRESSION: 1. Vertebral body fracture at L3 with approximately 50% of vertebral body height loss and mild retropulsion of the posterior fracture fragments into the anterior spinal canal. Posterior elements are intact. 2. No other acute traumatic injuries are identified in the chest, abdomen, or pelvis. 3. Multiple pulmonary nodules are not significantly changed compared to 01/12/2022, largest being an irregular shaped solid nodule measuring 1.3 cm in the right lower lobe. In this patient with high risk factors given the presence of fibrotic changes and emphysema, and in view of the irregular margins of this nodule, close attention on follow-up with an interval short-term follow-up chest CT in 3-6 months is recommended. 4. Nonobstructive bilateral renal calculi. Dictated By:Tomasa Alex <Navin Sandra MD - Last Filed: 06/03/22 01:41> Independent Historian Clinical information obtained from an independent historian. History obtained from or confirmed by: Other (Daughter and son-in-law) <Navin Sandra MD - Last Filed: 06/03/22 01:41> Discharge Plan Discharge Clinical Impression: Fall, Compression fracture of L3 vertebra, Pulmonary nodule 1 cm or greater in diameter, Closed head injury <JALEEL Purvis - Last Filed: 06/02/22 13:38> Patient Disposition: Home, Self-Care <JALEEL Purvis - Last Filed: 06/02/22 13:38> Instructions: Vertebral Compression Fracture (ED) <JALEEL Purvis - Last Filed: 06/02/22 13:38> Additional Instructions: Your CT scan of your head and neck revealed no broken bones or bleeding in the brain. Your confusion after your fall is most likely caused by a head injury/concussion. The CT scan of your chest revealed no fractures however you do have multiple pulmonary nodules with the largest 1 being 1.3 cm in the right lower lobe your the radiologist states that this is unchanged compared to 01/12/2022 however it is important that you follow-up with your doctor to determine if you need any further testing for this pulmonary nodule. The CT scan of your abdomen pelvis did not reveal any broken bones of your pelvis/hip or significant injuries to your abdomen. You do have a compression fracture at L3 (the 3rd lumbar vertebra). You need to follow-up with her doctor for further management of this compression fracture and for pain management. Take ibuprofen 200 mg pills, 1 pills every 6 hours as needed for pain. For pain not relieved by ibuprofen take morphine 15 mg pills, 1 pill every 4 hours as needed for pain. This medication will make you sleepy, do not drive or work while taking this medication. You can try to break this pill in half of a pill cough and take half the dose and see how it makes you feel and if needed then you can take the full dose Morphine is a narcotic medication and can be addicting. If you are concerned about addiction you can ask the pharmacist for less pills or do not get this prescription filled. Follow-up with your doctor in 2 days. Please return to the emergency department if your symptoms get worse or if you develop any symptoms that are concerning to you. <JALEEL Purvis - Last Filed: 06/02/22 13:38> Prescriptions: New morphine 15 mg tablet 15 mg PO Q4-6H PRN (Reason: pain) Qty: 10 0RF Rx Instructions: The patient may ask for partial fill; Partial Fill upon patient request. No Action albuterol sulfate 90 mcg/actuation Hfa Aerosol Inhaler 2 puff INHALATION QID PRN (Reason: Wheezing) rosuvastatin 5 mg tablet 1 tab PO MOTH Rx Instructions: Only takes once daily on wednesday and Spiriva with HandiHaler 18 mcg capsule, w/inhalation device 1 cap inhalation DAILY fluticasone furoate-vilanterol [Breo Ellipta] 200-25 mcg/dose blister with device 1 puff inhalation DAILY cyanocobalamin (vitamin B-12) 1,000 mcg Tablet 1,000 mcg PO DAILY oseltamivir 30 mg Capsule 30 mg PO BID Qty: 4 0RF prednisone 20 mg tablet 20 mg PO DAILY Qty: 3 0RF <JALEEL Purvis - Last Filed: 06/02/22 13:38> Interventions: ED Discharge Assessment Last Done: 06/02/22 20:50 <JALEEL Purvis - Last Filed: 06/02/22 13:38> Discharge Date/Time: 06/02/22 21:08 <JALEEL Purvis - Last Filed: 06/02/22 13:38>
--- NOTE | 2022-06-02 13:34 | ECG_ITS ---
Test Reason : confusion Blood Pressure : / mmHG Vent. Rate : 091 BPM Atrial Rate : 091 BPM P-R Int : 128 ms QRS Dur : 076 ms QT Int : 334 ms P-R-T Axes : 073 050 059 degrees QTc Int : 410 ms Normal sinus rhythm Normal ECG When compared with ECG of 12-JAN-2022 10:29, Aberrant conduction is no longer Present Referred By: Lanie Kay Electronically Signed By:Peter Valdovinos
[2022-06-02 14:01] LABS: MANUAL DIFF FLAG NO
[2022-06-02 14:03] LABS: Basophils Absolute Auto 0.1 X10*3/uL (0.0-0.2); Basophils Percent Auto 0.5 % (0-2); Eosinophils Absolute Auto 0.1 X10*3/uL (0.0-0.4); Eosinophils Percent Auto 0.9 % (0-4); Hematocrit 42.9 % (37.0-47.0); Hemoglobin 13.9 g/dl (12.0-16.0); Imm Gran Abs Auto 0.07 X10*3/uL (0.00-0.03); Imm Gran Pct Auto 0.5 % (0.0-0.4); Lymphocytes Percent Auto 15.4 % (20-40); Mean Corpuscular HGB Conc 32.4 g/dl (31.0-35.0); Mean Corpuscular Hemoglobin 30.3 pg (27.0-33.0); Mean Corpuscular Volume 93.7 fL (80.0-98.0); Mean Platelet Volume 11.3 fL (9.4-12.3); Monocytes Absolute Auto 1.4 X10*3/uL (0.1-1.2); Monocytes Percent Auto 11.1 % (2-11); Neutrophils Absolute Auto 9.1 x10*3/uL (2.0-8.3); Neutrophils Percent Auto 71.6 % (45-73); Platelet Count 337 X10*3/uL (160-400); Red Blood Count 4.58 X10*6/uL (4.20-5.50); Red Cell Distribution Width 14.1 % (11.0-16.0); White Blood Count 12.8 X10*3/uL (4.8-10.8)
[2022-06-02 14:08] LABS: INTERNATIONAL NORM RATIO 0.9 (0.9-1.1); Prothrombin Time 10.6 SEC (10.0-13.1)
[2022-06-02 14:20] LABS: Alanine Aminotransferase 10 U/L (0-31); Albumin Level 4.5 g/dL (3.5-5.0); Alkaline Phosphatase 52 U/L (39-117); Anion Gap 14 (12-20); Aspartate Amino Transferase 17 U/L (5-31); Bilirubin Direct 0.2 mg/dL (0.0-0.5); Bilirubin Total 0.9 mg/dL (0.0-1.0); Blood Urea Nitrogen 14 mg/dL (9-16); Calcium 10.1 mg/dL (8.4-10.2); Carbon Dioxide 29 mmol/L (22-29); Chloride 103 mmol/L (96-108); Creatinine Clr Calc Pharmacy 53.9; Estimated Glomerular Filt Rate > 60; Glucose Random 120 mg/dL (60-115); Lipase 11 U/L (8-78); Magnesium 2.1 mg/dL (1.6-2.6); Potassium 4.3 mmol/L (3.3-5.1); Sodium 142 mmol/L (135-145); Total Protein 6.9 g/dL (6.5-8.0)
[2022-06-02 14:29] LABS: Troponin-I High Sensitivity 5.4 ng/L (<3.5-17.0)
[2022-06-02 15:46] VITALS: BP 133/64; PULSE 87; RESP 16; TEMP 36.9; O2SAT 98
[2022-06-02] MEDS: iohexoL 350 MG/ML 100 ML INFUS..BTL IV (17:15)
[2022-06-02] MEDS: Morphine Sulfate 4 MG/ML CARTRIDGE IVPUSH (20:16)
== END 2022-06-02 21:08 | disposition home or self-care (01) ==
PROVIDERS: Physician Assistant; Emergency Provider Emergency Medicine Emergency Medical Services; PCP Family Medicine
DX: S32.039A Unspecified fracture of third lumbar vertebra, initial encounter for closed fracture (principal); R91.1 Solitary pulmonary nodule; R51.9 Headache, unspecified; M25.552 Pain in left hip; M54.6 Pain in thoracic spine; R41.0 Disorientation, unspecified; M54.2 Cervicalgia; W01.0XXA Fall on same level from slipping, tripping and stumbling without subsequent striking against object, initial encounter; Y93.9 Activity, unspecified; Y92.9 Unspecified place or not applicable; Y99.9 Unspecified external cause status; F17.210 Nicotine dependence, cigarettes, uncomplicated; Z71.6 Tobacco abuse counseling; Z79.899 Other long term (current) drug therapy; Z63.8 Other specified problems related to primary support group
CPT/HCPCS: 36415; 70450; 71260; 72125; 74177; 80048; 80076; 82550; 83690; 83735; 84484; 85025; 85610; 93005; 96374; 99284; J2270; Q9967

== ENCOUNTER → 2022-08-10 10:28 | Outpatient (BNVA) | payer MEDICARE, SELFPAY | PROVIDERS: PCP Family Medicine; Visit Provider Internal Medicine | DX: R63.4 Abnormal weight loss (principal); R10.9 Unspecified abdominal pain; R91.1 Solitary pulmonary nodule; C34.90 Malignant neoplasm of unspecified part of unspecified bronchus or lung; A31.0 Pulmonary mycobacterial infection | CPT/HCPCS: 99202 ==

== ENCOUNTER 2022-08-26 08:48 | Outpatient (REF) | payer MEDICARE, SELFPAY ==
--- NOTE | ~2022-08-26 | US_ITS ---
EXAMINATION: US ABDOMEN COMPLETE CLINICAL INFORMATION: Unspecified abdominal pain. COMPARISON: CT abdomen and pelvis 06/02/2022. TECHNIQUE: Real-time imaging of the abdominal viscera. FINDINGS: PANCREAS: Normal. ABDOMINAL AORTA: The proximal and mid abdominal aorta are normal caliber. The distal abdominal aorta measures 2.6 cm in greatest dimension. INFERIOR VENA CAVA: Visualized portions are normal. LIVER: Normal. The liver is normal in size. The liver contour is normal. Parenchymal echogenicity is normal. No focal hepatic lesion. There is no intrahepatic biliary duct dilatation seen. GALLBLADDER: Normal. The gallbladder is physiologically distended without evidence of stones, sludge, polyps, wall thickening or pericholecystic fluid. COMMON BILE DUCT: Normal in caliber measuring 0.5 cm in diameter. RIGHT KIDNEY: 0.2 x 0.1 x 0.2 cm cortical calcification is seen in the medial mid kidney. There is mild caliectasis without natalie hydronephrosis. No focal parenchymal lesion. The kidney measures 10.1 cm in maximum dimension. LEFT KIDNEY: 0.3 x 0.2 x 0.3 cm nonobstructing calculus is seen in the lower pole. No hydronephrosis or focal parenchymal lesions. The kidney measures 9.8 cm in maximum dimension. SPLEEN: The spleen measures 6.6 cm in maximum dimension. FREE FLUID: None. US/US abdomen complete IMPRESSION: 1. 0.3 cm nonobstructing calculus in the lower pole of the left kidney. 2. 0.2 cm cortical calcification in the medial mid right kidney. 3. Mild caliectasis in the right kidney without natalie hydronephrosis. The distal abdominal aorta measures 2.6 cm in greatest dimension. Recommend followup every 5 years. Reference: J Am Venu Radiol 2013; 10 (10): 789-794.
[2022-08-26 10:51] LABS: Hematocrit 43.9 % (37.0-47.0); Hemoglobin 13.9 g/dl (12.0-16.0); Mean Corpuscular HGB Conc 31.7 g/dl (31.0-35.0); Mean Corpuscular Hemoglobin 29.7 pg (27.0-33.0); Mean Corpuscular Volume 93.8 fL (80.0-98.0); Mean Platelet Volume 11.1 fL (9.4-12.3); Platelet Count 429 X10*3/uL (160-400); Red Blood Count 4.68 X10*6/uL (4.20-5.50); Red Cell Distribution Width 14.9 % (11.0-16.0); White Blood Count 7.8 X10*3/uL (4.8-10.8)
[2022-08-26 10:55] LABS: Estimated Average Glucose 114 mg/dL; Hemoglobin A1C 137.3288 umol/L; Hemoglobin A1c % 5.6 %
[2022-08-26 11:35] LABS: Alanine Aminotransferase 6 U/L (0-31); Albumin Level 4.3 g/dL (3.5-5.0); Alkaline Phosphatase 54 U/L (39-117); Anion Gap 12 (12-20); Aspartate Amino Transferase 15 U/L (5-31); Bilirubin Total 0.6 mg/dL (0.0-1.0); Blood Urea Nitrogen 8 mg/dL (9-16); C Reactive Protein < 0.10 mg/dL (< or = 0.50); Calcium 10.1 mg/dL (8.4-10.2); Carbon Dioxide 29 mmol/L (22-29); Chloride 105 mmol/L (96-108); Estimated Glomerular Filt Rate > 60; Glucose Random 102 mg/dL (60-115); Iron 119 mcg/dL (30-160); Percent Iron Saturation 39 % (15-50); Sodium 142 mmol/L (135-145); Total Iron Binding Capacity 307 mcg/dL (228-428); Unsaturated Iron Binding 188 ug/dL
[2022-08-26 11:45] LABS: ~HepC Num1 0.05 S/CO (0.00-0.79); ~Hepatitis C Antibody Nonreactive (Nonreactive)
[2022-08-26 11:52] LABS: Ferritin 27 ng/mL (10-250); TSH reflex Free T4 2.61 uIU/mL (0.32-4.0)
[2022-08-26 11:53] LABS: HBS Num1 0.04 mIU/mL (0-7.99); HBc Num1 0.07 S/CO (0.00-0.79); HBsAGNum1 0.32 S/CO (0.00-0.99); HIV AB/AG Nonreactive (Nonreactive); HIV Num 1 0.04 S/CO (0.00-0.99); Hepatitis B Core Antibody Nonreactive (Nonreactive); Hepatitis B Surface Antigen Negative (Negative); ~Hepatitis B Surface Antibody NONREACTIVE (Nonreactive)
[2022-08-26 12:03] LABS: Hepatitis A Antibody IgG Nonreactive (Nonreactive); ~Hepatitis A Antibody IgG 0.17 S/CO (0.00-0.99)
[2022-08-28 15:14] LABS: Transglutaminase IgA <1.0 U/mL
[2022-08-28 18:28] LABS: Immunoglobulin A 215 mg/dL (70-320); Immunoglobulin G 655 mg/dL (600-1540)
== END 2022-08-26 08:49 | disposition home or self-care (01) ==
LOC: HO.US 08:48
PROVIDERS: PCP Family Medicine; Visit Provider Internal Medicine
DX: R10.9 Unspecified abdominal pain (principal); R63.4 Abnormal weight loss; K74.60 Unspecified cirrhosis of liver
CPT/HCPCS: 36415; 76700; 80053; 82728; 82784; 83036; 83540; 84443; 85027; 86140; 86364; 86704; 86706; 86708; 86803; 87340; 87389

== ENCOUNTER 2022-10-27 10:38 | Outpatient (AMB) | payer MEDICARE, SELFPAY ==
--- NOTE | 2022-10-27 11:27 | A.OFFVIS_ITS ---
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 Patient reports cortisone injection done about 6-7 years ago that provided her relief for about 6 months. Her pain has recently been getting worse, stating a constant pain and numbness in thigh area and down to her calf. States there is a lump at posterior aspect of knee. No home therapy. She would like to discuss possible injection. She denies any fevers or chills. She does not like taking medicines for discomfort. Allergies tree nut [TREE NUT] Allergy (Intermediate, Unverified 10/27/22 11:31) MOUTH TINGLING atorvastatin [Lipitor] Allergy (Unknown, Verified 10/27/22 11:31) Unknown ENVIRONMENTAL Allergy (Intermediate, Uncoded 10/27/22 11:31) NASAL CONGESTION Medication List - Last Reconciled 10/27/22 by Grant Albarado MD albuterol sulfate 90 mcg/actuation 2 puffs inhalation QID PRN alendronate 70 mg PO QWEEK cyanocobalamin (vitamin B-12) 1,000 mcg PO DAILY fluticasone furoate-vilanterol 200-25 mcg/dose (Breo Ellipta) 1 puff inhalation DAILY peg 3350-electrolytes 236-22.74-6.74 -5.86 gram (Golytely) 240 mL PO Q10M rosuvastatin 1 tab PO MOTH tiotropium bromide (Spiriva with HandiHaler) 1 cap inhalation DAILY [facility] Medical History (Updated 10/27/22 @ 12:11 by Grant Albarado MD) Hyperlipidemia associated with type 2 diabetes mellitus Non-tuberculous mycobacterial pneumonia Lung cancer COPD (chronic obstructive pulmonary disease) Surgical History Hx of colonoscopy History of esophagogastroduodenoscopy (EGD) History of pneumonectomy Social History Household Members: Family Housing: House Do you presently have visiting nurse or other home services: No Alcohol intake: current Alcohol intake frequency: a few times a week Alcohol type: hard liquor Patient Tobacco Use Status: Current everyday Tobacco user Tobacco use type: Cigarette e-Cigarette/Vaping Use: Never Used service: No Physical Exam Vital Signs: BMI result Body Mass Index 21.2 Const Other: Well-nourished well-developed very friendly female awake alert and oriented x3 in no acute distress Extrem Other: Bilateral lower extremity examination shows good capillary refill, no skin lesions noted, normal sensation light touch Left knee examination shows a minimal effusion, mild crepitus with range of motion, negative Messi's test, negative Hamilton's test Office Procedures Joint Injection/Drain Joint Injection/Drain Primary Site: left knee Prep: site was prepped using aseptic technique Injected: Kenalog and 1% plain lidocaine Procedure: The patient tolerated the procedure well Coding 22305 - Large joint Procedure code (CPT) selection complete Results Reviewed Results Reviewed: 10/27/22 11:43 Lidocaine HCl 2 % MPF [Xylocaine 2 % MPF] 5 ml .ROUTE .STK-MED ONE Triamcinolone Acetonide [Kenalog-40] 40 mg .ROUTE .STK-MED ONE X-rays of the patient's left knee show mild to moderate diffuse joint space narrowing, no acute bony Assessment & Plan Assessment & Plan (1) Arthritis of left knee: Code(s): M17.12 - Unilateral primary osteoarthritis, left knee Plan Ms. Bar presents with left knee pain due to degenerative joint disease. I had a lengthy discussion with the patient regarding the treatment options. She wishes to hold off on surgery for as long as possible. I agree with this plan. The risks and benefits of a left knee cortisone injection were discussed at length with the patient. The patient wished to proceed. She tolerated the injection well. She will continue with her home exercise program. She will follow up with me on an as-needed basis should her symptoms not plateau at an unacceptable level over the next few months. Feel free to call me at any time should questions regarding her orthopedic management arise. Thank you very much for asking me to see this very friendly patient. I spent 24 minutes in reviewing the patient's records and imaging studies, seeing the patient and documenting in the medical record. Orders: Orders XR knee LT 3V Today M25.562 - Pain in left knee AMB Joint Injection/Aspiration Today M17.12 - Unilateral primary osteoarthritis, left knee Coding Level of Care Code New Pt Level 2 (94158) Diagnoses Arthritis of left knee M17.12 CPT Codes Coding - 57071 Large joint: 38764 - Large joint ([id number])
[2022-10-27 11:34] VITALS: BMI 21.2
== END 2022-10-27 11:58 | disposition home or self-care (01) ==
PROVIDERS: PCP Family Medicine; Visit Provider Orthopaedic Surgery
DX: M17.12 Unilateral primary osteoarthritis, left knee (principal)
CPT/HCPCS: 20610; 99204

== ENCOUNTER 2022-10-27 11:14 | Outpatient (REF) | payer MEDICARE, SELFPAY ==
--- NOTE | ~2022-10-27 | XR_ITS ---
EXAMINATION: XR KNEE, LEFT CLINICAL INFORMATION: Left knee pain COMPARISON: None available. TECHNIQUE: Three views of the left knee. FINDINGS: Trace joint effusion. Bones are diffusely demineralized. Mild medial joint space narrowing. Vascular calcifications. Small rounded calcifications of varying sizes posterior to the knee of indeterminate etiology. XR/XR knee LT 3V IMPRESSION: Mild degenerative changes. Small rounded calcifications of varying sizes posterior to the knee of indeterminate etiology. Additional imaging with CT scan or MRI should be considered for better visualization as these modalities are much more sensitive for detection of fracture, mass or other underlying pathology.
== END 2022-10-27 11:15 | disposition home or self-care (01) ==
LOC: HO.HOSX 11:14
PROVIDERS: Visit Provider Orthopaedic Surgery
DX: M17.12 Unilateral primary osteoarthritis, left knee (principal)
CPT/HCPCS: 20610; 73562; J3301

== ENCOUNTER 2022-12-10 06:20 | Day surgery (SDC) | payer MEDICARE, SELFPAY ==
--- NOTE | 2022-12-09 10:32 | HO.ANESPROP2 ---
Documented by User: Cassandra Rush NP 12/09/22 10:36 HPI - Anesthesia Eval Consult details Narrative: 67yo F for Upper Endoscopy and Colonoscopy Lung CA s/p resection, no chemo/rad PMFSH Active Problems Active Problems: All Active Problems (Updated 10/27/22 @ 12:11 by Grant Albarado MD) Arthritis of left knee (Acute) Left knee pain (Acute) Lung nodule seen on imaging study (Acute) Lung cancer (Acute) Non-tuberculous mycobacterial pneumonia (Acute) Unintentional weight loss (Acute) Abdominal pain (Acute) Past Medical History Medical History (Updated 10/27/22 @ 12:11 by Grant Albarado MD) Hyperlipidemia associated with type 2 diabetes mellitus Non-tuberculous mycobacterial pneumonia Lung cancer COPD (chronic obstructive pulmonary disease) Surgical History Surgical History Hx of colonoscopy History of esophagogastroduodenoscopy (EGD) History of pneumonectomy Social History Social History Household Members: Family Housing: House Do you presently have visiting nurse or other home services: No Alcohol intake: current Alcohol intake frequency: a few times a week Alcohol type: hard liquor Patient Tobacco Use Status: Current everyday Tobacco user Tobacco use type: Cigarette e-Cigarette/Vaping Use: Never Used Advance Directives: No Advance Directives Information Provided: Yes service: No Meds Allergies Allergy/AdvReac Type Severity Reaction Status Date / Time tree nut [TREE NUT] Allergy Intermediate MOUTH Unverified 10/27/22 11:31 TINGLING atorvastatin [Lipitor] Allergy Unknown Unknown Verified 10/27/22 11:31 ENVIRONMENTAL Allergy Intermediate NASAL Uncoded 10/27/22 11:31 CONGESTION Home Medications Medication Instructions Recorded Confirmed Last Taken Type albuterol sulfate 90 mcg/actuation 2 puff inhalation QID PRN Wheezing 01/12/22 10/27/22 Unknown History aerosol inhaler cyanocobalamin (vitamin B-12) 1,000 mcg PO DAILY 01/12/22 10/27/22 Unknown History 1,000 mcg tablet fluticasone furoate 200 1 puff inhalation DAILY 01/12/22 10/27/22 Unknown History mcg-vilanterol 25 mcg/dose inhalation powder (Breo Ellipta) rosuvastatin 5 mg tablet 1 tab PO MOTH 01/12/22 10/27/22 Unknown History tiotropium bromide 18 mcg capsule 1 cap inhalation DAILY 01/12/22 10/27/22 Unknown History with inhalation device (Spiriva with HandiHaler) alendronate 70 mg tablet 70 mg PO QWEEK 08/10/22 Unknown History Exam Exam Date and Time: December 09, 2022 1032 Pertinent Lab Results Pertinent Lab Results: Laboratory Tests 08/26/22 10:14 WBC 7.8 Hgb 13.9 Hct 43.9 Plt Count 429 H D Sodium 142 Potassium 4.0 Chloride 105 Carbon Dioxide 29 BUN 8 L Creatinine 0.67 Narrative Narrative: EKG 05/2022 Vent. Rate : 091 BPM Atrial Rate : 091 BPM P-R Int : 128 ms QRS Dur : 076 ms QT Int : 334 ms P-R-T Axes : 073 050 059 degrees QTc Int : 410 ms Normal sinus rhythm Normal ECG When compared with ECG of 12-JAN-2022 10:29, Aberrant conduction is no longer Present Assessment and Plan Assessment Anesthesia Assessment: Chart Reviewed Documented by User: Bartolome Bobo MD 12/10/22 07:40 [facility] Past Medical History Medical History (Updated 10/27/22 @ 12:11 by Grant Albarado MD) Hyperlipidemia associated with type 2 diabetes mellitus Non-tuberculous mycobacterial pneumonia Lung cancer COPD (chronic obstructive pulmonary disease) Family History Family history of problems with anesthesia: No Surgical History Surgical History Hx of colonoscopy History of esophagogastroduodenoscopy (EGD) History of pneumonectomy History of Problems with Anesthesia: No Social History Social History Household Members: Family Housing: House Do you presently have visiting nurse or other home services: No Alcohol intake: current Alcohol intake frequency: a few times a week Alcohol type: hard liquor Patient Tobacco Use Status: Current everyday Tobacco user Tobacco use type: Cigarette e-Cigarette/Vaping Use: Never Used Advance Directives: No Advance Directives Information Provided: Yes service: No Meds Allergies Allergy/AdvReac Type Severity Reaction Status Date / Time tree nut [TREE NUT] Allergy Intermediate MOUTH Unverified 10/27/22 11:31 TINGLING atorvastatin [Lipitor] Allergy Unknown Unknown Verified 10/27/22 11:31 ENVIRONMENTAL Allergy Intermediate NASAL Uncoded 10/27/22 11:31 CONGESTION Home Medications Medication Instructions Recorded Confirmed Last Taken Type albuterol sulfate 90 mcg/actuation 2 puff inhalation QID PRN Wheezing 01/12/22 10/27/22 Unknown History aerosol inhaler cyanocobalamin (vitamin B-12) 1,000 mcg PO DAILY 01/12/22 10/27/22 Unknown History 1,000 mcg tablet fluticasone furoate 200 1 puff inhalation DAILY 01/12/22 10/27/22 Unknown History mcg-vilanterol 25 mcg/dose inhalation powder (Breo Ellipta) rosuvastatin 5 mg tablet 1 tab PO MOTH 01/12/22 10/27/22 Unknown History tiotropium bromide 18 mcg capsule 1 cap inhalation DAILY 01/12/22 10/27/22 Unknown History with inhalation device (Spiriva with HandiHaler) alendronate 70 mg tablet 70 mg PO QWEEK 08/10/22 Unknown History Exam Airway Mallampati Class: I TM Dist: >3cm Neck ROM: Full Loose/Missing/Broken Teeth: No Heart: ok Lungs: ok Assessment and Plan Assessment Anesthesia Assessment: Anesthesia Plan Discussed Final Anesthetic Review Family History of Problems with Anesthesia: No History of Problems with Anesthesia: No NPO: Yes ASA Class: III Final Preanesthetic Review: No Changes in Pt Med Stat, Meds/Allgs Chart Reviewed, Consent Obtained/Reviewed and Anes Risks/Benef Reviewed Patient Risk: Intermediate Procedure Risk: Intermediate Anesthetic Plan Anesthetic Plan: GA, MAC: and Agree w/ Assess. and Plan Disposition: Standard PACU
[2022-12-10 06:54] VITALS: BP 107/67; PULSE 86; RESP 16; TEMP 36.6; O2SAT 95; BMI 20.1
[2022-12-10] MEDS: Lactated Ringers 1,000 ML 100 ML IVCONT (06:56)
--- NOTE | 2022-12-10 07:48 | MHC.SHP ---
Pre-Procedural Eval Section A Date of Service: 12/10/22 Section B Chief Complaint: Abnormal weight loss,Left lower quadrant pain Details of Present Illness: PMH: COPD (chronic obstructive pulmonary disease) Hyperlipidemia associated with type 2 diabetes mellitus Lung cancer Non-tuberculous mycobacterial pneumonia Surgical History History of esophagogastroduodenoscopy (EGD) History of pneumonectomy Hx of colonoscopy Allergies: Allergies Allergy/AdvReac Type Severity Reaction Status Date / Time tree nut [TREE NUT] Allergy Intermediate MOUTH Unverified 10/27/22 11:31 TINGLING atorvastatin [Lipitor] Allergy Unknown Unknown Verified 10/27/22 11:31 ENVIRONMENTAL Allergy Intermediate NASAL Uncoded 10/27/22 11:31 CONGESTION Review of Systems Review of Systems Comment: Ten point ROS negative Exam Exam Comment: Gen appear: No acute distress HEENT: no icterus Chest: No overt resp distress Abd: soft, nontender, nondistended Psych: Stable affect, answering questions appropriately Neuro: A/Ox3 noted to move all extremities spontaneously Ext: no peripheral edema Plan Diagnosis/Plan: Unchanged I have reviewed the history and physical and performed a pertinent physical examination on my patient. No changes have occurred unless specified. Time Spent With Patient Time: Total time managing care of this patient today ____ minutes.
--- NOTE | 2022-12-10 08:34 | P.OP_ITS ---
Operative Note Operative Note Date of Service: 12/10/22 Narrative: Procedure:?Esophagogastroduodenoscopy and colonoscopy Endoscopist:?Nabila Wilkins MD Indication:?Unintentional weight loss, personal hx of polyps Anesthesia Provider:?Dr Bartolome Bobo Anesthesia Type:?MAC Instrument:?Olympus GIF-H190, PCF-H190L EGD Procedure:?? The procedure, indications, preparation and potential complications were reviewed with the patient who indicated understanding and gave written informed consent to proceed. A physical exam was performed. The endoscope was introduced through the mouth, and advanced to the second part of duodenum. The mucosa was carefully examined on slow withdrawal of the endoscope. There were no immediate complications. Patient tolerated the procedure well. EGD Findings:? * Esophagus:? Erosions and ulceration with scant heme was noted at the Z line at 35 cm. There was a moderate sized hiatal hernia with the diaphragmatic pinch at 40 cm. * Stomach:? Small erosions in the antrum. Retroflexion performed in the fundus. Cold forceps biopsies were taken from the stomach to r/o H Pylori. * Duodenum:? Normal duodenal mucosa noted to the extent examined. Cold forceps biopsies were taken from the duodenal bulb and second portion of the duodenum. Colonoscopy Procedure:? The patient was then turned for the colonoscopy. A digital rectal exam was performed which was abnormal for external hemorrhoids.? A distal attachment cap was affixed to the tip of the scope and the colonoscope was then inserted through the anus and advanced through the colon to the cecum at 80 cm and terminal ileum. Appendiceal orifice and ileocecal valve were identified. Mucosa was carefully examined under high definition white light as the instrument was slowly withdrawn in a retrograde panoramic fashion. Retroflexion was performed in rectum. The procedure was not difficult. There were no immediate obvious complications. The quality of the prep was BBPS: 3+2+2 = adequate Withdrawal time: 21 minutes Limitations: No limitation. Findings: Mucosa: Normal mucosa to cecum and terminal ileum. Cold forceps biopsies were taken from R and L side of the colon to r/o microscopic colitis. Protruding lesions: * Two sessile polyp of size 4 mm were noted in the ascending colon. Cold snare polypectomy was performed. The polyps were completely removed and retrieved. * Two sessile polyp of size 2-4 mm were noted in the transverse colon. Cold snare polypectomy was performed. The polyps were completely removed and retrieved. * Two sessile polyp of size 2 mm were noted in the descending colon. Cold forceps polypectomy was performed. The polyps were completely removed and retrieved. * One sessile polyp of size 4 mm was noted in the sigmoid colon. Cold snare polypectomy was performed. The was completely removed and retrieved. * Large internal hemorrhoids with stigmata of recent bleeding. Excavated lesions: * Scattered diverticulosis of the whole colon. Impression: 1. Grade C esophagitis 2. Gastritis (biopsy) 3. Normal duodenum (biopsy) 4. Normal colon and terminal ileum mucosa (biopsy) 5. Total of 7 polyps removed 6. External and internal hemorrhoids 7. Diverticulosis Recommendations:?? * Await pathology results. * Start omeprazole 20 BID x 8 weeks * She will be set up for repeat EGD in 8-10 weeks to assess for healing of esophagitis * If 3 or more polyps are adenomas, would recommend repeat colonoscopy in 3 years.
[2022-12-10 08:46] VITALS: BP 104/51; PULSE 75; RESP 16; TEMP 36.2; O2SAT 96
[2022-12-10 09:01] VITALS: BP 128/62; PULSE 65; RESP 16; O2SAT 98
[2022-12-10 09:15] VITALS: BP 124/61; PULSE 66; RESP 16; TEMP 36.2; O2SAT 98
== END 2022-12-10 10:17 | disposition home or self-care (01) ==
PROVIDERS: PCP Family Medicine; Visit Provider Internal Medicine
PROC: (CPT 43239; principal; 2022-12-10 07:30)
DX: K20.90 Esophagitis, unspecified without bleeding (principal); K29.70 Gastritis, unspecified, without bleeding; K31.89 Other diseases of stomach and duodenum; K44.9 Diaphragmatic hernia without obstruction or gangrene; K63.4 Enteroptosis; Z12.11 Encounter for screening for malignant neoplasm of colon; D12.2 Benign neoplasm of ascending colon; D12.3 Benign neoplasm of transverse colon; D12.4 Benign neoplasm of descending colon; D12.5 Benign neoplasm of sigmoid colon; K57.30 Diverticulosis of large intestine without perforation or abscess without bleeding; K64.4 Residual hemorrhoidal skin tags; K64.8 Other hemorrhoids; Z86.010 Personal history of colon polyps; R10.9 Unspecified abdominal pain; E78.5 Hyperlipidemia, unspecified; J44.9 Chronic obstructive pulmonary disease, unspecified; C34.90 Malignant neoplasm of unspecified part of unspecified bronchus or lung; F17.210 Nicotine dependence, cigarettes, uncomplicated; Z79.899 Other long term (current) drug therapy
CPT/HCPCS: 43239; 45385; 45380; 88305; 88342; J3010

== ENCOUNTER → 2022-12-10 06:20 | Outpatient (BNV) | payer MEDICARE, SELFPAY | PROVIDERS: PCP Family Medicine; Visit Provider Internal Medicine | DX: Z12.11 Encounter for screening for malignant neoplasm of colon (principal); Z86.010 Personal history of colon polyps; D12.2 Benign neoplasm of ascending colon; D12.3 Benign neoplasm of transverse colon; D12.4 Benign neoplasm of descending colon; D12.5 Benign neoplasm of sigmoid colon; K57.30 Diverticulosis of large intestine without perforation or abscess without bleeding; K64.8 Other hemorrhoids; K20.90 Esophagitis, unspecified without bleeding; K29.70 Gastritis, unspecified, without bleeding | CPT/HCPCS: 43239; 45385 ==

== ENCOUNTER 2022-12-21 12:41 | Outpatient (AMB) | payer MEDICARE, SELFPAY ==
--- NOTE | 2022-12-21 12:43 | A.OFFVIS_ITS ---
Intake Vital Signs 12/21/22 12:46 Height 5 ft 2 in Weight 110 lb 3.698 oz BMI 20.2 BP 118/62 Blood Pressure Location Lt brachial Position Sitting Pulse 99 Intake Visit Reasons: S/p egd/colon Intake Note: Deb presents in the office as a follow up EGD and COLO. CC: She states that she is not having any concerns at this time. Allergies tree nut [TREE NUT] Allergy (Intermediate, Unverified 12/21/22 12:44) MOUTH TINGLING atorvastatin [Lipitor] Allergy (Unknown, Verified 12/21/22 12:44) Unknown ENVIRONMENTAL Allergy (Intermediate, Uncoded 12/21/22 12:44) NASAL CONGESTION HPI HPI Comments History of Present Illness Details 67 y.o F with PMH of lung ca s/p resecti on (did not need chemo/radiation), non-TB mycobactrium lung infection (was to start treatment but lost to follow up with her ID physician), COPD and active tobacco use, HLD who was referred to us for unintentional weight loss of > 10 lbs in 6 months. Pt reports loss of appetite and feeling of unwellness x 3-4 months which is also associated with LLQ pain. Also sustained a bad fall in May which she describes as a mechanical fall which led to an L3 fracture (sees a physician out of [place]) and the lower back pain has further affected her appetite and nausea. Estimates 12 lbs weight loss in the past 4 months. No fevers, night sweats. Has cough which is chronic owing to COPD and has not worsened per her subjective assessment. LLQ pain is crampy and longstanding in nature. From review of previous notes, has seen Dr Lucas in the past for the same and underwent colo as well in 2019 for this. Does not report any change in bowel habits with this pain. Sometimes notes blood on wiping. Fam hx + for CRC in nephew. Of note - had imaging done at [facility] after the fall in May that showed L3 fracture, as well as irregular pulm nodule 1.3 cm. Pt reports that this nodule h as been tested in the past and reportedly benign. She also has reported hx of NTM and was Rxed treatment for this but lost to follow up with her ID physician as above. Last EGD/colo Oct 2018 (Dr Lucas): Normal EGD. Sigmoid diverticulosis. Melanosis coli. x4 tubular adenoma in transverse colon. 12/10/22: EGD/colo 1. Grade C esophagitis 2. Gastritis (biopsy) 3. Normal duodenum (biopsy) 4. Normal colon and terminal ileum mucos a (biopsy) 5. Total of 7 polyps removed 6. External and internal hemorrhoids 7. Diverticulosis A. Duodenum, biopsy: Duodenal mucosa with foveolar metaplasia; preserved villous architecture and no increased intraepithelial lymphocytes. B. Stomach, random, biopsy: Gastric antral and body mucosa within normal limits; negative for Helicobacter pylori, intestinal metaplasia and dysplasia. C. Colon, right side, biopsy: Colonic mucosa within normal limits; negative for active, chronic or microscopic colitis. D. Colon, ascending, polypectomy x2: Tubular adenoma (2); negative for high- grade dysplasia. E. Colon, transverse, polypectomy x2: Tubular adenoma (2); negative for high- grade dysplasia. F. Colon, descending, polypectomy x2: Tubular adenoma (2); negative for high- grade dysplasia. G. Colon, left side, biopsy: Colonic mucosa within normal limits; negative for active, chronic or microscopic colitis. H. Colon, sigmoid, polypectomy: Tubular adenoma; negative for high-grade dysplasia 12/21/22: Here for post EGD/colo follow up. Findings reviewed including esophagitis and 7 tubular adenomas. Pt just started her PPI last weekend. Cont to report burning retrosternal pain with nausea. Weight curve stable though. Cont to smoke 4-5cigs/day. Still has not connected with ID for [facility]. [facility] Medical History Hyperlipidemia associated with type 2 diabetes mellitus Non-tuberculous mycobacterial pneumonia Lung cancer COPD (chronic obstructive pulmonary disease) Surgical History Hx of colonoscopy History of esophagogastroduodenoscopy (EGD) History of pneumonectomy Social History Household Members: Family Housing: House Do you presently have visiting nurse or other home services: No Alcohol intake: current Alcohol intake frequency: a few times a week Alcohol type: hard liquor Patient Tobacco Use Status: Current everyday Tobacco user Tobacco use type: Cigarette e-Cigarette/Vaping Use: Never Used service: No Review of Systems Const All systems reviewed & are unremarkable except as noted in HPI and below Physical Exam Vital Signs: Last Vital Signs Pulse 99 12/21/22 12:46 BP 118/62 12/21/22 12:46 BMI result Body Mass Index 20.2 Gen appear: NAD HEENT: nonicteric, no cervical lymphadenopathy Chest: CTA CVS: Regular S1/S2 Abd: soft, nontender, nondistended, bowel sounds + Ext: no peripheral edema Neuro: A/Ox3, noted to move all extremities spontaneously Psych: interacting appropriately Assessment & Plan Assessment & Plan (1) Esophagitis: Code(s): K20.90 - Esophagitis, unspecified without bleeding (2) Abdominal pain: Code(s): R10.9 - Unspecified abdominal pain (3) Personal history of colonic polyps: Code(s): Z86.010 - Personal history of colonic polyps Plan 1. Grade C esophagitis Likely 2/2 erosive esophagitis. Started omeprazole 20 BID to eb continued x 8 weeks and then once daily indefinitely. Pt will also be booked for a repeat EGD in 8-12 weeks after to ensure healing. Counseled on smoking cessation again 2. Polyps: Had 7 tubular adenomas on most recent colo. Repeat recommended in 3 years. Reminder set and bulletin board updated. Pt was also reminded to establish care with ID for MAC. Follow up after EGD Coding Level of Care Code Est Pt Level 4 (19987) Diagnoses Esophagitis K20.90 Abdominal pain R10.9 Personal history of colonic polyps Z86.010
[2022-12-21 12:46] VITALS: BP 118/62; PULSE 99; BMI 20.2
== END 2022-12-21 13:40 | disposition home or self-care (01) ==
PROVIDERS: PCP Family Medicine; Visit Provider Internal Medicine
DX: K20.90 Esophagitis, unspecified without bleeding (principal); R10.9 Unspecified abdominal pain; Z86.010 Personal history of colon polyps
CPT/HCPCS: 99214

== ENCOUNTER → 2022-12-21 12:41 | Outpatient (BNVA) | payer MEDICARE, SELFPAY | PROVIDERS: PCP Family Medicine; Visit Provider Internal Medicine | DX: K20.90 Esophagitis, unspecified without bleeding (principal); R10.9 Unspecified abdominal pain; Z86.010 Personal history of colon polyps | CPT/HCPCS: 99212 ==

== ENCOUNTER 2023-03-30 10:28 | Day surgery (SDC) | payer MEDICARE, SELFPAY ==
[2023-03-24 14:28] VITALS: BMI 20.1
[2023-03-30 11:20] VITALS: BMI 21.4
[2023-03-30 11:41] VITALS: BP 125/64; PULSE 76; RESP 18; TEMP 36.7; O2SAT 99
--- NOTE | 2023-03-30 11:53 | P.CONAN_ITS ---
[facility] Active Problems Active Problems: All Active Problems (Updated 03/24/23 @ 14:27 by Felicitas Venegas RN) Personal history of colonic polyps (Acute) Esophagitis (Acute) Arthritis of left knee (Acute) Left knee pain (Acute) Lung nodule seen on imaging study (Acute) Unintentional weight loss (Acute) Abdominal pain (Acute) Lung cancer (Acute) Non-tuberculous mycobacterial pneumonia (Acute) Past Medical History Medical History Hyperlipidemia Non-tuberculous mycobacterial pneumonia Lung cancer COPD (chronic obstructive pulmonary disease) Family History Family history of problems with anesthesia: No Surgical History Surgical History Hx of nasal septoplasty Hx of colonoscopy History of esophagogastroduodenoscopy (EGD) History of pneumonectomy History of Problems with Anesthesia: No Social History Social History Household Members: Family Housing: House Do you presently have visiting nurse or other home services: No Alcohol intake: current Alcohol intake frequency: a few times a week Alcohol type: hard liquor Patient Tobacco Use Status: Current everyday Tobacco user Tobacco use type: Cigarette Smoked in Last 30 Days: Yes e-Cigarette/Vaping Use: Never Used Patient Interested in Nicotine Replacement: No Are you DNR?: No Advance Directives: No Advance Directives Information Provided: Yes Nutrition Risks: No Nutritional Risk service: No Meds Allergies Allergy/AdvReac Type Severity Reaction Status Date / Time tree nut [TREE NUT] Allergy Intermediate MOUTH Verified 03/30/23 11:23 TINGLING atorvastatin [Lipitor] Allergy Unknown Unknown Verified 03/30/23 11:23 ENVIRONMENTAL Allergy Intermediate NASAL Uncoded 03/30/23 11:23 CONGESTION Active Medications: Current Medications Ondansetron HCl (Ondansetron Hcl 4 Mg/2 Ml Vial) 4 mg IVPUSH ONCE PRN PRN Reason: Nausea and Vomiting Home Medications Medication Instructions Recorded Confirmed Last Taken Type albuterol sulfate 90 mcg/actuation 2 puff inhalation QID PRN Wheezing 01/12/22 03/24/23 Unknown History aerosol inhaler cyanocobalamin (vitamin B-12) 1,000 mcg PO DAILY 01/12/22 03/24/23 Unknown History 1,000 mcg tablet fluticasone furoate 200 1 puff inhalation DAILY 01/12/22 03/24/23 Unknown History mcg-vilanterol 25 mcg/dose inhalation powder (Breo Ellipta) rosuvastatin 5 mg tablet 1 tab PO MOTH 01/12/22 03/24/23 Unknown History tiotropium bromide 18 mcg capsule 1 cap inhalation DAILY 01/12/22 03/24/23 Unknown History with inhalation device (Spiriva with HandiHaler) Exam Height,Weight and Vital Signs: Height 5 ft 2 in Weight 53.07 kg Last Vital Signs Temp 98.1 F 03/30/23 11:41 Pulse 76 03/30/23 11:41 Resp 18 03/30/23 11:41 BP 125/64 03/30/23 11:41 Pulse Ox 99 03/30/23 11:41 O2 Del Method Room Air 03/30/23 11:41 Airway Mallampati Class: I TM Dist: >3cm Neck ROM: Full Loose/Missing/Broken Teeth: No Heart: rrr Lungs: clear Assessment and Plan Final Anesthetic Review Family History of Problems with Anesthesia: No History of Problems with Anesthesia: No NPO: Yes ASA Class: III Final Preanesthetic Review: No Changes in Pt Med Stat, Meds/Allgs Chart Reviewed, Consent Obtained/Reviewed and Anes Risks/Benef Reviewed Patient Risk: Intermediate Procedure Risk: Low Anesthetic Plan Anesthetic Plan: MAC: Disposition: Standard PACU
--- NOTE | 2023-03-30 13:19 | P.OP_ITS ---
Operative Note Operative Note Date of Service: 03/30/23 Narrative: Procedure:?Esophagogastroduodenoscopy Endoscopist:?Nabila Wilkins MD Indication:?Esophagitis Anesthesia Provider:?Dr Oseas Britt Anesthesia Type:?MAC Instrument:?Olympus [id number]-[id number] EGD Procedure:?? The procedure, indications, preparation and potential complications were reviewed with the patient who indicated understanding and gave written informed consent to proceed. A physical exam was performed. The endoscope was introduced through the mouth, and advanced to the second part of duodenum. The mucosa was carefully examined on slow withdrawal of the endoscope. There were no immediate complications. Patient tolerated the procedure well. EGD Findings:? * Esophagus:? Normal esophageal mucosa was noted throughout the esophagus. The Z-line was at 36 cm. There was a moderate sized hiatal hernia with the diaphragmatic pinch at 40 cm. * Stomach:? Normal gastric mucosa. Retroflexion in the cardia showed Hill grade III hiatal hernia. * Duodenum:? Normal duodenal mucosa noted to the extent examined. Additional intervention: A soft tipped Savary wire was introduced through the biopsy channel of the gastroscope and advanced to the antrum. Gastroscope was withdrawn. Savary Heidi bougie was advanced over the guidewire and the esophagus was incrementally dilated from 18 mm to 19 mm. The wire was then removed. The gastroscope was reintroduced and showed a small superficial tear at 17 cm indicating successful dilation of UES stenosis. Impression: 1. Resolution of esophagitis 2. UES stenosis (dilation) 3. Normal gastric mucosa 4. Normal duodenum Recommendations:?? * If patient reports resolution of intermittent globus sensation, dilation can be repeated as needed * Continue omeprazole 10 mg once daily indefinitely due to endoscopically proven GERD with esophagitis * Smoking cessation was again reinforced * Avoid NSAIDs
[2023-03-30 13:25] VITALS: BP 86/47; PULSE 72; RESP 19; TEMP 36.5; O2SAT 99
[2023-03-30] MEDS: Mag&Al/Sim/Diphenhyd/Lidocaine 10 ML ORAL.SUSP PO (13:36)
[2023-03-30 13:40] VITALS: BP 107/62; PULSE 73; RESP 18; O2SAT 97
[2023-03-30 13:54] VITALS: BP 131/68; PULSE 72; RESP 20; TEMP 37.1; O2SAT 97
== END 2023-03-30 14:29 | disposition home or self-care (01) ==
PROVIDERS: PCP Family Medicine; Visit Provider Internal Medicine
PROC: 0DJ08ZZ Inspection of Upper Intestinal Tract, Via Natural or Artificial Opening Endoscopic (ICD-10-PCS; CPT 43235; principal; 2023-03-30 11:50)
DX: K20.90 Esophagitis, unspecified without bleeding (principal); K44.9 Diaphragmatic hernia without obstruction or gangrene; Z85.118 Personal history of other malignant neoplasm of bronchus and lung; J44.9 Chronic obstructive pulmonary disease, unspecified; A31.9 Mycobacterial infection, unspecified; E78.5 Hyperlipidemia, unspecified; E11.9 Type 2 diabetes mellitus without complications; Z79.51 Long term (current) use of inhaled steroids; Z79.899 Other long term (current) drug therapy; Z88.8 Allergy status to other drugs, medicaments and biological substances; F17.210 Nicotine dependence, cigarettes, uncomplicated
CPT/HCPCS: 43248; C1769; J2704

== ENCOUNTER → 2023-03-30 10:28 | Outpatient (BNV) | payer MEDICARE, SELFPAY | PROVIDERS: PCP Family Medicine; Visit Provider Internal Medicine | DX: K20.90 Esophagitis, unspecified without bleeding (principal); K44.9 Diaphragmatic hernia without obstruction or gangrene | CPT/HCPCS: 43248 ==

== ENCOUNTER 2023-04-23 14:31 | Outpatient (AMB) | payer MEDICARE, SELFPAY ==
--- NOTE | 2023-04-23 14:51 | A.OFFVIS_ITS ---
Intake Vital Signs 04/23/23 14:53 Height 5 ft 2 in Weight 119 lb 0.794 oz BMI 21.8 BP 131/74 Blood Pressure Location Lt brachial Position Sitting Pulse 81 Pulse Oximetry (%) 99 Intake Visit Reasons: f/u egd Intake Note: Deb presents in the office as a follow up EGD. CC: She states she felt she has a little infection after the EGD. Allergies tree nut [TREE NUT] Allergy (Intermediate, Verified 04/23/23 14:53) MOUTH TINGLING atorvastatin [Lipitor] Allergy (Unknown, Verified 04/23/23 14:53) Unknown ENVIRONMENTAL Allergy (Intermediate, Uncoded 04/23/23 14:53) NASAL CONGESTION HPI HPI Comments History of Present Illness Details 67 y.o F with PMH of lung ca s/p resecti on (did not need chemo/radiation), non-TB mycobactrium lung infection (was to start treatment but lost to follow up with her ID physician), COPD and active tobacco use, HLD who was referred to us for unintentional weight loss of > 10 lbs in 6 months. Pt reports loss of appetite and feeling of unwellness x 3-4 months which is also associated with LLQ pain. Also sustained a bad fall in May which she describes as a mechanical fall which led to an L3 fracture (sees a physician out of [place]) and the lower back pain has further affected her appetite and nausea. Estimates 12 lbs weight loss in the past 4 months. No fevers, night sweats. Has cough which is chronic owing to COPD and has not worsened per her subjective assessment. LLQ pain is crampy and longstanding in nature. From review of previous notes, has seen Dr Lucas in the past for the same and underwent colo as well in 2019 for this. Does not report any change in bowel habits with this pain. Sometimes notes blood on wiping. Fam hx + for CRC in nephew. Of note - had imaging done at [facility] [place] [facility] after the fall in May that showed L3 fracture, as well as irregular pulm nodule 1.3 cm. Pt reports that this nodule has been tested in the past and reportedly benign. She also has reported hx of NTM and was Rxed treatment for this but lost to follow up with her ID physician as above. Last EGD/colo Oct 2018 (Dr Lucas): Normal EGD. Sigmoid diverticulosis. Melanosis coli. x4 tubular adenoma in transverse colon. 12/10/22: EGD/colo 1. Grade C esophagitis 2. Gastritis (biopsy) 3. Normal duodenum (biopsy) 4. Normal colon and terminal ileum mucos a (biopsy) 5. Total of 7 polyps removed 6. External and internal hemorrhoids 7. Diverticulosis A. Duodenum, biopsy: Duodenal mucosa with foveolar metaplasia; preserved villous architecture and no increased intraepithelial lymphocytes. B. Stomach, random, biopsy: Gastric antral and body mucosa within normal limits; negative for Helicobacter pylori, intestinal metaplasia and dysplasia. C. Colon, right side, biopsy: Colonic mucosa within normal limits; negative for active, chronic or microscopic colitis. D. Colon, ascending, polypectomy x2: Tubular adenoma (2); negative for high- grade dysplasia. E. Colon, transverse, polypectomy x2: Tubular adenoma (2); negative for high- grade dysplasia. F. Colon, descending, polypectomy x2: Tubular adenoma (2); negative for high- grade dysplasia. G. Colon, left side, biopsy: Colonic mucosa within normal limits; negative for active, chronic or microscopic colitis. H. Colon, sigmoid, polypectomy: Tubular adenoma; negative for high-grade dysplasia 12/21/22: Here for post EGD/colo follow up. Findings reviewed including esophagitis and 7 tubular adenomas. Pt just started her PPI last weekend. Cont to report burning retrosternal pain with nausea. Weight curve stable though. Cont to smoke 4-5cigs/day. Still has not connected with ID for [employer]. 03/30/23: EGD: 1. Resolution of esophagitis 2. UES stenosis (dilation) 3. Normal gastric mucosa 4. Normal duodenum 04/23/23: Reports some throat soreness and hoarseness of voice after EGD that lasted for a day or two. Otherwise swallowing is better. No other GI complaints. Cont to smoke. [facility] Medical History Hyperlipidemia Non-tuberculous mycobacterial pneumonia Lung cancer COPD (chronic obstructive pulmonary disease) Surgical History Hx of nasal septoplasty Hx of colonoscopy History of esophagogastroduodenoscopy (EGD) History of pneumonectomy Social History Household Members: Family Housing: House Do you presently have visiting nurse or other home services: No Alcohol intake: current Alcohol intake frequency: a few times a week Alcohol type: hard liquor Patient Tobacco Use Status: Current everyday Tobacco user Tobacco use type: Cigarette e-Cigarette/Vaping Use: Never Used service: No Review of Systems Const All systems reviewed & are unremarkable except as noted in HPI and below Physical Exam Vital Signs: Last Vital Signs Pulse 81 04/23/23 14:53 BP 131/74 04/23/23 14:53 Pulse Ox 99 04/23/23 14:53 BMI result Body Mass Index 21.8 Gen appear: NAD HEENT: nonicteric, no cervical lymphadenopathy Chest: CTA CVS: Regular S1/S2 Abd: soft, nontender, nondistended, bowel sounds + Ext: no peripheral edema Neuro: A/Ox3, noted to move all extremities spontaneously Psych: interacting appropriately Assessment & Plan Assessment & Plan (1) Esophagitis: Code(s): K20.90 - Esophagitis, unspecified without bleeding (2) Personal history of colonic polyps: Code(s): Z86.010 - Personal history of colonic polyps (3) Dysphagia: Code(s): R13.10 - Dysphagia, unspecified Plan 1. Grade C esophagitis - resolved. Will need to cont omeprazole 20 once daily indefinitely. Risk factors include ongoing smoking as well as hiatal hernia noted on EGD. Plan: - Omeprazole 20 once daily - Barium esophagogram ordered to eval - Smoking cessation 2. Polyps: Had 7 tubular adenomas on most recent colo. Repeat recommended in 3 years i.e due in 2025. Reminder set and bulletin board updated. Follow up 3 months Orders: Orders FL barium swallow 04/23/23 K20.90 - Esophagitis, unspecified without bleeding Coding Level of Care Code Est Pt Level 4 (44078) Diagnoses Esophagitis K20.90 Personal history of colonic polyps Z86.010 Dysphagia R13.10
[2023-04-23 14:53] VITALS: BP 131/74; PULSE 81; O2SAT 99; BMI 21.8
== END 2023-04-23 15:20 | disposition home or self-care (01) ==
PROVIDERS: PCP Family Medicine; Visit Provider Internal Medicine
DX: K20.90 Esophagitis, unspecified without bleeding (principal); Z86.010 Personal history of colon polyps; R13.10 Dysphagia, unspecified
CPT/HCPCS: 99214

== ENCOUNTER → 2023-04-23 14:31 | Outpatient (BNVA) | payer MEDICARE, SELFPAY | PROVIDERS: PCP Family Medicine; Visit Provider Internal Medicine | DX: K20.90 Esophagitis, unspecified without bleeding (principal); R13.10 Dysphagia, unspecified; Z86.010 Personal history of colon polyps | CPT/HCPCS: 99212 ==

== ENCOUNTER 2023-06-22 09:21 | Outpatient (REF) | payer MEDICARE, SELFPAY ==
--- NOTE | ~2023-06-22 | FL_ITS ---
EXAMINATION: XR FLUOROSCOPY UPPER GI WITH AIR CLINICAL INFORMATION: Dysphagia. Esophagitis COMPARISON: Barium swallow 2017 TECHNIQUE: Fluoroscopic air contrast upper GI examination was performed utilizing standard techniques with thin and thick barium and effervescent granules. Numerous spot images were obtained. FINDINGS: Lateral cine images of the oropharynx and hypopharynx demonstrate normal swallow mechanism with normal epiglottic inversion and soft palate elevation. No tracheal penetration, glottic or subglottic aspiration identified. No nasopharyngeal reflux present. Hypopharyngeal structures appear normal without evidence of mass or diverticulum. There was no significant cricopharyngeal achalasia. Dual and single contrast images of the esophagus demonstrate a normal caliber and contour. There is a granular appearance to the esophageal mucosa. No evidence of stricture, mass, or ulcerations identified. There is to and fro motion of the barium column with associated nonpropulsive tertiary contractions. No evidence of hiatus hernia identified. No significant gastroesophageal reflux was seen during the course of the examination and on reflux views. Dual contrast and single contrast images of the stomach demonstrated a normal contour. Evaluation of the gastric mucosa is limited due to lack of distention of the stomach from poor tolerance of the effervescent granules. The gastric rugal folds have a thickened appearance, which may represent gastritis, however, may also be due to underdistention of the stomach. No obvious masses or ulcerations are seen. Contrast freely passed into the gastric antrum and duodenal bulb without delay. Single and air-contrast images of the duodenal bulb demonstrate no abnormality. The duodenal sweep has a normal appearance, course, and mucosal fold appearance. The imaged proximal jejunum has a normal fold pattern and caliber. FLUOROSCOPY TIME: 4 minutes 53 seconds Number of Spot Images: 13 Number of Cine: 15 DOSE AREA PRODUCT: [id number] uGy-m2 (microgray-meter squared) FL/FL barium swallow IMPRESSION: 1. Granular appearance of the esophageal mucosa which may represent erosive esophagitis. No large ulcerations are seen. 2. Esophageal dysmotility 3. Limited evaluation of the gastric mucosa due to underdistention of the stomach from poor tolerance of the effervescent granules. The gastric rugal folds have a thickened appearance which may represent gastritis, however, this may also be due to underdistention of the stomach. This procedure was performed by Stuart Kay PA-C, and supervised by Dr. Ambriz
== END 2023-06-22 09:22 | disposition home or self-care (01) ==
LOC: HO.XRAY 09:21
PROVIDERS: PCP Family Medicine; Visit Provider Internal Medicine
DX: K20.90 Esophagitis, unspecified without bleeding (principal)
CPT/HCPCS: 74220

== ENCOUNTER → 2023-06-22 09:23 | Outpatient (BNV) | payer MEDICARE, SELFPAY | PROVIDERS: PCP Family Medicine; Visit Provider Physician Assistant Surgical | DX: K20.90 Esophagitis, unspecified without bleeding (principal); R13.10 Dysphagia, unspecified | CPT/HCPCS: 74246 ==

== ENCOUNTER 2023-09-07 10:39 | Emergency (ER) | payer MEDICARE, SELFPAY ==
--- NOTE | ~2023-09-07 | XR_ITS ---
EXAMINATION: XR CHEST CLINICAL INFORMATION: Shortness of breath, chest pain left side. COMPARISON: CT chest 06/02/2022, chest x-ray 01/12/2022. TECHNIQUE: 2 views of the chest were obtained. FINDINGS: Lungs are well-inflated. Redemonstration of biapical chronic changes and left apical postsurgical change. Heart size is normal. Degenerative changes in the thoracic spine. Trace blunting of the posterior sulcus may represent a trace pleural effusion. No new focal consolidation to suggest pneumonia. Possible 6 mm right upper lobe pulmonary nodule overlies the posterior aspect of the right sixth rib, not appreciated on the prior chest radiograph. This may possibly correlate with the nodule seen on CT chest and management of pulmonary nodules should be based on clinical evaluation and chest CT recommendations. XR/XR chest 2V IMPRESSION: Possible 6 mm right upper lobe pulmonary nodule overlies the posterior aspect of the right sixth rib, not appreciated on the prior chest radiograph. This may possibly correlate with the nodule seen on CT chest and management of pulmonary nodules should be based on clinical evaluation chest CT recommendations. Trace blunting of the posterior sulcus may represent a trace pleural effusion. This study was presented today September 07, 2023 for interpretation. Stat results provided at this time as requested by referring provider.
--- NOTE | ~2023-09-07 | CT_ITS ---
EXAMINATION: CT ANGIOGRAM OF THE CHEST WITH AND WITHOUT CONTRAST (CT PULMONARY ANGIOGRAM FOR PE) CLINICAL INFORMATION: Reason for Exam SOB, L pain, hx L lung CA, R 6mm nodule COMPARISON: CT chest 06/02/2022 TECHNIQUE: Prior to contrast administration, noncontrast localization images were obtained. Subsequently, multidetector volumetric imaging was performed from the thoracic inlet to below the diaphragms following the administration of 65 mL Omnipaque 350 intravenous contrast. No contrast reaction reported Sagittal, coronal, and MIP oblique sagittal reformatted images were obtained on the CT workstation, uploaded to PACS, and reviewed. This CT examination was performed using dose optimization techniques as appropriate, variously including the following: *Automated exposure control *Adjustment of mA and/or kV according to patient size (this includes techniques or standardized protocols for targeted exams where dose is matched to indication/reason for exam; i.e. extremities or head) *Use of iterative reconstruction technique Total exam dose-length product 228 mGy-cm FINDINGS: QUALITY OF STUDY/CONTRAST BOLUS: Satisfactory. PULMONARY ARTERIES: No pulmonary emboli. THORACIC AORTA: No aneurysm. LUNG: Severe emphysematous changes. New left upper lobe solid pulmonary nodule measuring 8 mm (4:19). Unchanged 7 mm nodule in the right upper lobe (4:18). There is a 4 mm subpleural nodule in the anterior right upper lobe is new (4:14). Unchanged apical scarring. PLEURA: No pleural effusion or pneumothorax. MEDIASTINUM: Normal heart size. No pericardial effusion. No hilar or mediastinal lymphadenopathy. No evidence of septal bowing or right heart strain. CORONARY ARTERY CALCIFICATION: Severe CHEST WALL/AXILLA: No axillary or internal mammary lymphadenopathy. OSSEOUS STRUCTURES: No acute or suspicious osseous abnormality. UPPER ABDOMEN: Unremarkable. No reflux of contrast into the hepatic veins to suggest elevated right heart pressures. CT/CT angio chest PE protocol IMPRESSION: 1. No acute pulmonary embolus. 2. Multiple new pulmonary nodules measuring 8 mm in the left upper lobe and 4 mm in the right upper lobe. According to the UPDATED 2017 Fleischner Society recommendations, the advised follow-up imaging for multiple solid nodules measuring up to 6-8 mm is follow-up CT at 3 to 6 months. In high-risk patients, subsequent CT follow-up at 18 to 24 months is recommended. In low-risk patients, subsequent CT follow-up at 18 to 24 months is optional. VTE: negative
[2023-09-07 10:57] VITALS: BP 139/66; PULSE 76; RESP 16; TEMP 36.6; O2SAT 98; BMI 21.5
--- NOTE | 2023-09-07 11:02 | ED_ITS ---
HPI - SOB/Dyspnea General Chief Complaint: Dyspnea Stated Complaint: SOB, pain L side Time Seen by Provider: 09/07/23 16:06 Source: patient and family Mode of arrival: ambulatory Limitations: no limitations History of Present Illness ED Provider: Dr. Isabel Todd HPI Narrative: Patient comes to the emergency room complaining of mild shortness of breath and pain on the left side of the chest with deep inspiration. Patient states that about 2-3 years ago she had lung cancer on the left with resection. She has been doing well but over the last couple of days, she has been having that sharp pain only with deep inspirations. Patient states that she also has COPD, still smokes, to the in the morning she was trying to use her inhalers as prescribed. However, taking deep inspirations was too painful. Patient denies any fever or chills, no shortness of breath at this time, no chest pain. Denies any sick contacts. Related Data Home Medications ?Medication ?Instructions ?Recorded ?Confirmed albuterol sulfate 90 mcg/actuation 2 puff inhalation QID PRN Wheezing 01/12/22 03/24/23 aerosol inhaler cyanocobalamin (vitamin B-12) 1,000 mcg PO DAILY 01/12/22 03/24/23 1,000 mcg tablet fluticasone furoate 200 1 puff inhalation DAILY 01/12/22 03/24/23 mcg-vilanterol 25 mcg/dose inhalation powder (Breo Ellipta) rosuvastatin 5 mg tablet 1 tab PO MOTH 01/12/22 03/24/23 tiotropium bromide 18 mcg capsule 1 cap inhalation DAILY 01/12/22 03/24/23 with inhalation device (Spiriva with HandiHaler) Previous Rx's ?Medication ?Instructions ?Recorded Magic Mouthwash 10 ml PO TID PRN Throat discomfort 03/30/23 Diphen/Lido/Antacid 1:1:1 240 mL 2 days #120 mL suspension esomeprazole magnesium 20 mg 20 mg PO DAILY #90 caps 03/30/23 capsule,delayed release Allergies Allergy/AdvReac Type Severity Reaction Status Date / Time tree nut [TREE NUT] Allergy Intermediate MOUTH Verified 09/07/23 11:04 TINGLING atorvastatin [Lipitor] Allergy Unknown Unknown Verified 09/07/23 11:04 ENVIRONMENTAL Allergy Intermediate NASAL Uncoded 04/23/23 14:53 CONGESTION Review of Systems 2 Review of Systems: Constitutional : No Weight loss, No Fever, No Chills, No Night Sweats, No Fatigue, No Malaise ENT/Mouth : No Hearing loss, No Ear Pain, No Nasal Congestion, No Sinus Pain, No Hoarseness, No sore throat, No Rhinorrhea, No Swallowing Difficulty Eyes: No Eye Pain, No Swelling, No Redness, No Foreign Body, No Discharge, No Vision Changes Cardiovascular : Complaining of sharp chest pain with deep inspirations only, No SOB, No worsening of Dyspnea on Exertion, No Orthopnea, No Edema, No Palpitations Respiratory : No Cough, No Sputum, No Wheezing, complaining of feeling a bit short of breath, not able to get enough oxygen Gastrointestinal : No Nausea, No Vomiting, No Diarrhea, No Constipation, No abdominal Pain, No Hematochezia, No Melena Genitourinary : no irregular bleeding, No Dysuria, No Urinary Frequency, No Hematuria, No Urinary Incontinence, No Urgency, No Flank Pain, No Urinary Flow Changes, No Hesitancy Musculoskeletal : No joint pain, No Myalgias, No Joint Swelling Skin : No Skin Lesions, No rash Neuro : No Weakness, No Numbness, No Paresthesias, No Loss of Consciousness, No Dizziness, No Headache Psych : No Anxiety/Panic, No Depression, No SI/HI/AH/VH, No Social Issues, Heme/Lymph: No Bruising, No Bleeding,No Lymphadenopathy Endocrine : No Polyuria, No Polydipsia, No Temperature Intolerance PMFSH Past Medical History Medical History Hyperlipidemia Non-tuberculous mycobacterial pneumonia Lung cancer COPD (chronic obstructive pulmonary disease) Surgical History Hx of nasal septoplasty Hx of colonoscopy History of esophagogastroduodenoscopy (EGD) History of pneumonectomy Social History Social History Household Members: Family Housing: House Do you presently have visiting nurse or other home services: No Alcohol intake: current Alcohol intake frequency: a few times a week Alcohol type: hard liquor Patient Tobacco Use Status: Current everyday Tobacco user Tobacco use type: Cigarette Smoked in Last 30 Days: Yes e-Cigarette/Vaping Use: Never Used Use of substances other than those prescribed or required for medical reasons: No Advance Directives: No service: No Physical Exam 2 Vital Signs: Vital Signs: Last Vital Signs Temp 98.5 F 09/07/23 18:52 Pulse 70 09/07/23 18:52 Resp 18 09/07/23 18:52 BP 151/85 H 09/07/23 18:52 Pulse Ox 98 09/07/23 18:52 O2 Del Method Room Air 09/07/23 18:52 BMI result Body Mass Index 21.5 Const: Other: Appearance: Alert. Oriented X3. No acute distress. Eyes: Pupils equal, round and reactive to light. ENT: Pharynx normal. Both ears within normal limits, no erythema or signs of otitis Neck: Normal inspection. Neck supple. No lymph nodes noted. No crepitus CVS: Normal heart rate and rhythm. Pulses normal. Normal S1 and S2 Respiratory: No respiratory distress. Because breath sounds on the left. No Wheezing. No rales Abdomen: Soft and nontender. No rigidity. No distention. Skin: Skin warm and dry. Normal skin color. Normal skin turgor. Extremities: No lower extremity edema. No Lacerations. No Rash Neuro: Oriented X 3. No motor deficit. No sensory deficit. Moving all extremities. No slurred speech. CN 2 through 12 grossly intact Psych: calm, cooperative, normal affect Course Course Course Narrative: This is a Rapid Medical Examination (RME) performed by Nasreen Culp PA-C in triage. Full HPI, ROS, assessment and treatment plan per primary provider in the Main ED. 68 yo female with history of COPD, history of lung cancer s/p resection who presents to the ER for evaluation of 3 days of SOB, pain w/ deep inspiration, left sided ear pain and headache. No known sick contacts or fevers. Smart watch read ?afib this morning, which she does not have a history of. VS are stable in triage, RRR. Lungs diminished throughout but no resp distress, no wheezing. speaking in complete sentences. Plan: CXR, EKG, labs, covid swab. stable to go to pending room availability Medical Decision Making Medical Decision Making MDM Narrative: -my interpretation of EKG: My interpretation of EKG: Normal sinus rhythm, heart rate 84, no ST segment with the patient elevation, no T-wave inversion, QTC 415 -my interpretation of labs: Normal hematology and chemistry, normal LFTs, normal BNP and troponin, serology negative for COVID. -my interpretation of chest x-ray, no obvious infiltrate. Per Radiology report, there was a 6 mm right upper lobe pulmonary nodule. -I discussed with the patient that given patient's past medical history , x-ray radiology findings and current symptoms, we should proceed with CT My interpretation of CTA scan of the lungs, no pulmonary embolism -radiology report: Multiple new pulmonary nodules measuring 8 mm in the left upper lobe 4 mm in the right lobe -I discussed the radiology reports with the patient, patient states that she will follow-up with a quantitative software engineer in [place] tomorrow -otherwise, patient feels well, no chest pain or shortness of breath. Differential Diagnosis Differential Diagnoses: The differential diagnosis associated with the presentation includes (Pleurisy, pericardial effusion, PE, malignancy) Admission/Observation Consideration of admission/observation: Escalation of care including admission/observation considered (Given patient's past medical history, symptoms, radiology findings, observation was considered) Lab Data MDM Lab Attestation statement: I reviewed the patient's lab results. 09/07/23 11:13 09/07/23 11:13 Labs: Lab Results 09/07/23 09/07/23 Range/Units 11:13 17:10 WBC 8.2 (4.8-10.8) X10*3/uL RBC 4.42 (4.20-5.50) X10*6/uL Hgb 13.7 (12.0-16.0) g/dl Hct 40.7 (37.0-47.0) % MCV 92.1 (80.0-98.0) fL MCH 31.0 (27.0-33.0) pg MCHC 33.7 (31.0-35.0) g/dl RDW 15.3 (11.0-16.0) % Plt Count 355 (160-400) X10*3/uL MPV 10.4 (9.4-12.3) fL Immature Gran % (Auto) 0.4 (0.0-0.4) % Neut % (Auto) 60.4 (45-73) % Lymph % (Auto) 25.1 (20-40) % [place] % (Auto) 10.9 (2-11) % Eos % (Auto) 2.1 (0-4) % Baso % (Auto) 1.1 (0-2) % Lymph # (Auto) 2.1 (1.2-4.9) X10*3/uL [place] # (Auto) 0.9 (0.1-1.2) X10*3/uL Eos # (Auto) 0.2 (0.0-0.4) X10*3/uL Baso # (Auto) 0.1 (0.0-0.2) X10*3/uL Abs Immat Gran (auto) 0.03 (0.00-0.03) X10*3/uL Absolute Neuts (auto) 4.9 (2.0-8.3) x10*3/uL Absolute Nucleated RBC 0.000 (0.0-0.012) X10*3/uL Nucleated RBC % (auto) 0.0 (0.0-0.2) /100WBC Sodium 141 (135-145) mmol/L Potassium 4.0 (3.3-5.1) mmol/L Chloride 106 (96-108) mmol/L Carbon Dioxide 27 (22-29) mmol/L Anion Gap 12 (12-20) BUN 11 (9-16) mg/dL Creatinine 0.71 (0.5-1.4) mg/dL Estim Creat Clear Calc 56.4 Estimated GFR > 60 Random Glucose 92 (60-115) mg/dL Calcium 9.7 (8.4-10.2) mg/dL Magnesium 2.2 (1.6-2.6) mg/dL Total Bilirubin 0.5 (0.0-1.0) mg/dL Direct Bilirubin 0.2 (0.0-0.5) mg/dL AST 15 (5-31) U/L ALT < 5 (0-31) U/L Alkaline Phosphatase 42 (39-117) U/L Troponin I High Sens 3.3 (<3.5-17.0) ng/L B-Natriuretic Peptide 16 (<100) pg/mL Total Protein 6.8 (6.5-8.0) g/dL Albumin 4.3 (3.5-5.0) g/dL Urine Color Yellow Urine Appearance Clear Urine pH 6.5 (5.0-9.0) Ur Specific [place] 1.010 (1.005-1.025) Urine Protein Negative (Neg-Trace) mg/dL Urine Glucose (UA) Negative (Negative) mg/dL Urine Ketones Negative (Negative) mg/dL Urine Blood Negative (Negative) Urine Nitrite Negative (Negative) Ur Leukocyte Esterase Trace H (Negative) Urine RBC 0-2 (0-2) /HPF Urine WBC 0-5 (0-5) /HPF Ur Squamous Epith Cells 0-2 (0-2) /HPF Urine Bacteria None Seen (None Seen) Hyaline Casts 0-2 (0-2) /LPF COVID-19 (SHRAVAN) Negative (Negative) COVID-19 Clin Com See Note Independent Interpretation I performed an independent interpretation of an: Plain X-Ray Radiology Impression Discussion of test interpretation with radiology: I have reviewed the radiologist's reading. Radiologist Impression: Lungs are well-inflated. Redemonstration of biapical chronic changes and left apical postsurgical change. Heart size is normal. Degenerative changes in the thoracic spine. Trace blunting of the posterior sulcus may represent a trace pleural effusion. No new focal consolidation to suggest pneumonia. Possible 6 mm right upper lobe pulmonary nodule overlies the posterior aspect of the right sixth rib, not appreciated on the prior chest radiograph. This may possibly correlate with the nodule seen on CT chest and management of pulmonary nodules should be based on clinical evaluation and chest CT recommendations. XR/XR chest 2V IMPRESSION: Possible 6 mm right upper lobe pulmonary nodule overlies the posterior aspect of the right sixth rib, not appreciated on the prior chest radiograph. This may possibly correlate with the nodule seen on CT chest and management of pulmonary nodules should be based on clinical evaluation chest CT recommendations. Trace blunting of the posterior sulcus may represent a trace pleural effusion. Critical Care Time Critical Care Time Critical Care Time: Yes Total Critical Care Time: 60 Attestation: I have personally provided critical care time. Time includes review of lab data, radiology results, discussion with consultants, and monitoring for potential decompensation. Intervention performed as documented. Discharge Plan Discharge Clinical Impression: Acute dyspnea, Multiple pulmonary nodules Patient Disposition: Home, Self-Care Instructions: Dyspnea (ED) Additional Instructions: Please follow-up with your quantitative software engineer tomorrow. Please follow-up with your primary care physician tomorrow. If you have any worsening or new symptoms, please return to the emergency room or call 911 Prescriptions: No Action albuterol sulfate 90 mcg/actuation Hfa Aerosol Inhaler 2 puff INHALATION QID PRN (Reason: Wheezing) rosuvastatin 5 mg tablet 1 tab PO MOTH Rx Instructions: Only takes once daily on wednesday and tiotropium bromide [Spiriva with HandiHaler] 18 mcg capsule, w/inhalation device 1 cap inhalation DAILY fluticasone furoate-vilanterol [Breo Ellipta] 200-25 mcg/dose blister with device 1 puff inhalation DAILY cyanocobalamin (vitamin B-12) 1,000 mcg Tablet 1,000 mcg PO DAILY Magic Mouthwash Diphen/Lido/Antacid 1:1:1 240 mL suspension 10 ml PO TID PRN (Reason: Throat discomfort) 2 Days Qty: 120 0RF Rx Instructions: Gargle and swallow as needed. esomeprazole magnesium 20 mg capsule,delayed release(DR/EC) 20 mg PO DAILY Qty: 90 2RF Print Language: [place]
--- NOTE | 2023-09-07 11:04 | ECG_ITS ---
Test Reason : SOB Blood Pressure : / mmHG Vent. Rate : 074 BPM Atrial Rate : 074 BPM P-R Int : 142 ms QRS Dur : 068 ms QT Int : 374 ms P-R-T Axes : 068 043 040 degrees QTc Int : 415 ms Normal sinus rhythm Normal ECG When compared with ECG of 02-JUN-2022 13:40, No significant change was found Referred By: Libby Culp Electronically Signed By:Peter Valdovinos
[2023-09-07 11:20] LABS: MANUAL DIFF FLAG NO
[2023-09-07 11:22] LABS: Basophils Absolute Auto 0.1 X10*3/uL (0.0-0.2); Basophils Percent Auto 1.1 % (0-2); Eosinophils Absolute Auto 0.2 X10*3/uL (0.0-0.4); Eosinophils Percent Auto 2.1 % (0-4); Hematocrit 40.7 % (37.0-47.0); Hemoglobin 13.7 g/dl (12.0-16.0); Imm Gran Abs Auto 0.03 X10*3/uL (0.00-0.03); Imm Gran Pct Auto 0.4 % (0.0-0.4); Lymphocytes Absolute Auto 2.1 X10*3/uL (1.2-4.9); Lymphocytes Percent Auto 25.1 % (20-40); Mean Corpuscular HGB Conc 33.7 g/dl (31.0-35.0); Mean Corpuscular Volume 92.1 fL (80.0-98.0); Mean Platelet Volume 10.4 fL (9.4-12.3); Monocytes Absolute Auto 0.9 X10*3/uL (0.1-1.2); Monocytes Percent Auto 10.9 % (2-11); Neutrophils Absolute Auto 4.9 x10*3/uL (2.0-8.3); Neutrophils Percent Auto 60.4 % (45-73); Platelet Count 355 X10*3/uL (160-400); Red Blood Count 4.42 X10*6/uL (4.20-5.50); Red Cell Distribution Width 15.3 % (11.0-16.0); White Blood Count 8.2 X10*3/uL (4.8-10.8)
[2023-09-07 11:41] LABS: B Type Natriuretic Peptide 16 pg/mL (<100)
[2023-09-07 11:42] LABS: Troponin-I High Sensitivity 3.3 ng/L (<3.5-17.0)
[2023-09-07 11:43] LABS: Alanine Aminotransferase < 5 U/L (0-31); Albumin Level 4.3 g/dL (3.5-5.0); Alkaline Phosphatase 42 U/L (39-117); Anion Gap 12 (12-20); Aspartate Amino Transferase 15 U/L (5-31); Bilirubin Direct 0.2 mg/dL (0.0-0.5); Bilirubin Total 0.5 mg/dL (0.0-1.0); Blood Urea Nitrogen 11 mg/dL (9-16); Calcium 9.7 mg/dL (8.4-10.2); Carbon Dioxide 27 mmol/L (22-29); Chloride 106 mmol/L (96-108); Creatinine Clr Calc Pharmacy 56.4; Estimated Glomerular Filt Rate > 60; Glucose Random 92 mg/dL (60-115); Magnesium 2.2 mg/dL (1.6-2.6); Sodium 141 mmol/L (135-145); Total Protein 6.8 g/dL (6.5-8.0)
[2023-09-07 11:52] LABS: COVID-19 Test Negative (Negative); IDNOW Serial# 152EDE1D
[2023-09-07 14:52] VITALS: BP 159/74; PULSE 81; RESP 18; TEMP 36.4; O2SAT 99
[2023-09-07 17:20] LABS: Appearance Urine Clear; Color Urine Yellow; Glucose Urine UA Negative (Negative); Leukocyte Esterase Urine Trace (Negative); Nitrite Urine Negative (Negative); PH 6.5 (5.0-9.0); UMIC TRIGGER UACC YES; Urine Blood Negative (Negative); Urine Ketones Negative (Negative); Urine Protein Negative (Neg-Trace)
[2023-09-07 17:26] LABS: Bacteria Urine None Seen (None Seen); Hyaline Casts Urine 0-2 /LPF (0-2); RBC Urine 0-2 /HPF (0-2); Squamous Epithelial Cell Urine 0-2 /HPF (0-2); WBC Urine 0-5 /HPF (0-5)
[2023-09-07 18:52] VITALS: BP 151/85; PULSE 70; RESP 18; TEMP 36.9; O2SAT 98
--- NOTE | 2023-09-07 19:23 | PC.NURSE ---
care assumed of patient at this time; waiting on CT results. pt requesting coffee. explained that provider would like for test results to come back first before drinking. pt verbalized understanding.
--- NOTE | 2023-09-07 20:48 | MHC.EDTECH ---
This tech answered call garcia. Patient expressing frustration to this tech with length of time she has been waiting and wants a cup of coffee. She stated that she would leave if she could not get her results and coffee. This tech relayed conversation to ANGIE Alvarez. Per Antonio, CT results are in but the provider needs to speak with patient before moving forward with any food/drink. This tech relayed to patient what ANGIE Alvarez stated. Patient says she is only waiting for a little longer and then leaving.
[2023-09-07 21:42] VITALS: BP 131/80; PULSE 82; RESP 18; TEMP 36.9; O2SAT 96
== END 2023-09-07 21:43 | disposition home or self-care (01) ==
PROVIDERS: Physician Assistant; Emergency Provider Emergency Medicine; PCP Family Medicine
DX: R06.02 Shortness of breath (principal); R91.8 Other nonspecific abnormal finding of lung field; R07.89 Other chest pain; Z79.899 Other long term (current) drug therapy; Z11.52 Encounter for screening for COVID-19
CPT/HCPCS: 36415; 71046; 71275; 80048; 80076; 81001; 83735; 83880; 84484; 85025; 87635; 93005; 99284

== ENCOUNTER → 2023-09-07 11:04 | Outpatient (BNV) | payer MEDICARE, SELFPAY | PROVIDERS: Emergency Provider Emergency Medicine; PCP Family Medicine; Visit Provider Internal Medicine Cardiovascular Disease | DX: R06.02 Shortness of breath (principal) | CPT/HCPCS: 93010 ==

== ENCOUNTER 2023-11-02 11:14 | Outpatient (AMB) | payer MEDICARE, SELFPAY ==
--- NOTE | 2023-11-02 11:20 | A.OFFVIS_ITS ---
Intake Visit Reasons: OV- Left knee pain Intake Note: Deb is a 68 year old female who presents with complaints of progressively worsening left knee pain. She describes her pain as sharp in nature. Her pain has worse over the last few months in spite of continued non operative treatments. She did have a cortisone injection given into her left knee last year which gave her fairly good relief. She denies any locking or giving way. She continues with her home exercise program. She has taken Tylenol and anti- inflammatory medicines which gave her minimal relief. Allergies tree nut [TREE NUT] Allergy (Intermediate, Verified 11/02/23 11:21) MOUTH TINGLING atorvastatin [Lipitor] Allergy (Unknown, Verified 11/02/23 11:21) Unknown ENVIRONMENTAL Allergy (Intermediate, Uncoded 04/23/23 14:53) NASAL CONGESTION Medication List - Last Reconciled 11/02/23 by Grant Albarado MD albuterol sulfate 90 mcg/actuation 2 puffs inhalation QID PRN cyanocobalamin (vitamin B-12) 1,000 mcg PO DAILY esomeprazole magnesium 20 mg PO DAILY fluticasone furoate-vilanterol 200-25 mcg/dose (Breo Ellipta) 1 puff inhalation DAILY Magic Mouthwash Diphen/Lido/Antacid 1:1:1 10 mL PO TID PRN 2 days rosuvastatin 1 tab PO MOTH tiotropium bromide (Spiriva with HandiHaler) 1 cap inhalation DAILY PFSH Medical History Hyperlipidemia Non-tuberculous mycobacterial pneumonia Lung cancer COPD (chronic obstructive pulmonary disease) Surgical History Hx of nasal septoplasty Hx of colonoscopy History of esophagogastroduodenoscopy (EGD) History of pneumonectomy Social History Household Members: Family Housing: House Do you presently have visiting nurse or other home services: No Alcohol intake: current Alcohol intake frequency: a few times a week Alcohol type: hard liquor Patient Tobacco Use Status: Current everyday Tobacco user Tobacco use type: Cigarette e-Cigarette/Vaping Use: Never Used service: No Physical Exam Const Other: Well-nourished well-developed very friendly female awake alert and oriented x3 in no acute distress Extrem Other: Bilateral lower extremity examination shows good capillary refill, no skin lesions noted, normal sensation light touch Left knee examination shows a minimal effusion, mild crepitus with range of motion, no instability Office Procedures Joint Injection/Aspiration Joint Injection/Aspiration Primary Site: left knee Prep: site was prepped using aseptic technique Injected: 40 mg of, DepoMedrol and 1% plain lidocaine Procedure: The patient tolerated the procedure well Coding - Large joint Procedure code (CPT) selection complete Results Reviewed Results Reviewed: X-rays of the patient's left knee taken previously show joint space narrowing, subchondral sclerosis, no acute bony abnormalities Assessment & Plan Assessment & Plan (1) Arthritis of left knee: Code(s): M17.12 - Unilateral primary osteoarthritis, left knee Category: Medical Plan Ms. Bar presents with left knee pain due to degenerative joint disease. I had a lengthy discussion with the patient regarding the treatment options. The risks and benefits of a left knee cortisone injection were discussed at length patient. The patient wished to proceed. She tolerated the injection well. She will continue with her home exercise program. She will contact me prior to her follow-up appointment in 3 months should any questions or concerns arise. Feel free to call me at any time should questions regarding her orthopedic management arise. I spent 20 minutes in reviewing the patient's records and imaging studies, seeing the patient and documenting in the medical record. Orders: Orders AMB Joint Injection/Aspiration Today M17.12 - Unilateral primary osteoarthritis, left knee Coding Level of Care Code Est Pt Level 3 (06909) Complex EM visit Add On G2211 Diagnoses Arthritis of left knee M17.12 CPT Codes Coding - Large joint: 86063 - Large joint ([id number])
== END 2023-11-02 12:25 | disposition home or self-care (01) ==
PROVIDERS: PCP Family Medicine; Visit Provider Orthopaedic Surgery
DX: M17.12 Unilateral primary osteoarthritis, left knee (principal)
CPT/HCPCS: 20610; 99213

== ENCOUNTER → 2023-11-02 11:14 | Outpatient (BNVA) | payer MEDICARE, SELFPAY | PROVIDERS: PCP Family Medicine; Visit Provider Orthopaedic Surgery | DX: M17.12 Unilateral primary osteoarthritis, left knee (principal) | CPT/HCPCS: 20610; 99212; J1010 ==

== ENCOUNTER 2023-11-16 13:29 | Emergency (ER) | payer MEDICARE, SELFPAY ==
[2023-11-16 14:01] VITALS: BP 134/82; PULSE 98; RESP 18; TEMP 37.1; O2SAT 99; BMI 20.2
--- NOTE | 2023-11-16 14:07 | ED_ITS ---
HPI - General Adult General Chief complaint: Animal Bite Stated complaint: Cat bite Time Seen by Provider: 11/16/23 14:06 History of Present Illness ED Provider: Zack Reyes PA-C HPI narrative: 68-year-old female history of non to be back on Bactrim pneumonia, esophagittis, dysphagia presents to ED for cat bite to right index finger that occurred on Wednesday. Patient states she was feeding her cat but accident her cat bit her. Patient states CT was not foaming or acting really. She states patient's only 6 months overdue for rabies vaccine. She states cat has never been outside the house. patient states no other complaints Related Data Home Medications ?Medication ?Instructions ?Recorded ?Confirmed albuterol sulfate 90 mcg/actuation 2 puff inhalation QID PRN Wheezing 01/12/22 11/02/23 aerosol inhaler cyanocobalamin (vitamin B-12) 1,000 mcg PO DAILY 01/12/22 11/02/23 1,000 mcg tablet fluticasone furoate 200 1 puff inhalation DAILY 01/12/22 11/02/23 mcg-vilanterol 25 mcg/dose inhalation powder (Breo Ellipta) rosuvastatin 5 mg tablet 1 tab PO MOTH 01/12/22 11/02/23 tiotropium bromide 18 mcg capsule 1 cap inhalation DAILY 01/12/22 11/02/23 with inhalation device (Spiriva with HandiHaler) Previous Rx's ?Medication ?Instructions ?Recorded Magic Mouthwash 10 ml PO TID PRN Throat discomfort 03/30/23 Diphen/Lido/Antacid 1:1:1 240 mL 2 days #120 mL suspension esomeprazole magnesium 20 mg 20 mg PO DAILY #90 caps 03/30/23 capsule,delayed release amoxicillin 875 mg-potassium 1 tab PO Q12H 10 days #20 tabs 11/16/23 clavulanate 125 mg tablet Allergies Allergy/AdvReac Type Severity Reaction Status Date / Time tree nut [TREE NUT] Allergy Intermediate MOUTH Verified 11/16/23 14:06 TINGLING atorvastatin [Lipitor] Allergy Unknown Unknown Verified 11/16/23 14:06 ENVIRONMENTAL Allergy Intermediate NASAL Uncoded 11/16/23 14:06 CONGESTION Review of Systems 2 Review of Systems: right index finger cat bite Yes all other systems are reviewed and are negative PMFSH Past Medical History Medical History Hyperlipidemia Non-tuberculous mycobacterial pneumonia Lung cancer COPD (chronic obstructive pulmonary disease) Surgical History Hx of nasal septoplasty Hx of colonoscopy History of esophagogastroduodenoscopy (EGD) History of pneumonectomy Social History Social History Household Members: Family Housing: House Do you presently have visiting nurse or other home services: No Alcohol intake: current Alcohol intake frequency: a few times a week Alcohol type: hard liquor Patient Tobacco Use Status: Current everyday Tobacco user Tobacco use type: Cigarette e-Cigarette/Vaping Use: Never Used Advance Directives: No service: No Physical Exam ED Vital Signs: Vital Signs - 24 hr 11/16/23 14:01 11/16/23 14:54 Temperature 98.7 F 98.7 F Pulse Rate 98 98 Respiratory Rate 18 18 Blood Pressure 134/82 134/82 Pulse Oximetry 99 99 Oxygen Delivery Method Room Air Room Air BMI result Body Mass Index 20.2 Const General: cooperative, healthy appearing, comfortable, no acute distress, well developed, alert and awake Orientation/consciousness: patient oriented x3 HENMT Head: Yes normal to inspection, Yes No palpable skull fracture present, Yes normocephalic and Yes atraumatic Ears: hearing grossly normal bilaterally, external ears normal, TM's normal bilaterally, TM normal on the right, TM normal on the left and EAC's normal Eyes General: appearance normal, both eyes and all related structures Neck Neck: Yes normal visual inspection, Yes full ROM, Yes no lymphadenopathy, Yes no meningeal signs, Yes trachea midline, Yes supple, No anterior neck swelling and No tender Chest Chest palpation & inspection: normal inspection of the chest and normal palpation of entire chest wall Resp Effort & Inspection: normal respiratory effort and able to speak in complete sentences Auscultation: clear to auscultation bilaterally Cardio Jugular venous distension: no JVD Heart sounds: S1 normal heart sound present and S2 normal heart sound present GI Inspection: Yes normal to inspection Palpation (GI): Soft to palpation, not firm, nontender, no guarding and not rigid General: Yes no CVA tenderness Back/Spine/Pelvis Back: no CVA tenderness and No back tenderness Skin General skin exam: no rashes or lesions noted, elasticity normal and turgor normal Neuro General: patient oriented x3, gait normal, tone normal, moves all extremities, Normal light touch and pain sensation, no meningeal signs, no focal motor deficits, CN's II-XI intact bilaterally and normal sensation to monofilament Extrem General: Yes normal to inspection and Yes full ROM Hand/finger images: 2 1. Swelling and slight redness. Negative for stiffness, pus discharge, foul odor, red streaks, Ecchymosiis or signs of tenosynovitis. Rest of extremity normal. Motor/neuro/vascular exam intact of all extremity and fingers. Psych Appearance: grossly normal, well kempt and not disheveled Medications Administered Discontinued Medications Generic Name Dose Route Start Last Admin Trade Name Freq PRN Reason Stop Dose Admin Diphtheria/Tetanus/Acell Pertussis 0.5 ml 11/16/23 14:07 11/16/23 14:42 Diphth,Pertus(Acell),Tet Adult 0.5 Ml Syringe IM 11/16/23 14:08 0.5 ml .ONCE ONE Administration Medical Decision Making Medical Decision Making MDM Narrative: 68-year-old female presents to ED cat bite to right index finger by her cat. Physical exam negative for signs of tenosynovitis, osteomyelitis, abscess, necrotizing fasciitis, lymphangitis or arterial occlusion. Patient refused rabies vaccine and immunoglobulin. Patient states her cat had never been outside and only missed 1 dose of rabies vaccine and scheduled for tomorrow. Patient explained risks of not receiving rabies vaccine. Patient explained to watch her cat for 10 days for signs of rabies or enema control watch her. Patient explained worrisome signs and informed to return to the ED immediately Differential Diagnosis Differential Diagnoses: The differential diagnosis associated with the presentation includes (Cat bite, colitis,) Admission/Observation Consideration of admission/observation: Escalation of care including admission/observation considered Independent Historian Clinical information obtained from an independent historian. History obtained from or confirmed by: Other (Cat bite) External Record Review External record reviewed: Other (prior visits) Prescription Management I considered prescription management with: Antibiotic Discharge Plan Discharge Clinical Impression: Cat bite Patient Disposition: Home, Self-Care Instructions: Animal Bite (ED) Additional Instructions: Return to the ED immediately for any redness, pus discharge, foul odor, bluish black discoloration, inability to move finger, fever, chills, red streaks going up the arm, hand swelling, or any other concerning symptoms. Recommend follow- up with primary care provider. Prescriptions: New amoxicillin-pot clavulanate 875-125 mg tablet 1 tab PO Q12H 10 Days Qty: 20 0RF No Action albuterol sulfate 90 mcg/actuation Hfa Aerosol Inhaler 2 puff INHALATION QID PRN (Reason: Wheezing) rosuvastatin 5 mg tablet 1 tab PO MOTH Rx Instructions: Only takes once daily on wednesday and tiotropium bromide [Spiriva with HandiHaler] 18 mcg capsule, w/inhalation device 1 cap inhalation DAILY fluticasone furoate-vilanterol [Breo Ellipta] 200-25 mcg/dose blister with device 1 puff inhalation DAILY cyanocobalamin (vitamin B-12) 1,000 mcg Tablet 1,000 mcg PO DAILY Magic Mouthwash Diphen/Lido/Antacid 1:1:1 240 mL suspension 10 ml PO TID PRN (Reason: Throat discomfort) 2 Days Qty: 120 0RF Rx Instructions: Gargle and swallow as needed. esomeprazole magnesium 20 mg capsule,delayed release(DR/EC) 20 mg PO DAILY Qty: 90 2RF Interventions: ED Discharge Assessment Last Done: 11/16/23 14:54 Discharge Date/Time: 11/16/23 14:56 Print Language: Salvadorean
[2023-11-16] MEDS: Diphth,Pertus(ACell),Tet Adult 0.5 ML SYRINGE IM (14:42)
[2023-11-16 14:54] VITALS: BP 134/82; PULSE 98; RESP 18; TEMP 37.1; O2SAT 99
== END 2023-11-16 14:56 | disposition home or self-care (01) ==
PROVIDERS: Emergency Provider Emergency Medicine; PCP Family Medicine
DX: S61.250A Open bite of right index finger without damage to nail, initial encounter (principal); W55.01XA Bitten by cat, initial encounter; Y93.9 Activity, unspecified; Y92.9 Unspecified place or not applicable; Y99.8 Other external cause status; Z23 Encounter for immunization; Z79.899 Other long term (current) drug therapy
CPT/HCPCS: 90471; 90715; 99282; 99284

== ENCOUNTER 2024-02-10 12:55 | Outpatient (AMB) | payer MEDICARE, SELFPAY ==
--- NOTE | 2024-02-10 12:56 | MHC.OFFVIS ---
Vital Signs 02/10/24 12:57 Height 5 ft 2 in Weight 110 lb BMI 20.1 Intake Visit Reasons: OV- Left knee pain Intake Note: Deb is a 68 year old female who presents with complaints of progressively worsening left knee pain. She describes her pain as sharp in nature. She has had cortisone injections in the past which gave her fairly good relief. She wishes to hold off on surgery for as long as possible. Allergies tree nut [TREE NUT] Allergy (Intermediate, Verified 02/10/24 12:57) MOUTH TINGLING atorvastatin [Lipitor] Allergy (Unknown, Verified 02/10/24 12:57) Unknown ENVIRONMENTAL Allergy (Intermediate, Uncoded 02/10/24 12:57) NASAL CONGESTION Medication List - Last Reconciled 02/10/24 by [place] Albarado MD albuterol sulfate 90 mcg/actuation 2 puffs inhalation QID PRN cyanocobalamin (vitamin B-12) 1,000 mcg PO DAILY esomeprazole magnesium 20 mg PO DAILY fluticasone furoate-vilanterol 200-25 mcg/dose (Breo Ellipta) 1 puff inhalation DAILY Magic Mouthwash Diphen/Lido/Antacid 1:1:1 10 mL PO TID PRN 2 days rosuvastatin 1 tab PO MOTH tiotropium bromide (Spiriva with HandiHaler) 1 cap inhalation DAILY PFSH Medical History Hyperlipidemia Non-tuberculous mycobacterial pneumonia Lung cancer COPD (chronic obstructive pulmonary disease) Surgical History Hx of nasal septoplasty Hx of colonoscopy History of esophagogastroduodenoscopy (EGD) History of pneumonectomy Social History Household Members: Family Housing: House Do you presently have visiting nurse or other home services: No Alcohol intake: current Alcohol intake frequency: a few times a week Alcohol type: hard liquor Patient Tobacco Use Status: Current everyday Tobacco user Tobacco use type: Cigarette e-Cigarette/Vaping Use: Never Used service: No Physical Exam Vital Signs: BMI result Body Mass Index 20.1 Const Other: Well-nourished well-developed very friendly female awake alert and oriented x3 in no acute distress Extrem Other: Bilateral lower extremity examination shows good capillary refill, no skin lesions noted, normal sensation light touch Left knee examination shows a minimal effusion, palpable crepitus with range of motion, pain with range of motion, no instability Office Procedures AMB Joint Injection/Aspiration Joint Injection/Aspiration Primary Site: left knee Prep: site was prepped using aseptic technique Injected: 40 mg of, DepoMedrol and 1% plain lidocaine Approach Used: anterolateral Procedure: The patient tolerated the procedure well Coding - Large joint Procedure code (CPT) selection complete Results Reviewed Results Reviewed: X-rays of the patient's left knee taken previously show joint space narrowing, subchondral sclerosis, no acute bony abnormalities Assessment & Plan Assessment & Plan (1) Arthritis of left knee: Code(s): M17.12 - Unilateral primary osteoarthritis, left knee Category: Medical Plan Ms. Bar presents with left knee pain due to degenerative joint disease. The risks and benefits of a left knee cortisone injection were discussed at length with the patient. The patient wished to proceed. She tolerated the injection well. She will continue with her home exercise program. She will contact me prior to her follow-up appointment in 3 months should any questions or concerns arise. Feel free to call me at any time should questions regarding her orthopedic management arise. I spent 22 minutes in reviewing the patient's records and imaging studies, seeing the patient and documenting in the medical record. Orders: Orders AMB Joint Injection/Aspiration Today M17.12 - Unilateral primary osteoarthritis, left knee Coding Level of Care Code Est Pt Level 3 (10011) Complex EM visit Add On G2211 Diagnoses Arthritis of left knee M17.12 CPT Codes Coding - Large joint: 08996 - Large joint ([id number])
[2024-02-10 12:57] VITALS: BMI 20.1
== END 2024-02-10 13:20 | disposition home or self-care (01) ==
PROVIDERS: PCP Family Medicine; Visit Provider Orthopaedic Surgery
DX: M17.12 Unilateral primary osteoarthritis, left knee (principal)
CPT/HCPCS: 20610; 99213

== ENCOUNTER → 2024-02-10 12:55 | Outpatient (BNVA) | payer MEDICARE, SELFPAY | PROVIDERS: PCP Family Medicine; Visit Provider Orthopaedic Surgery | DX: M17.12 Unilateral primary osteoarthritis, left knee (principal) | CPT/HCPCS: 20610; 99212; J1010; J2003 ==

== ENCOUNTER 2024-05-17 13:05 | Outpatient (AMB) | payer MEDICARE, SELFPAY ==
[2024-05-17 13:09] VITALS: BMI 20.1
--- NOTE | 2024-05-17 13:09 | A.OFFVIS_ITS ---
Vital Signs 05/17/24 13:09 Height 5 ft 2 in Weight 110 lb BMI 20.1 Intake Visit Reasons: Left knee pain Intake Note: Debbie is a 69 year old female who presents with complaints of progressively worsening left knee pain. She describes her pain as sharp in nature. Her pain has gotten worse over the last few months. She has tried Tylenol and anti- inflammatory medicines which gave her minimal relief. She has had cortisone injections which gave her fairly good relief. She wishes to hold off on surgery if at all possible. Allergies tree nut [TREE NUT] Allergy (Intermediate, Verified 05/17/24 13:10) MOUTH TINGLING atorvastatin [Lipitor] Allergy (Unknown, Verified 05/17/24 13:10) Unknown ENVIRONMENTAL Allergy (Intermediate, Uncoded 05/17/24 13:10) NASAL CONGESTION Medication List - Last Reconciled 05/17/24 by [place] Albarado MD albuterol sulfate 90 mcg/actuation 2 puffs inhalation QID PRN cyanocobalamin (vitamin B-12) 1,000 mcg PO DAILY esomeprazole magnesium 20 mg PO DAILY fluticasone furoate-vilanterol 200-25 mcg/dose (Breo Ellipta) 1 puff inhalation DAILY Magic Mouthwash Diphen/Lido/Antacid 1:1:1 10 mL PO TID PRN 2 days rosuvastatin 1 tab PO MOTH tiotropium bromide (Spiriva with HandiHaler) 1 cap inhalation DAILY ON LICENSE OF [facility] Medical History Hyperlipidemia Non-tuberculous mycobacterial pneumonia Lung cancer COPD (chronic obstructive pulmonary disease) Surgical History Hx of nasal septoplasty Hx of colonoscopy History of esophagogastroduodenoscopy (EGD) History of pneumonectomy Social History Household Members: Family Housing: House Do you presently have visiting nurse or other home services: No Alcohol intake: current Alcohol intake frequency: a few times a week Alcohol type: hard liquor Patient Tobacco Use Status: Current everyday Tobacco user Tobacco use type: Cigarette e-Cigarette/Vaping Use: Never Used service: No Physical Exam Vital Signs: BMI result Body Mass Index 20.1 Const Other: Well-nourished well-developed very friendly female awake alert and oriented x3 in no acute distress Extrem Other: Bilateral lower extremity examination shows good capillary refill, no skin lesions noted, normal sensation light touch Left knee examination shows a minimal effusion, palpable crepitus with range of motion, pain with range of motion, no instability Office Procedures AMB Joint Injection/Aspiration Joint Injection/Aspiration Primary Site: left knee Prep: site was prepped using aseptic technique Injected: 40 mg of, DepoMedrol and 1% plain lidocaine Procedure: The patient tolerated the procedure well Coding - Large joint Procedure code (CPT) selection complete Results Reviewed Results Reviewed: X-rays of the patient's left knee show joint space narrowing, subchondral sclerosis, no acute bony abnormalities Assessment & Plan Assessment & Plan (1) Arthritis of left knee: Code(s): M17.12 - Unilateral primary osteoarthritis, left knee Category: Medical (2) Left knee pain: Code(s): M25.562 - Pain in left knee Category: Medical Plan Ms. Bar presents with left knee pain due to osteoarthritis. I had a lengthy discussion with the patient regarding the treatment options. She wishes to hold off on surgery for as long as possible. I agree with this plan. The risks and benefits of a left knee cortisone injection were discussed at length with the patient. The patient wished to proceed. She tolerated the injection well. She will continue with her home exercise program. She will contact me prior to her follow-up appointment in 3 months should any questions or concerns arise. Feel free to call me at any time should questions regarding her orthopedic management arise. I spent 20 minutes in reviewing the patient's records and imaging studies, seeing the patient and documenting in the medical record. Orders: Orders AMB Joint Injection/Aspiration Today M17.12 - Unilateral primary osteoarthritis, left knee Coding Level of Care Code Est Pt Level 3 (78045) Complex EM visit Add On G2211 Diagnoses Arthritis of left knee M17.12 Left knee pain M25.562 CPT Codes Coding - Large joint: 39189 - Large joint ([id number])
== END 2024-05-17 13:32 | disposition home or self-care (01) ==
LOC: HO.HOS 13:09
PROVIDERS: PCP Family Medicine; Visit Provider Orthopaedic Surgery
DX: M17.12 Unilateral primary osteoarthritis, left knee (principal); M25.562 Pain in left knee
CPT/HCPCS: 20610; 99213

== ENCOUNTER → 2024-05-17 13:05 | Outpatient (BNVA) | payer MEDICARE, SELFPAY | PROVIDERS: PCP Family Medicine; Visit Provider Orthopaedic Surgery | DX: M17.12 Unilateral primary osteoarthritis, left knee (principal); M25.562 Pain in left knee | CPT/HCPCS: 20610; 99212; J1010; J2003 ==

== ENCOUNTER 2024-10-25 08:37 | Outpatient (AMB) | payer MEDICARE, SELFPAY ==
--- NOTE | 2024-10-25 08:40 | MHC.OFFVIS ---
Intake Visit Reasons: inj-Left knee, last injection 05/17/24 Intake Note: Deb is a 69 year old female who presents with complaints of left knee pain. She describes her pain as sharp in nature. She denies any locking or giving way. She has had cortisone injections in the past which gave her fairly good relief. She wishes to hold off on surgery if at all possible. Allergies tree nut (TREE NUT) Allergy (Intermediate, Verified 10/25/24 08:43) MOUTH TINGLING atorvastatin (Lipitor) Allergy (Unknown, Verified 10/25/24 08:43) Unknown ENVIRONMENTAL Allergy (Intermediate, Uncoded 05/17/24 13:10) NASAL CONGESTION Medication List - Last Reconciled 10/25/24 by [place] Albarado MD albuterol sulfate 90 mcg/actuation 2 puffs inhalation QID PRN cyanocobalamin (vitamin B-12) 1,000 mcg PO DAILY esomeprazole magnesium 20 mg PO DAILY jtowzpmhxty-tarkctgkj-ypsqhjzl 100-62.5-25 mcg (Trelegy Ellipta) 1 ea inhalation DAILY Magic Mouthwash Diphen/Lido/Antacid 1:1:1 10 mL PO TID PRN 2 days rosuvastatin 1 tab PO MOTH PFSH Medical History Hyperlipidemia Non-tuberculous mycobacterial pneumonia Lung cancer COPD (chronic obstructive pulmonary disease) Surgical History Hx of nasal septoplasty Hx of colonoscopy History of esophagogastroduodenoscopy (EGD) History of pneumonectomy Social History Household Members: Family Housing: House Do you presently have visiting nurse or other home services: No Alcohol intake: current Alcohol intake frequency: a few times a week Alcohol type: hard liquor Patient Tobacco Use Status: Current everyday Tobacco user Tobacco use type: Cigarette e-Cigarette/Vaping Use: Never Used service: No Physical Exam Const Other: Well-nourished well-developed very friendly female awake alert and oriented x3 in no acute distress Extrem Other: Bilateral lower extremity examination shows good capillary refill, no skin lesions noted, normal sensation light touch Left knee examination shows a minimal effusion, palpable crepitus with range of motion, pain with range of motion, no instability Office Procedures AMB Joint Injection/Aspiration Joint Injection/Aspiration Primary Site: left knee Prep: site was prepped using aseptic technique Injected: 40 mg of, DepoMedrol and 1% plain lidocaine Procedure: The patient tolerated the procedure well Coding 40763 - Large joint Procedure code (CPT) selection complete Results Reviewed Results Reviewed: X-rays of the patient's left knee taken previously show joint space narrowing, subchondral sclerosis, no acute bony abnormalities Assessment & Plan Assessment & Plan (1) Arthritis of left knee: Code(s): M17.12 - Unilateral primary osteoarthritis, left knee Category: Medical Plan Ms. Bar presents with left knee pain due to osteoarthritis. The risks and benefits of a left knee cortisone injection were discussed at length with the patient. The patient wished to proceed. She tolerated the injection well. She will continue with her home exercise program. She will contact me prior to her follow-up appointment in 3 months should any questions or concerns arise. Feel free to call me at any time should questions regarding her orthopedic management arise. I spent 21 minutes in reviewing the patient's records and imaging studies, seeing the patient and documenting in the medical record. Orders: Orders AMB Joint Injection/Aspiration Today M17.12 - Unilateral primary osteoarthritis, left knee Coding Level of Care Code Est Pt Level 3 (51691) Complex EM visit Add On G2211 Diagnoses Arthritis of left knee M17.12 CPT Codes Coding - 09974 Large joint: 68864 - Large joint ([id number])
--- OUTSIDE RECORDS SUMMARY | 2024-10-25 09:59 | XMS_ITS | Encounter Summary ---
Author Organization [facility] Address [address] [place] [phone] Phone Care Team Providers Care Cement Production Plant Operator Name Role Phone Jeremiah Kennedy MD Primary Care Provider + Self-Referred, Patient Unavailable Unavailab Stuart Luz MD Unavailable [phone] Francis Salazar MD Unavailable [phone] Encounter Details Date Type Department Care Team (Late st Contact Info) Description 10/18/2023 Procedure Pass [facility], [place] [address] [place], [place] [id number] Social History Tobacco Use Types Packs/Day Years Used Date Smoking Tobacco: Every Day Cigarettes 1 48 Smokeless Tobacco: Never Comments:decrease from 1ppd to 2-3 cigarettes daily Alcohol Use Standard Drinks/Week Comments Yes 0 (1 standard drink = 0.6 oz pur e alcohol) 1-2 drinks three times week Education Answer Date Recorded Are you interested in more education? Not on elder e 06/05/2022 Are you concerned about learning? Not on file 06/05/2022 No 06/05/2022 No 06/05/2022 Digital Access Answer Date Recorded No 07/05/2022 No 07/05/2022 Reliable internet access at home? Not on file 07/05/2022 Device with a working camera? Not on file Comments No Sex and Gender Information Value Date Recorded Sex Assigned at Female 03/17/2021 7:48 PM EST Legal Sex Female 10:57 AM EDT Gender Identity Female 09/04/2020 6:46 PM EDT Sexual Orientation Straight 03/17/2021 7: 48 PM EST documented as of this encounter Plan of Treatment Upcoming Encounters Date Type Department Care Team (Late st Contact Info) Description 11/02/2024 12:30 PM EDT Hospital Encounter [facility] [address] [place] [address] Vadim Joy MD, MPH [address] [place] [phone] [email or web address] documented as of this encounter Visit Diagnoses Not on filedocumented in this encounter Additional Health Concerns Assessment Noted Time PHQ-2 Depression Total Score: 0 06/13/19 10:25 AM EDT documented as of this encounter Care Teams Cement Production Plant Operator Relationship Specialty Start Date End Date Jeremiah Kennedy MD [address] [place] [phone] PCP - General Family Medicine 08/29/20 Self-Referred, Patient 08/29/20 Stuart Smith MD [address] [place] [phone] [email or web address] Thoracic Surgery 09/06/20 Francis Salazar MD [address] [place] [phone] Internal Medicine 10/16/20 documented as of this encounter Additional Source Comments The information contained in this document represents components of the legal health record. It is not the complete legal health record.[facility]
--- OUTSIDE RECORDS SUMMARY | 2024-10-25 09:59 | XMS_ITS | Encounter Summary ---
Author Organization [facility] Address [address] [place] [phone] Phone Care Team Providers Care Engraving Operator Name Role Phone Jeremiah Kennedy MD Primary Care Provider + Self-Referred, Patient Unavailable Unavailab Stuart Luz MD Unavailable [phone] Francis Salazar MD Unavailable [phone] Encounter Details Date Type Department Care Team (Late st Contact Info) Description 06/23/2021 Procedure Pass [facility] [address] [place] [address] Social History Tobacco Use Types Packs/Day Years Used Date Smoking Tobacco: Every Day Cigarettes 1 48 Smokeless Tobacco: Never Comments:decrease from 1ppd to 2-3 cigarettes daily Alcohol Use Standard Drinks/Week Comments Yes 0 (1 standard drink = 0.6 oz pur e alcohol) 1-2 drinks three times week Comments No Sex and Gender Information Value [...] EDT Hospital Encounter [facility] [address] [place] [address] Vadim Joy MD, MPH [address] [place] [phone] [email or web address] documented as of this encounter Visit Diagnoses Not on filedocumented in this encounter Additional Health Concerns Assessment Noted Time PHQ-2 Depression Total Score: 0 01/28/20 10:08 AM EST documented as of this encounter Care Teams Engraving Operator Relationship Specialty Start Date End Date Jeremiah Kennedy MD [address] [place] [phone] PCP - General Family Medicine 08/29/20 Self-Referred, Patient 08/29/20 Stuart Smith MD [address] [place] [phone] [email or web address] Thoracic Surgery 09/06/20 Francis Salazar MD [address] [place] [phone] Internal Medicine 10/16/20 documented as of this encounter Additional Source Comments The information contained in this document represents components of the legal health record. It is not the complete legal health record.[facility]
--- OUTSIDE RECORDS SUMMARY | 2024-10-25 09:59 | XMS_ITS | Encounter Summary ---
Author Organization Located Within [facility] Address [address] [place] [address] Phone Care Team Providers Care Cloth Folder Machine Name Role Phone Jeremiah Kennedy MD Primary Care Provider + Self-Referred, Patient Unavailable Unavailab Stuart Luz MD Unavailable [phone] Francis Salazar MD Unavailable [phone] Encounter Details Date Type Department Care Team (Late st Contact Info) Description 10/16/2020 Prep for Surgery [facility] Thoracic Surgery 15 [facility] 204 [place] [address] Cindy [email or web address] Social History Tobacco Use Types Packs/Day Years Used Date Smoking Tobacco: Every Day Cigarettes 1 48 Smokeless Tobacco: Never Comments:decrease from 1ppd to 2-3 cigarettes daily Alcohol Use Standard Drinks/Week Comments Yes 3 (1 standard drink = 0.6 oz pur e alcohol) 2-3 weekly Comments No Sex and Gender Information Value [...] EDT Hospital Encounter [facility] 30 [place] [address] Vadim Joy MD, MPH [address] [place] [address] [email or web address] documented as of this encounter Visit Diagnoses Not on filedocumented in this encounter Additional Health Concerns Infection Onset Date Last Indicated Resolved Time CoV-Exposed Comment:Patient meets exposure criteria to a COVID+ HCW on 02/14/2021 02/14/2021 02/21/2021 1:24 AM EST CoV-Risk Comment:Per Ambulatory Triage Form 02/22/2021 02/23/202103/05 1:24 AM EST documented as of this encounter Care Teams Cloth Folder Machine Relationship Specialty Start Date End Date Jeremiah Kennedy MD [address] [place] [address] PCP - General Family Medicine 08/29/20 Self-Referred, Patient 08/29/20 Stuart Smith MD [address] [place] [address] [email or web address] Thoracic Surgery 09/06/20 Francis Salazar MD [address] [place] [address] Internal Medicine 10/16/20 documented as of this encounter Additional Source Comments The information contained in this document represents components of the legal health record. It is not the complete legal health record.[facility]
--- OUTSIDE RECORDS SUMMARY | 2024-10-25 09:59 | XMS_ITS | Encounter Summary ---
Author Organization [facility] Address [address] [place] [address] Phone Care Team Providers Care Milk Inspector Name Role Phone Jeremiah Kennedy MD Primary Care Provider + Self-Referred, Patient Unavailable Unavailab Stuart Luz MD Unavailable [phone] Francis Salazar MD Unavailable [phone] Encounter Details Date Type Department Care Team (Late st Contact Info) Description 02/16/2022 Procedure Pass [facility] 70 [place] [address] Social History Tobacco Use Types Packs/Day Years [...] EDT Hospital Encounter [facility] 30 [place] [address] Vadim Joy MD, MPH [address] [place] [address] [email or web address] documented as of this encounter Visit Diagnoses Not on filedocumented in this encounter Additional Health Concerns Assessment Noted Time PHQ-2 Depression Total Score: 0 02/16/19 23 10:21 AM EST documented as of this encounter Care Teams Milk Inspector Relationship Specialty Start Date End Date Jeremiah Kennedy MD [address] [place] [address] PCP - General Family Medicine 08/29/20 Self-Referred, Patient 08/29/20 Stuart Smith MD [address] [place] [address] [email or web address] Thoracic Surgery 09/06/20 [place] [address] [place] [address] Internal Medicine 10/16/20 documented as of this encounter Additional Source Comments The information contained in this document represents components of the legal health record. It is not the complete legal health record.[facility]
--- OUTSIDE RECORDS SUMMARY | 2024-10-25 09:59 | XMS_ITS | Encounter Summary ---
Author Organization [facility] Address [facility] [employer] [facility] [address] [place] [address] Phone Care Team Providers Care Jewelry Sales Representative Name Role Phone Jeremiah Kennedy MD Primary Care Provider + Self-Referred, Patient Unavailable Unavailab Stuart Luz MD Unavailable [phone] Francis Salazar MD Unavailable [phone] Encounter Details Date Type Department Care Team (Late st Contact Info) Description 09/14/2022 Procedure Pass [facility] 75 [place] [address] Social History Tobacco Use Types Packs/Day Years [...] EDT Hospital Encounter [facility] 30 [place] [address] Vadim Joy MD, MPH [address] [place] [address] [email or web address] documented as of this encounter Visit Diagnoses Not on filedocumented in this encounter Additional Health Concerns Assessment Noted Time PHQ-2 Depression Total Score: 0 03/22/19 24 9:18 AM EST documented as of this encounter Care Teams Jewelry Sales Representative Relationship Specialty Start Date End Date Jeremiah Kennedy MD [address] [place] [address] PCP - General Family Medicine 08/29/20 Self-Referred, Patient 08/29/20 Stuart Smith MD [address] [place] [address] [email or web address] Thoracic Surgery 09/06/20 Francis Salazar MD [address] [place] [address] Internal Medicine 10/16/20 documented as of this encounter Additional Source Comments The information contained in this document represents components of the legal health record. It is not the complete legal health record.[facility]
--- OUTSIDE RECORDS SUMMARY | 2024-10-25 09:59 | XMS_ITS | Encounter Summary ---
Author Organization [facility] Address [address] [place] [address] [place] [address] Phone Care Team Providers Care Production Material Handler Name Role Phone Jeremiah Kennedy MD Primary Care Provider + Self-Referred, Patient Unavailable Unavailab Stuart Luz MD Unavailable [phone] Francis Salazar MD Unavailable Encounter Details Date Type Department Care Team (Late st Contact Info) Description 10/28/2020 Procedure Pass [facility] [address] [place] [address] Social History Tobacco Use Types Packs/Day Years [...] Encounters Date Type Department Care Team (Late Contact Info) Description 11/02/2024 12:30 PM EDT Hospital Encounter [facility] 30 [place] [address] Vadim Joy MD, MPH [address] [place] [address] [email or web address] documented as of this encounter Visit Diagnoses Not on filedocumented in this encounter Additional Health Concerns Infection Onset Date Last Indicated Resolved Time CoV-Exposed Comment:Patient meets exposure criteria to a COVID+ HCW on 02/14/2021 02/14/2021 02/21/2021 1:24 AM EST CoV-Risk Comment:Per Ambulatory Triage Form 02/22/2021 02/23/202103/05 1:24 AM EST Assessment Noted Time PHQ-2 Depression Total Score: 0 01/28/20 10:08 AM EST documented as of this encounter Care Teams Production Material Handler Relationship Specialty Start Date End Date Jeremiah Kennedy MD [address] [place] [address] PCP - General Family Medicine 08/29/20 Self-Referred, Patient 08/29/20 Stuart Smith MD [address] [place] [address] [email or web address] Thoracic Surgery 09/06/20 Francis Salazar MD [address] [place] [address] Internal Medicine 10/16/20 documented as of this encounter Additional Source Comments The information contained in this document represents components of the legal health record. It is not the complete legal health record.[facility]
--- OUTSIDE RECORDS SUMMARY | 2024-10-25 09:59 | XMS_ITS | Encounter Summary ---
Author Organization [facility] Address [address] [place] [address] [place] [address] Phone Care Team Providers Care Watermelon Inspector Name Role Phone Jeremiah Kennedy MD Primary Care Provider + Self-Referred, Patient Unavailable Unavailab Stuart Luz MD Unavailable [phone] Francis Salazar MD Unavailable [phone] Encounter Details Date Type Department Care Team (Late st Contact Info) Description 06/10/2021 Procedure Pass [facility] 75 [place] [address] Social History Tobacco Use Types Packs/Day Years [...] EDT Hospital Encounter [facility] 30 [place] [address] Vadim Joy MD, MPH [address] [place] [address] [email or web address] documented as of this encounter Visit Diagnoses Not on filedocumented in this encounter Additional Health Concerns Assessment Noted Time PHQ-2 Depression Total Score: 0 01/28/20 10:08 AM EST documented as of this encounter Care Teams Watermelon Inspector Relationship Specialty Start Date End Date Jeremiah Kennedy MD [address] [place] [address] PCP - General Family Medicine 08/29/20 Self-Referred, Patient 08/29/20 Stuart Smith MD [address] [place] [address] [email or web address] Thoracic Surgery 09/06/20 Francis Salazar MD [address] [place] [address] Internal Medicine 10/16/20 documented as of this encounter Additional Source Comments The information contained in this document represents components of the legal health record. It is not the complete legal health record.[facility]
--- OUTSIDE RECORDS SUMMARY | 2024-10-25 09:59 | XMS_ITS | Encounter Summary ---
Author Organization [facility] Address [address] [place] [address] Phone Care Team Providers Care Drum Maker Name Role Phone Jeremiah Kennedy MD Primary Care Provider + Self-Referred, Patient Unavailable Unavailab Stuart Luz MD Unavailable [phone] Francis Salazar MD Unavailable [phone] Encounter Details Date Type Department Care Team (Late st Contact Info) Description 02/14/2021 Procedure Pass [facility] Periop 75 [place] [address] Social History Tobacco Use Types Packs/Day Years [...] EDT Hospital Encounter [facility] 30 [place] [address] Vadim Joy MD, MPH [address] [place] [address] [email or web address] documented as of this encounter Visit [...] documented as of this encounter Care Teams Drum Maker Relationship Specialty Start Date End Date Jeremiah Kennedy MD [address] [place] [address] PCP - General Family Medicine 08/29/20 Self-Referred, Patient 08/29/20 Stuart Smith MD [address] [place] [address] [email or web address] Thoracic Surgery 09/06/20 Francis Salazar MD [address] [place] [address] Internal Medicine 10/16/20 documented as of this encounter Additional Source Comments The information contained in this document represents components of the legal health record. It is not the complete legal health record.[facility]
--- OUTSIDE RECORDS SUMMARY | 2024-10-25 09:59 | XMS_ITS | Encounter Summary ---
Author Organization [facility] Address [address] [place] [address] Phone Care Team Providers Care Road Driver Name Role Phone Jeremiah Kennedy MD Primary Care Provider + Self-Referred, Patient Unavailable Unavailab Stuart Luz MD Unavailable [phone] Francis Salazar MD Unavailable Encounter Details Date Type Department Care Team (Late st Contact Info) Description 09/09/2020 Procedure Pass [facility] Echocardiography 70 [place] [address] Social History Tobacco Use Types Packs/Day Years Used Date Smoking Tobacco: Every Day Cigarettes 1 48 Comments:decrease from 1ppd to 2-3 cigarettes daily Alcohol Use Standard Drinks/Week Comments Yes 0 (1 standard drink = 0.6 oz pure alcohol) 2-3 x weekly with 1-2 drinks per occasion. Comments Unknown Sex and Gender Information Value Date Recorded [...] EDT Hospital Encounter [facility] 30 [place] [address] Vadim Joy MD, MPH [address] [place] [address] [email or web address] documented as of this encounter Visit Diagnoses Not on filedocumented in this encounter Additional Health Concerns Infection Onset Date Last Indicated Resolved Time CoV-Exposed Comment:Patient meets exposure criteria to a COVID+ HCW on 02/14/2021 02/14/2021 02/21/2021 1:24 AM EST CoV-Risk Comment:Per Ambulatory Triage Form 02/22/2021 02/23/202103/05 1:24 AM EST documented as of this encounter Care Teams Road Driver Relationship Specialty Start Date End Date Jeremiah Kennedy MD [address] [place] [address] PCP - General Family Medicine 08/29/20 Self-Referred, Patient 08/29/20 Stuart Smith MD [address] [place] [address] [email or web address] Thoracic Surgery 09/06/20 Francis Salazar MD [address] [place] [address] Internal Medicine 10/16/20 documented as of this encounter Additional Source Comments The information contained in this document represents components of the legal health record. It is not the complete legal health record.[facility]
--- OUTSIDE RECORDS SUMMARY | 2024-10-25 09:59 | XMS_ITS | Encounter Summary ---
Author Organization [facility] Address [address] [place] [address] Phone Care Team Providers Care Casino Cage Cashier Name Role Phone Jeremiah Kennedy MD Primary Care Provider + Self-Referred, Patient Unavailable Unavailab Stuart Luz MD Unavailable [phone] Francis Salazar MD Unavailable [phone] Encounter Details Date Type Department Care Team (Late st Contact Info) Description 06/23/2021 Procedure Pass [facility] [address] [place] [address] Social History Tobacco Use Types Packs/Day Years [...] EDT Hospital Encounter [facility] 30 [place] [address] Vadim Jyo MD, MPH [address] [place] [address] [email or web address] documented as of this encounter Visit Diagnoses Not on filedocumented in this encounter Additional Health Concerns Assessment Noted Time PHQ-2 Depression Total Score: 0 01/28/20 10:08 AM EST documented as of this encounter Care Teams Casino Cage Cashier Relationship Specialty Start Date End Date Jeremiah Kennedy MD [address] [place] [address] PCP - General Family Medicine 08/29/20 Self-Referred, Patient 08/29/20 Stuart Smith MD [address] [place] [address] [email or web address] Thoracic Surgery 09/06/20 Francis Salazar MD [address] [place] [address] Internal Medicine 10/16/20 documented as of this encounter Additional Source Comments The information contained in this document represents components of the legal health record. It is not the complete legal health record.[facility]
--- OUTSIDE RECORDS SUMMARY | 2024-10-25 09:59 | XMS_ITS | Encounter Summary ---
Author Organization [facility] Address [facility] [address] [address] Phone Care Team Providers Care Watch Crystal Molder Name Role Phone Jeremiah Kennedy MD Primary Care Provider + Self-Referred, Patient Unavailable Unavailab Stuart Luz MD Unavailable [phone] Francis Salazar MD Unavailable [phone] Encounter Details Date Type Department Care Team (Late st Contact Info) Description 10/21/2020 Procedure Pass [facility] Periop 75 [place] [address] Social History Tobacco Use Types Packs/Day Years [...] PM EST documented as of this encounter Functional Status * Calculated C-SSRS Risk Score (Lifetime/Recent) Answer Date of Assessment Author No Risk Indicated 10/21/2020 11:29 PM EDT Jazmin Merritt, RN * [place] Suicide Severity Rating Scale (Screener/Recent Self-Report) Question Answer Date of Assessment Author 1. Wish to be (Past 1 Month) No 021 11:29 PM EDT Jazmin Merritt, RN 2. Non-Specific Active Suici yahaira Thoughts (Past 1 Month) No 10/21/2020 11:29 PM EDT Leyla Merritt RN 6. Suicidal Behavior (Lifetime) No 11:29 PM EDT Jazmin Merritt RN documented as of this encounter Plan of Treatment Upcoming Encounters Date Type Department Care Team (Late st Contact Info) Description 11/02/2024 12:30 PM EDT Hospital Encounter [facility] 30 [place] [address] Vadim Joy MD, MPH [address] [place] [address] [email or web address] documented as of this encounter Visit Diagnoses Not on filedocumented in this encounter Additional Health Concerns Infection Onset Date Last Indicated Resolved Time CoV-Exposed Comment:Patient meets exposure criteria to a COVID+ HCW on 02/14/2021 02/14/2021 02/21/2021 1:24 AM EST CoV-Risk Comment:Per Ambulatory Triage Form 02/22/2021 02/23/202103/05 1:24 AM EST documented as of this encounter Care Teams Watch Crystal Molder Relationship Specialty Start Date End Date Jeremiah Kennedy MD [address] [place] [address] PCP - General Family Medicine 08/29/20 Self-Referred, Patient 08/29/20 Stuart Smith MD [address] [place] [address] [email or web address] Thoracic Surgery 09/06/20 Francis Salazar MD [address] [place] [address] Internal Medicine 10/16/20 documented as of this encounter Additional Source Comments The information contained in this document represents components of the legal health record. It is not the complete legal health record.[facility]
--- OUTSIDE RECORDS SUMMARY | 2024-10-25 09:59 | XMS_ITS | Encounter Summary ---
Author Organization [facility] Address [address] [place] [address] Phone Care Team Providers Care Milled Rubber Tender Name Role Phone Jeremiah Kennedy MD Primary Care Provider + Self-Referred, Patient Unavailable Unavailab Stuart Luz MD Unavailable [phone] Francis Salazar MD Unavailable [phone] Reason for Visit * Reason Comments Medication Refill Encounter Details Date Type Department Care Team (Late st Contact Info) Description 12/08/2022 Refill [facility] 15 [place] [address] Nissa Brown, MANNY [address] [place] [place] [phone] [email or web address] Medication Refill Social History Tobacco Use Types Packs/Day Years [...] EDT Hospital Encounter [facility] 30 [place] [address] Vadim Joy MD, MPH [address] [place] [address] [email or web address] documented as of this encounter Visit Diagnoses Not on filedocumented in this encounter Additional Health Concerns Assessment Noted Time PHQ-2 Depression Total Score: 0 02/16/19 23 10:21 AM EST documented as of this encounter Care Teams Milled Rubber Tender Relationship Specialty Start Date End Date Jeremiah Kennedy MD [address] [place] [address] PCP - General Family Medicine 08/29/20 Self-Referred, Patient 08/29/20 Stuart Smith MD [address] [place] [address] [email or web address] Thoracic Surgery 09/06/20 Francis Salazar MD [address] [place] [address] Internal Medicine 10/16/20 documented as of this encounter Additional Source Comments The information contained in this document represents components of the legal health record. It is not the complete legal health record.[facility]
--- OUTSIDE RECORDS SUMMARY | 2024-10-25 09:59 | XMS_ITS | Encounter Summary ---
Author Organization [facility] Address [address] [place] [address] [place] [address] Phone Care Team Providers Care Blacktop Spreader Name Role Phone Jeremiah Kennedy MD Primary Care Provider + Self-Referred, Patient Unavailable Unavailab Stuart Luz MD Unavailable [phone] Francis Salazar MD Unavailable [phone] Encounter Details Date Type Department Care Team (Late st Contact Info) Description 10/16/[address] [facility] [address] [place] [address] Social History Tobacco Use Types Packs/Day Years [...] EDT Hospital Encounter [facility] 30 [place] [address] Vadim Joy MD, MPH [address] [place] [address] [email or web address] documented as of this encounter Visit Diagnoses Not on filedocumented in this encounter Additional Health Concerns Infection Onset Date Last Indicated Resolved Time CoV-Exposed Comment:Patient meets exposure criteria to a COVID+ HCW on 02/14/2021 02/14/2021 02/21/2021 1:24 AM EST CoV-Risk Comment:Per Ambulatory Triage Form 02/22/2021 02/23/202103/05 1:24 AM EST documented as of this encounter Care Teams Blacktop Spreader Relationship Specialty Start Date End Date Jeremiah Kennedy MD [address] [place] [address] PCP - General Family Medicine 08/29/20 Self-Referred, Patient 08/29/20 Stuart Smith MD [address] [place] [address] [email or web address] Thoracic Surgery 09/06/20 Francis Salazar MD [address] [place] [address] Internal Medicine 10/16/20 documented as of this encounter Additional Source Comments The information contained in this document represents components of the legal health record. It is not the complete legal health record.[facility]
--- OUTSIDE RECORDS SUMMARY | 2024-10-25 10:00 | XMS_ITS | Encounter Summary ---
Author Organization [facility] Address [address] [place] [address] Phone Care Team Providers Care Bsa Officer Name Role Phone Jeremiah Kennedy MD Primary Care Provider + Self-Referred, Patient Unavailable Unavailab Stuart Luz MD Unavailable [phone] Francis Salazar MD Unavailable [phone] Encounter Details Date Type Department Care Team (Late st Contact Info) Description 03/22/2023 Procedure Pass [facility], [place] [address] [place] [address] Social History Tobacco Use Types Packs/Day Years [...] EDT Hospital Encounter [facility] 30 [place] [address] Vadim Joy MD, MPH [address] [place] [address] [email or web address] documented as of this encounter Visit Diagnoses Not on filedocumented in this encounter Additional Health Concerns Assessment Noted Time PHQ-2 Depression Total Score: 0 10/18/19 24 11:36 AM EDT documented as of this encounter Care Teams Bsa Officer Relationship Specialty Start Date End Date Jeremiah Kennedy MD [address] [place] [address] PCP - General Family Medicine 08/29/20 Self-Referred, Patient 08/29/20 Stuart Smith MD [address] [place] [address] [email or web address] Thoracic Surgery 09/06/20 Francis Salazar MD [address] [place] [address] Internal Medicine 10/16/20 documented as of this encounter Additional Source Comments The information contained in this document represents components of the legal health record. It is not the complete legal health record.[facility]
--- OUTSIDE RECORDS SUMMARY | 2024-10-25 10:00 | XMS_ITS | Encounter Summary ---
Author Organization [facility] Address [address] [place] [phone] Phone Care Team Providers Care Oil Change Technician Name Role Phone Jeremiah Kennedy MD Primary Care Provider + Self-Referred, Patient Unavailable Unavailab le Stuart Smith MD Unavailable [phone] Francis Salazar MD Unavailable [phone] Reason for Referral * MRI/CAT Scan - Closed Specialty Diagnoses / Procedures Referred By Contac t Referred To Contact Radiology Diagnoses Lung mass Procedures NM Lung Perfusion Differential Quantification NM Lung Perfusion and Ventilation Differential Quantification Stuart Smith MD Phone: tel: fax: mailto:[email or web address] Referral ID Status Reason Start Date Expiration Date Visits Re quested Visits Authorized [id number] Closed 09/09/2020 09/09/2021 1 1 Encounter Details Date Type Department Care Team (Late st Contact Info) Description 09/16/2020 Ancillary Orders [facility] Thoracic Surgery [address] [facility] [address] [place] [address] Stuart Smith MD [address] [place] [address] [email or web address] Social History Tobacco Use Types Packs/Day Years Used Date Smoking Tobacco: Every Day Cigarettes 1 48 Smokeless Tobacco: Never Comments:decrease from 1ppd to 2-3 cigarettes daily Alcohol Use Standard Drinks/Week Comments Yes 0 (1 standard drink = 0.6 oz pur e alcohol) 2-3 weekly Comments Unknown Sex and Gender Information Value [...] EDT Hospital Encounter [facility] [address] [place] [address] Vadim Joy MD, MPH [address] [place] [id number] [email or web address] documented as of this encounter Results * NM Lung Perfusion Differential Quantification (09/16/2020 8:47 AM EDT) Anatomical Region Laterality Modality Chest, Lung Nuclear Medicine 09/16/2020 8:29 AM EDT Impressions 09/16/2020 8:48 AM EDT 1. There is asymmetrically decreased perfusion in the bilateral lung apices. 2. Relative differential lung perfusion: left 46.7%, right 53.3%. ATTESTATION: Mary Clark, as teaching physician have reviewed the images, if any, for this patient's exam, and if necessary, have edited the report originally created by Cristopher Murray. Narrative 09/16/2020 8:48 AM EDT Reason for exam (per EHR order): Pre-Op Additional clinical information obtained from the EHR: 65-year-old female. Bilateral FDG avid apical lung nodules. Pre-operative assessment of lung ventilation and perfusion. TECHNIQUE: [employer]: 3.5 mCi of Tc-99m MAA injected intravenously. Image acquisition: Planar perfusion images of the lungs were obtained in in the anterior, posterior, left anterior oblique, right anterior oblique, left posterior oblique, and right posterior oblique projections. COMPARISON: PET CT 06/27/2020. FINDINGS: Perfusion: There is moderately heterogeneous perfusion throughout the lung starks. There is asymmetrically decreased perfusion in the bilateral lung apices. Quantitation of the regional perfusion function (using the geometric mean of the anterior and posterior images) is as shown in the following table: % OF THE TOTAL PULMONARY ACTIVITY IN EACH LUNG ZONE: LEFT LUNG RIGHT LUNG PERFUSION PERFUSION Q(L) Q(R) LUNG ZONE UPPER 1/3: 7.4 4.7 MIDDLE 1/3: 25.1 27.8 LOWER 1/3: 14.2 20.8 ------ ------ ------ ------ WHOLE LUN.7 53.3 Procedure Note Mary Vera MD, PhD - 09/16/2020 Reason for exam (per EHR order): Pre-Op Additional clinical information obtained from the EHR: 65-year-old female.Bilateral FDG avid apical lung nodules. Pre-operative assessment of lungventilation and perfusion. TECHNIQUE: [employer]: 3.5 mCi of Tc-99m MAA injected intravenously. Image acquisition: Planar perfusion images of the lungs were obtained inin the anterior, posterior, left anterior oblique, right anterior oblique,left posterior oblique, and right posterior oblique projections. COMPARISON: PET CT 06/27/2020. FINDINGS: Perfusion: There is moderately heterogeneous perfusion throughout the lung starks.There is asymmetrically decreased perfusion in the bilateral lungapices. Quantitation of the regional perfusion function (using the geometric meanof the anterior and posterior images) is as shown in the followingtable: % OF THE TOTAL PULMONARY ACTIVITY IN EACH LUNG ZONE: LEFT LUNG RIGHT LUNG PERFUSION PERFUSION Q(L) Q(R) LUNG ZONE UPPER 1/3: 7.4 4.7 MIDDLE 1/3: 25.1 27.8 LOWER 1/3: 14.2 20.8 ------ ------ ------ ------ WHOLE LUN.7 53.3 IMPRESSION: 1. There is asymmetrically decreased perfusion in the bilateral lungapices. 2. Relative differential lung perfusion: left 46.7%, right 53.3%. ATTESTATION: I, Mary Vera, as teaching physician have reviewed theimages, if any, for this patient's exam, and if necessary, have edited thereport originally created by Cristopher Murray. Stuart Smith MD [facility] LUNG SCAN Final Result documented in this encounter Visit Diagnoses Diagnosis Lung mass Swelling, mass, or lump in chest Lung mass Swelling, mass, or lump in chest documented in this encounter Additional Health Concerns Infection Onset Date Last Indicated Resolved Time CoV-Exposed Comment:Patient meets exposure criteria to a COVID+ HCW on 02/14/2021 02/14/2021 02/21/2021 1:24 AM EST CoV-Risk Comment:Per Ambulatory Triage Form 02/22/2021 02/23/202103/05 1:24 AM EST documented as of this encounter Care Teams Oil Change Technician Relationship Specialty Start Date End Date Jeremiah Kennedy MD [address] [place] [phone] PCP - General Family Medicine 08/29/20 Self-Referred, Patient 08/29/20 Stuart Smith MD [address] [place] [id number] [email or web address] [email or web address] Surgery 09/06/20 Francis Salazar MD [address] [place] [phone] Internal Medicine 10/16/20 documented as of this encounter Additional Source Comments The information contained in this document represents components of the legal health record. It is not the complete legal health record.[facility]
--- OUTSIDE RECORDS SUMMARY | 2024-10-25 10:00 | XMS_ITS | Clinical Summary ---
Author Organization [facility] Address [address] [place] [phone] Phone Care Team Providers Care Hairspring Inspector Name Role Phone Jeremiah Kennedy MD Primary Care Provider + Self-Referred, Patient Unavailable Unavailab Stuart Luz MD Unavailable Francis Salazar MD Unavailable [phone] Allergies Active Allergy Reactions Criticality Noted Date Comments Erythromycin Rash Low 09/04/2020 Atorvastatin Unknown 09/04/2020 LFT's elevated Fish Derived Rash Low 09/04/2020 Medications tiotropium (SPIRIVA HANDIHALER) 18 mcg inhalation capsule Inhale 18 mcg into the lungs as needed. Active ethambutoL (MYAMBUTOL) 400 MG tablet Take 4 tablets (1,600 mg total) by mouth 3 (three) times a week. 56 tablet 11 2 Active fluticasone-ume clidin-vilanter (TRELEGY ELLIPTA) 100-62.5-25 mcg inhalation powder Inhale 1 puff into the lungs daily. 60 each 2 5 Active albuterol 90 mcg/actuation inhaler Inhale 2 puffs into the lungs every 4 (four) hours as needed for wheezing or shortness of breath/dyspnea . 18 g 4 5 Active azithromycin (ZITHROMAX) 500 MG tablet Take 1 tablet (500 mg total) by mouth 3 (three) times a week on Wednesday, Wednesday, Wednesday. Take for traveller's diarrhea 14 tablet 11 5 Active Active Problems Problem Noted Date Diagnosed Date Non-small cell cancer of left lung 10/21/2020 Primary adenocarcinoma of upper lobe of left jen g 09/13/2020 Bronchitis Chronic obstructive pulmonary disease Overview (10/16/2020): current smoker, no home oxygen, + chronic productive cough Dyslipidemia Gastroesophageal reflux disease Osteoporosis Asthma Allergies Lung nodule Overview (10/16/2020): Biopsy of her left upper lobe nodule showed evidence of lung adenocarcinoma on the left and necrotizing granulomatous changes on the right but no evidence of malignancy Encounters Date Type Department Care Team Description 10/16/2024 2:00 PM EDT Telemedicine - audio only [facility] [address] [place] [address] Stuart Smith MD 10/05/2024 Transcribe Orders [facility] [address] [place] [id number] Vadim Joy MD, MPH 09/29/2024 5:20 PM EDT Ancillary Procedure [facility] [address] [place] [address] Bharti Bustamante PA-C Lung nodule 09/29/2024 Orders Only [facility] Thoracic Surgery [address] [place] [address] Bharti Bustamante PA-C Lung nodule (Primary Dx) 09/29/2024 Documentation [facility] Thoracic Surgery [facility] [address] [place] [address] Stuart Smiht MD 09/21/2024 2:44 PM EDT - 09/21/2024 11:59 PM EDT Hospital Encounter [facility], Pet/Ct - [address] [address] Stuart Smith MD Discharge Disposition: Home or Self Care from Last 3 Months Immunizations Immunization Administration Dates Next Due COVID-19 (Pre-11/30) Pfizer Vaccine, mRNA, PF 12/25/2020,06/12/2020,05/22/2020 Influenza High-Dose Quadriva lent Preservative Free IM 10/23/2020(Deferred: Patient Refused) Family History Medical History Relation Comments Diabetes Father Heart attack Father Relation Status Comments Father Social History Tobacco Use Types Packs/Day Years Used Date Smoking Tobacco: Every Day Cigarettes 1 48 Smokeless Tobacco: Never Tobacco Cessation:Ready to Q uit: Not Asked; Counseling Given: Not Answered Comments:decrease from 1ppd to 2-3 cigarettes daily [...] Orientation Straight 03/17/2021 7: 48 PM EST Last Filed Vital Signs Vital Sign Reading Time Taken Comments Blood Pressure 119/65 06/12/2024 10:22 AM EDT Pulse 84 06/12/2024 10:22 AM EDT Temperature 36.4 C (97.6 F) 06/12/2024 10:22 AM EDT Respiratory Rate 16 06/12/2024 10:22 AM EDT Oxygen Saturation 96% 06/12/2024 10:22 AM EDT Inhaled Oxygen Concentration - - Weight 49 kg (108 lb) 06/12/2024 10:22 AM EDT Height 154.9 cm (5' 1 ) 06/12/2024 10:22 AM EDT Body Mass Index 20.41 06/12/2024 10:22 AM EDT Plan of Treatment Upcoming Encounters Date Type Department Care Team (Late st Contact Info) Description 11/02/2024 12:30 PM EDT Hospital Encounter [facility] [address] [place] [address] Vadim Joy MD, MPH [address] [place] [address] [email or web address] Health Maintenance Due Date Last Done Comments HEPATITIS C SCREENING 1972 ZOSTER VACCINES (1 of 2) 1973 MAMMOGRAM 1994 COLOGUARD 04/17/1999 COLONOSCOPY 04/17/1999 COLORECTAL CANCER SCREENING 04/17/1999 FIT TEST 04/17/1999 FOBT 04/17/1999 SIGMOIDOSCOPY 04/17/1999 VIRTUAL COLONOSCOPY 04/17/1999 RSV VACCINE (1 - Risk 60-74 years 1-dose series) 2014 OSTEOPOROSIS SCREENING INITIAL (ONE-TIME) 04/17/2019 PNEUMOCOCCAL VACCINES (50+ years) (3 of 3 - PPSV23, PCV20 or PCV21) 10/24/2019 08/29/2019, 12/23/2010 INFLUENZA VACCINE (#1) 2024 , 12/12/2020, 11/17/2019, Additional history exists COVID-19 VACCINE ( season) 2024 12/25/2020, 06/12/2020, 05/22/2020 DEPRESSION SCREENING 06/12/2025 06/12/2024 SMOKING Hx and SMOKELESS TOBACCO SCREENING 06/12/2025 06/12/2024 LIPID PANEL 11/22/2028 11/23/2023 Adult Td,Tdap Booster 11/15/2033 11/16/2023 , 12/12/2018, 02/21/1999 HEPATITIS A VACCINES Aged Out No long er eligible based on patient's age to complete this topic HIB VACCINES Aged Out No longer eligi ble based on patient's age to complete this topic MENINGOCOCCAL VACCINES (ACWY) Aged Out No longer eligible based on patient's age to complete this topic MENINGOCOCCAL VACCINES (B) Aged Out N o longer eligible based on patient's age to complete this topic Medical Devices Not on file Procedures Procedure Name Priority Date/Time Associated Diagnosis Comments OUTSIDE IMAGING 10/03/2024 NM PET WHOLE BODY OUTSIDE WITH INTERPRETATION OR CONSULT Routine 09/29/2024 5:15 PM EDT Lung nodule NM PET CT SKULL BASE TO MID THIGHS Routine 09/21/2024 3:23 PM EDT Primary adenocarcinoma of upper lobe of left lung from Last 3 Months Results * Outside Imaging Report Only (10/03/2024) us Scanning Interface Provider IMG XR CHEST Vickie l Result * NM PET Whole Body Outside With Interpretation Or Consult (09/29/2024 5:15 PM EDT) 10/07/2024 10:3 4 PM EDT Impressions [facility] - 10/07/2024 11:37 PM EDT Compared to FDG PET/CT dated 02/12/2021: 1. Gradual increase in size of irregular right lower lobe nodule with new mild FDG uptake, may represent primary lung malignancy. 2. New irregular moderately FDG avid right upper lobe nodule with adjacent linear opacity, may represent malignancy or infectious/inflammatory change. 3. Previously noted intensely avid right upper lobe nodule is not visualized status post reportedly benign biopsy, with residual minimally FDG avid linear opacity. 4. Decreased size of a 5 mm posterior right upper lobe nodule too small to characterize on PET but without significant FDG uptake, previously cavitary and mildly avid, likely infectious/inflammatory. 5. Additional too small to characterize sub-6 mm nodules, better evaluated on prior CT. Narrative [facility] - 10/07/2024 11:37 PM EDT OUTSIDE STUDY SECOND OPINION CONSULTATION The imaging reviewed below has been performed at an outside institution. At the request of the patient's referring provider, we have been asked to interpret examination(s) pertinent to facilitating current patient care at [facility]. [facility] are not responsible for image quality, completeness of this examination, or accuracy of patient identity. OUTSIDE INSTITUTION: [facility] Main STUDY ACQUISITION DATE: 09/21/2024. STUDY INTERPRETATION DATE: 10/07/2024. Additional clinical information obtained from the EHR: 69-year-old female. History of non-small cell lung cancer status post left apical wedge resection and COPD presenting for evaluation of right lower lobe nodule. Initial treatment strategy. TECHNICAL PARAMETERS QUALITY: Interpretable Radiopharmaceutical: F-18-FDG. Dose: 12.5 mCi. Blood glucose: 98 mg/dL. Time between injection and scanning: approximately 60 minutes Site of injection:Not available Images available for review: Skull base to mid thigh low-dose noncontrast CT scan, attenuation corrected and nonattenuation corrected PET scan over the same range COMPARISON: FDG PET/CT dated 02/12/2021 at [facility]. Correlation is made with CT chest dated 06/12/2024. FINDINGS: Direct quantitative comparison of FDG uptake to prior examination at outside hospital is difficult due to differences in technique. Therefore, quantification will be provided for the current examination and only qualitative statements will be made about changes in FDG uptake. HEAD AND NECK: No abnormal FDG uptake in the imaged portions of the head and neck. Bilateral lens replacements. CHEST: Ports and devices: None. Lungs: Prior left upper lobe wedge resection with no abnormal FDG uptake along the surgical margins. There is a 14 x 9 mm irregular right lower lobe nodule with mild FDG uptake, SUV max 1.9 (image 67), minimally increased in size compared to CT chest from 10/18/2023 when it measured 14 x 7 mm. This nodule demonstrated no significant FDG uptake and measured 8 x [address] from 02/12/2021. There is an FDG avid irregular 10 x 9 mm right upper lobe nodule with adjacent linear opacity, SUV max 5.3 (image 47), new since 02/12/2021. Previously noted FDG avid 12 x 11 mm right upper lobe nodule is not visualized, with residual linear opacity with low-level FDG uptake. Since CT from 10/18/2023, minimally increased size of a 4 mm right lower lobe nodule with minimal FDG uptake and peripheral groundglass opacity (image 61), previously 2 mm. There was mild groundglass opacity in this region on the prior PET/CT. Additional sub-6 mm pulmonary nodules too small to characterize on PET but without significant FDG uptake, for example, * 3 mm anterior right upper lobe nodule (image 44), unchanged since 2021 * 5 mm posterior right upper lobe nodule (image 49), decreased in size compared to 02/12/2021, previously 7 mm with central cavitation and mild uptake, likely infectious/inflammatory * 4 mm left upper lobe nodule (image 50), previously 1 to 2 mm * 3 mm yolie-fissural right middle lobe nodule (image 64), new since 2021 and may represent an intrapulmonary lymph node Severe upper lobe predominant emphysema. Pleura: No abnormal FDG uptake. Flattening of the diaphragm. Lymph Nodes: No abnormal FDG uptake. Mediastinum: No abnormal FDG uptake. Thoracic aortic and coronary artery calcifications. Breasts/Chest Wall: No abnormal FDG uptake. Increased AP diameter of the thoracic cavity, in keeping with COPD. ABDOMEN/PELVIS: Liver/biliary system: No abnormal FDG uptake. Pancreas: No abnormal FDG uptake. Spleen: No abnormal FDG uptake. Adrenal Glands: No abnormal FDG uptake. Kidneys: No abnormal FDG uptake. Bowel: No abnormal FDG uptake. Colonic diverticulosis. Mesentery, Omentum and Peritoneum: No abnormal FDG uptake. Atherosclerotic calcifications of the abdominal aorta and its major branch vessels. Infrarenal abdominal aorta aneurysm measuring up to 3.1 cm in AP dimension. Pelvic Organs: No abnormal FDG uptake. Lymph Nodes: No abnormal FDG uptake. MUSCULOSKELETAL: No abnormal FDG uptake to suggest malignancy. Multilevel degenerative change of the spine. Chronic appearing compression deformity of the L3 vertebral body with severe height loss. Procedure Note Raquel Roman MD - 10/07/2024 OUTSIDE STUDY SECOND OPINION CONSULTATION The imaging reviewed below has been performed at an outside institution.At the request of the patient's referring provider, we have been asked tointerpret examination(s) pertinent to [facility]. [facility] are not responsible for image quality,completeness of this examination, or accuracy of patient identity. OUTSIDE INSTITUTION: [facility] Main STUDY ACQUISITION DATE: 09/21/2024. STUDY INTERPRETATION DATE: 10/07/2024. Additional clinical information obtained from the EHR: 69-year-old female.History of non-small cell lung cancer status post left apical wedgeresection and COPD presenting for evaluation of right lower lobe nodule.Initial treatment strategy. TECHNICAL PARAMETERS QUALITY: Interpretable Radiopharmaceutical: F-18-FDG. Dose: 12.5 mCi. Blood glucose: 98 mg/dL. Time between injection and scanning: approximately 60 minutes Site of injection:Not available Images available for review: Skull base to mid thigh low-dose noncontrastCT scan, attenuation corrected and nonattenuation corrected PET scan overthe same range COMPARISON: FDG PET/CT dated 02/12/2021 at [facility].Correlation is made with CT chest dated 06/12/2024. FINDINGS: Direct quantitative [facility] is difficult due to differences in technique. Therefore,quantification will be provided for the current examination and onlyqualitative statements will be made about changes in FDG uptake. HEAD AND NECK: No abnormal FDG uptake in the imaged portions of the headand neck. Bilateral lens replacements. CHEST: Ports and devices: None. Lungs: Prior left upper lobe wedge resection with no abnormal FDG uptakealong the surgical margins. There is a 14 x 9 mm irregular right lowerlobe nodule with mild FDG uptake, SUV max 1.9 (image 67), minimallyincreased in size compared to CT chest from 10/18/2023 when it measured 14 x7 mm. This nodule demonstrated no significant FDG uptake and measured 8 x5 mm on PET CT from 02/12/2021. There is an FDG avid irregular 10 x 9 mm right upper lobe nodule withadjacent linear opacity, SUV max 5.3 (image 47), new since 02/12/2021.Previously noted FDG avid 12 x 11 mm right upper lobe nodule is notvisualized, with residual linear opacity with low-level FDG uptake. Since CT from 10/18/2023, minimally increased size of a 4 mm right lowerlobe nodule with minimal FDG uptake and peripheral groundglass opacity(image 61), previously 2 mm. There was mild groundglass opacity in thisregion on the prior PET/CT. Additional sub-6 mm pulmonary nodules too small to characterize on PET butwithout significant FDG uptake, for example, * 3 mm anterior right upper lobe nodule (image 44), unchanged [id number] * 5 mm posterior right upper lobe nodule (image 49), decreased in sizecompared to 02/12/2021, previously 7 mm with central cavitation and milduptake, likely infectious/inflammatory * 4 mm left upper lobe nodule (image 50), previously 1 to 2 mm * 3 mm yolie-fissural right middle lobe nodule (image 64), new since nd may represent an intrapulmonary lymph node Severe upper lobe predominant emphysema. Pleura: No abnormal FDG uptake. Flattening of the diaphragm. Lymph Nodes: No abnormal FDG uptake. Mediastinum: No abnormal FDG uptake. Thoracic aortic and coronary arterycalcifications. Breasts/Chest Wall: No abnormal FDG uptake. Increased AP diameter of thethoracic cavity, in keeping with COPD. ABDOMEN/PELVIS: Liver/biliary system: No abnormal FDG uptake. Pancreas: No abnormal FDG uptake. Spleen: No abnormal FDG uptake. Adrenal Glands: No abnormal FDG uptake. Kidneys: No abnormal FDG uptake. Bowel: No abnormal FDG uptake. Colonic diverticulosis. Mesentery, Omentum and Peritoneum: No abnormal FDG uptake. Atheroscleroticcalcifications of the abdominal aorta and its major branch vessels.Infrarenal abdominal aorta aneurysm measuring up to 3.1 cm in APdimension. Pelvic Organs: No abnormal FDG uptake. Lymph Nodes: No abnormal FDG uptake. MUSCULOSKELETAL: No abnormal FDG uptake to suggest malignancy. Multileveldegenerative change of the spine. Chronic appearing compression deformityof the L3 vertebral body with severe height loss. IMPRESSION: Compared to FDG PET/CT dated 02/12/2021: 1. Gradual increase in size of irregular right lower lobe nodule with newmild FDG uptake, may represent primary lung malignancy. 2. New irregular moderately FDG avid right upper lobe nodule withadjacent linear opacity, may represent malignancy orinfectious/inflammatory change. 3. Previously noted intensely avid right upper lobe nodule is notvisualized status post reportedly benign biopsy, with residual minimallyFDG avid linear opacity. 4. Decreased size of a 5 mm posterior right upper lobe nodule too smallto characterize on PET but without significant FDG uptake, previouslycavitary and mildly avid, likely infectious/inflammatory. 5. Additional too small to characterize sub-6 mm nodules, betterevaluated on prior CT. us Bharti Bustamante PA-C [facility] OUTSIDE IMAGING W/ INTER PRETATION Final Result [employer] [facility] [address] [place] [address] * NM PET CT Skull Base to Mid Thighs (09/21/2024 3:23 PM EDT) Anatomical Region Laterality Modality Positron Emissio n Tomography (PET) Narrative 09/21/2024 2:46 PM EDT WHIT PET IMAGING Stuart Smith MD [facility] [place] NM PET Final Result from Last 3 Months Insurance MEDICARE PART A & B [employer] MEDEX SUPPLEMENT MEDICARE PART A & B [employer] MED[employer] SUPPLEMENT MEDICARE PART A & B [facility] MEDEX SUPPLEMENT MEDICARE PART A & B [employer] MEDEX SUPPLEMENT MEDICARE PART A & [place] [employer] [place] [id number] MEDICARE PART A & B [employer] MED[employer] SUPPLEMENT MEDICARE PART A & B [employer] MEDEX SUPPLEMENT MEDICARE PART A & B [employer] SUPPLEMENT MEDICARE PART A & B [employer] SUPPLEMENT Advance Directives For more information, please contact: [phone] (9AM - 5PM [place], Wednesday-Wednesday) Documents on File Type Date Recorded Patient Telephone Service Representative Expl 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 09/09/2020 New Patient Information Consent form * Full Code (Latest Code Status on File) Date Activated Date Inactivated Comments 10/21/2020 9:17 PM Question Answer Comments Code Status Confirmed With: Patient Care Teams Hairspring Inspector Relationship Specialty Start Date End Date Jeremiah Kennedy MD [address] [place] [phone] PCP - General Family Medicine 08/29/20 Self-Referred, Patient 08/29/20 Stuart Smith MD [address] [place] [phone] [email or web address] Thoracic Surgery 09/06/20 Francis Salazar MD [address] [place] [phone] Internal Medicine 10/16/20 Additional Source Comments The information contained in this document represents components of the legal health record. It is not the complete legal health record.[facility]
--- OUTSIDE RECORDS SUMMARY | 2024-10-25 10:00 | XMS_ITS | Encounter Summary ---
Author Organization [facility] Address [address] [place] [phone] Phone Care Team Providers Care Special Education Resource Room Teacher Name Role Phone Jeremiah Kennedy MD Primary Care Provider + Self-Referred, Patient Unavailable Unavailab Stuart Luz MD Unavailable [phone] Francis Salazar MD Unavailable [phone] Encounter Details Date Type Department Care Team (Late st Contact Info) Description 07/23/2021 Procedure [facility] [address] [place] [address] Social History Tobacco Use Types Packs/Day Years [...] EDT Hospital Encounter [facility] [address] [place] [address] Vadim Joy MD, MPH [address] [place] [phone] [email or web address] documented as of this encounter Visit Diagnoses Not on filedocumented in this encounter Additional Health Concerns Assessment Noted Time PHQ-2 Depression Total Score: 0 02/16/19 23 10:21 AM EST documented as of this encounter Care Teams Special Education Resource Room Teacher Relationship Specialty Start Date End Date Jeremiah Kennedy MD [address] [place] [phone] PCP - General Family Medicine 08/29/20 Self-Referred, Patient 08/29/20 Stuart Smith MD [address] [place] [phone] [email or web address] Thoracic Surgery 09/06/20 [place] [address] [place] [address] Internal Medicine 10/16/20 documented as of this encounter Additional Source Comments The information contained in this document represents components of the legal health record. It is not the complete legal health record.[facility]
== END 2024-10-25 08:55 | disposition home or self-care (01) ==
LOC: HO.HOS 08:38
PROVIDERS: PCP Family Medicine; Visit Provider Orthopaedic Surgery
DX: M17.12 Unilateral primary osteoarthritis, left knee (principal)
CPT/HCPCS: 20610; 99213

== ENCOUNTER → 2024-10-25 08:37 | Outpatient (BNVA) | payer MEDICARE, SELFPAY | PROVIDERS: PCP Family Medicine; Visit Provider Orthopaedic Surgery | DX: M17.12 Unilateral primary osteoarthritis, left knee (principal) | CPT/HCPCS: 20610; 99212; J1010; J2003 ==

== ENCOUNTER 2025-01-24 13:07 | Outpatient (AMB) | payer MEDICARE, SELFPAY ==
--- NOTE | 2025-01-24 13:15 | A.OFFVIS_ITS ---
Vital Signs 01/24/25 13:20 Height 5 ft 2 in Weight 110 lb BMI 20.1 Intake Visit Reasons: Left knee pain Intake Note: Deb is a 69 year old female who presents with complaints of left knee pain. She describes her pain as sharp in nature. She has tried Tylenol and anti-inflammatory medicines which gave her minimal relief. She has had cortisone injections in the past which gave her good relief. She wishes to hold off on surgery if at all possible. Allergies tree nut (TREE NUT) Allergy (Intermediate, Verified 01/24/25 13:20) MOUTH TINGLING atorvastatin (Lipitor) Allergy (Unknown, Verified 01/24/25 13:20) Unknown ENVIRONMENTAL Allergy (Intermediate, Uncoded 01/24/25 13:20) NASAL CONGESTION Medication List - Last Reconciled 01/24/25 by Grant Albarado MD albuterol sulfate 90 mcg/actuation 2 puffs inhalation QID PRN cyanocobalamin (vitamin B-12) 1,000 mcg PO DAILY esomeprazole magnesium 20 mg PO DAILY mrhoxdwmfyi-luzgshucs-zigjshkj 100-62.5-25 mcg (Trelegy Ellipta) 1 ea inhalation DAILY Magic Mouthwash Diphen/Lido/Antacid 1:1:1 10 mL PO TID PRN 2 days rosuvastatin 1 tab PO MOTH PFSH Medical History Hyperlipidemia Non-tuberculous mycobacterial pneumonia Lung cancer COPD (chronic obstructive pulmonary disease) Surgical History Hx of nasal septoplasty Hx of colonoscopy History of esophagogastroduodenoscopy (EGD) History of pneumonectomy Social History Household Members: Family Housing: House Do you presently have visiting nurse or other home services: No Alcohol intake: current Alcohol intake frequency: a few times a week Alcohol type: hard liquor Patient Tobacco Use Status: Current everyday Tobacco user Tobacco use type: Cigarette e-Cigarette/Vaping Use: Never Used service: No Physical Exam Vital Signs: BMI result Body Mass Index 20.1 Extrem Other: Left knee examination shows a minimal effusion, palpable crepitus with range of motion, pain with range of motion, no instability Office Procedures AMB Joint Injection/Aspiration Joint Injection/Aspiration Primary Site: Left Knee Prep: site was prepped using aseptic technique Injected: 40 mg of, DepoMedrol, with 3 mL of and 1% plain Lidocaine Procedure: The patient tolerated the procedure well Coding - Large joint Procedure code (CPT) selection complete Results Reviewed Results Reviewed: X-rays of the patient's left knee taken previously show joint space narrowing, subchondral sclerosis, no acute bony abnormalities Assessment & Plan Assessment & Plan (1) Left knee pain: Code(s): M25.562 - Pain in left knee Category: Medical (2) Arthritis of left knee: Code(s): M17.12 - Unilateral primary osteoarthritis, left knee Category: Medical Plan Ms. Bar presents with left knee pain due to degenerative joint disease. The risks and benefits of a left knee cortisone injection were discussed at length with the patient. The patient wished proceed. She tolerated the injection well. She will continue with her home exercise program. She will contact me prior to her follow-up appointment in 3 months should any questions or concerns arise. Feel free to call me at any time should questions regarding her orthop edic management arise. I spent 22 minutes in reviewing the patient's records and imaging studies, seeing the patient and documenting in the medical record. Orders: Orders AMB Joint Injection/Aspiration Today M17.12 - Unilateral primary osteoarthritis, left knee Coding Level of Care Code Est Pt Level 3 (67710) Add On Problem Visit Only Diagnoses Left knee pain M25.562 Arthritis of left knee M17.12 CPT Codes Coding - Large joint: 28490 - Large joint ([id number])
[2025-01-24 13:20] VITALS: BMI 20.1
--- OUTSIDE RECORDS SUMMARY | 2025-01-24 17:18 | XMS_ITS | Encounter Summary ---
Author Organization [facility] Address [address] [place] [address] Phone Care Team Providers Care Metal Template Maker Name Role Phone Jeremiah Kennedy MD Primary Care Provider + Self-Referred, Patient Unavailable Unavailab Stuart Luz MD Unavailable [phone] Francis Salazar MD Unavailable [phone] Encounter Details Date Type Department Care Team (Late st Contact Info) Description 02/14/2021 Procedure Pass [facility] Periop [address] [place] [address] Social History Tobacco Use Types Packs/Day Years [...] Care Team (Late st Contact Info) Description 11/07/2024 Procedure Pass [facility] CT Imaging, [place] [address] [place] [address] 02/19/2025 10:15 AM EST Appointment [facility] CT Imaging, [place] [address] [place] [address] Stuart Smith MD [address] [place] [address] [email or web address] 02/19/2025 11:15 AM EST Office Visit [facility] [address] [place] [address] Stuart Smith MD [address] [place] [address] [email or web address] documented as of this encounter Visit Diagnoses [...] documented as of this encounter Care Teams Metal Template Maker Relationship Specialty Start Date End Date Jeremiah Kennedy MD [address] [place] [address] PCP - General Family Medicine 08/29/20 Self-Referred, Patient 08/29/20 Stuart Smith MD [address] [place] [address] [email or web address] Thoracic Surgery 09/06/20 Francis Salazar MD [address] [place] [address] Internal Medicine 10/16/20 documented as of this encounter Additional Source Comments The information contained in this document represents components of the legal health record. It is not the complete legal health record.[facility]
--- OUTSIDE RECORDS SUMMARY | 2025-01-24 17:18 | XMS_ITS | Encounter Summary ---
Author Organization [facility] Address [address] [place] [address] Phone Care Team Providers Care Sound Ranging Crewmember Name Role Phone Jeremiah Kennedy MD Primary Care Provider + Self-Referred, Patient Unavailable Unavailab Stuart Luz MD Unavailable [phone] Francis Salazar MD Unavailable [phone] Encounter Details Date Type Department Care Team (Late st Contact Info) Description 10/18/2023 Procedure Pass [facility] CT Imaging, [place] [address] [place], [place] [id number] Social History Tobacco Use Types Packs/Day Years [...] st Contact Info) Description 11/07/2024 Procedure Pass [facility] CT Imaging, [place] [address] [place] [address] 02/19/2025 10:15 AM EST Appointment [facility] CT Imaging, [place] [address] [place] [address] Stuart Smith MD [address] [place] [address] [email or web address] 02/19/2025 11:15 AM EST Office Visit [facility] [address] [place] [address] Stuart Smith MD [address] [place] [address] [email or web address] documented as of this encounter Visit Diagnoses Not on filedocumented in this encounter Additional Health Concerns Assessment Noted Time PHQ-2 Depression Total Score: 0 06/13/19 25 10:25 AM EDT documented as of this encounter Care Teams Sound Ranging Crewmember Relationship Specialty Start Date End Date Jeremiah Kennedy MD [address] [place], [place] [phone] PCP - General Family Medicine 08/29/20 Self-Referred, Patient 08/29/20 Stuart Smith MD [address] [place] [address] [email or web address] Thoracic Surgery 09/06/20 Francis Salazar MD [address] [place] [phone] (work) Internal Medicine 10/16/20 documented as of this encounter Additional Source Comments The information contained in this document represents components of the legal health record. It is not the complete legal health record.[facility]
--- OUTSIDE RECORDS SUMMARY | 2025-01-24 17:18 | XMS_ITS | Encounter Summary ---
Author Organization [facility] Address [facility] [employer] [address] [address] Phone Care Team Providers Care Fiber Optic Assembler Name Role Phone Jeremiah Kennedy MD Primary Care Provider + Self-Referred, Patient Unavailable Unavailab Stuart Luz MD Unavailable [phone] Francis Salazar MD Unavailable [phone] Encounter Details Date Type Department Care Team (Late st Contact Info) Description 10/21/2020 Procedure Pass [facility] Periop [address] [place] [address] Social History Tobacco Use Types Packs/Day Years [...] 11:29 PM EDT Jazmin Merritt, RN * [employer] Suicide Severity Rating Scale (Screener/Recent Self-Report) Question [...] st Contact Info) Description 11/07/2024 Procedure Pass [facility] CT Imaging, [address] [place] [address] 02/19/2025 10:15 AM EST Appointment [facility] CT Imaging, [place] [address] [place] [address] Stuart Smith MD [address] [place] [address] [email or web address] 02/19/2025 11:15 AM EST Office Visit [facility] [address] [place] [address] Stuart Smith MD [address] [place] [address] [email or web address] documented as of this encounter Visit Diagnoses Not on filedocumented in this encounter Additional Health Concerns Infection Onset Date Last Indicated Resolved Time CoV-Exposed Comment:Patient meets exposure criteria to a COVID+ HCW on 02/14/2021 02/14/2021 02/21/2021 1:24 AM EST CoV-Risk Comment:Per Ambulatory Triage Form 02/22/2021 02/23/202103/05 1:24 AM EST documented as of this encounter Care Teams Fiber Optic Assembler Relationship Specialty Start Date End Date Jeremiah Kennedy MD [address] [place] [address] PCP - General Family Medicine 08/29/20 Self-Referred, Patient 08/29/20 Stuart Smith MD [address] [place] [address] [email or web address] Thoracic Surgery 09/06/20 Francis Salazar MD [address] [place] [address] Internal Medicine 10/16/20 documented as of this encounter Additional Source Comments The information contained in this document represents components of the legal health record. It is not the complete legal health record.[facility]
--- OUTSIDE RECORDS SUMMARY | 2025-01-24 17:19 | XMS_ITS | Encounter Summary ---
Author Organization [facility] Address [address] [place] [address] Phone Care Team Providers Care Horse Rider Name Role Phone Jeremiah Kennedy MD Primary Care Provider + Self-Referred, Patient Unavailable Unavailab Stuart Luz MD Unavailable [phone] Francis Salazar MD Unavailable [phone] Encounter Details Date Type Department Care Team (Late st Contact Info) Description 06/23/2021 Procedure Pass [facility] 75 [place] [address] Social History Tobacco Use Types Packs/Day Years [...] st Contact Info) Description 11/07/2024 Procedure Pass [facility] CT Imaging, [place] [address] [place] [address] 02/19/2025 10:15 AM EST Appointment [facility] CT Imaging, [place] [address] [place] [address] Stuart Smith MD [address] [place] [address] [email or web address] 02/19/2025 11:15 AM EST Office Visit [facility] [address] [place] [address] Stuart Smith MD [address] [place] [address] [email or web address] documented as of this encounter Visit Diagnoses Not on filedocumented in this encounter Additional Health Concerns Assessment Noted Time PHQ-2 Depression Total Score: 0 01/28/20 10:08 AM EST documented as of this encounter Care Teams Horse Rider Relationship Specialty Start Date End Date Jeremiah Kennedy MD [address] [place] [address] PCP - General Family Medicine 08/29/20 Self-Referred, Patient 08/29/20 Stuart Smith MD [address] [place] [address] [email or web address] Thoracic Surgery 09/06/20 Francis Salazar MD [address] [place] [address] [address] [place] [address] Internal Medicine 10/16/20 documented as of this encounter Additional Source Comments The information contained in this document represents components of the legal health record. It is not the complete legal health record.[facility]
--- OUTSIDE RECORDS SUMMARY | 2025-01-24 17:19 | XMS_ITS | Encounter Summary ---
Author Organization [facility] Address [address] [place] [address] Phone Care Team Providers Care Museum Preparator Name Role Phone Jeremiah Kennedy MD Primary Care Provider + Self-Referred, Patient Unavailable Unavailab Stuart Luz MD Unavailable [phone] Francis Salazar MD Unavailable [phone] Encounter Details Date Type Department Care Team (Late st Contact Info) Description 10/16/2020 Prep for Surgery [facility] [address] [place] [address] [email or web address] Social History Tobacco Use Types Packs/Day Years [...] st Contact Info) Description 11/07/2024 Procedure Pass [facility] CT Imaging, [place] [address] [place] [address] 02/19/2025 10:15 AM EST Appointment [facility] CT Imaging, [place] [address] [place] [address] Stuart Smith MD [address] [place] [address] [email or web address] 02/19/2025 11:15 AM EST Office Visit [facility] [address] [place] [address] Stuart Smith MD [address] [place] [address] [email or web address] documented as of this encounter Visit Diagnoses Not on filedocumented in this encounter Additional Health Concerns Infection Onset Date Last Indicated Resolved Time CoV-Exposed Comment:Patient meets exposure criteria to a COVID+ HCW on 02/14/2021 02/14/2021 02/21/2021 1:24 AM EST CoV-Risk Comment:Per Ambulatory Triage Form 02/22/2021 02/23/202103/05 1:24 AM EST documented as of this encounter Care Teams Museum Preparator Relationship Specialty Start Date End Date Jeremiah Kennedy MD [address] [place] [address] PCP - General Family Medicine 08/29/20 Self-Referred, Patient 08/29/20 Stuart Smith MD [address] [place] [address] [email or web address] Thoracic Surgery 09/06/20 Francis Salazar MD [address] [place] [address] Internal Medicine 10/16/20 documented as of this encounter Additional Source Comments The information contained in this document represents components of the legal health record. It is not the complete legal health record.[facility]
--- OUTSIDE RECORDS SUMMARY | 2025-01-24 17:19 | XMS_ITS | Encounter Summary ---
Author Organization [facility] Address [address] [place] [address] Phone Care Team Providers Care Fuel Operator Name Role Phone Jeremiah Kennedy MD Primary Care Provider + Self-Referred, Patient Unavailable Unavailab Stuart Luz MD Unavailable [phone] Francis Salazar MD Unavailable Encounter Details Date Type Department Care Team (Late st Contact Info) Description 02/16/2022 Procedure Pass [facility] 70 [place] [address] Social History Tobacco Use Types Packs/Day Years [...] Department Care Team (Late Contact Info) Description 11/07/2024 Procedure Pass [facility] CT Imaging, [place] [address] [place] [address] 02/19/2025 10:15 AM EST Appointment [facility] CT Imaging, [place] [address] [place] [address] Stuart Smith MD [address] [place] [address] [email or web address] 02/19/2025 11:15 AM EST Office Visit [facility] [address] [place] [address] Stuart Smith MD [address] [place] [address] [email or web address] documented as of this encounter Visit Diagnoses Not on filedocumented in this encounter Additional Health Concerns Assessment Noted Time PHQ-2 Depression Total Score: 0 02/16/19 23 10:21 AM EST documented as of this encounter Care Teams Fuel Operator Relationship Specialty Start Date End Date Jeremiah Kennedy MD [address] [place] [address] PCP - General Family Medicine 08/29/20 Self-Referred, Patient 08/29/20 Stuart Smith MD [address] [place] [address] [email or web address] Thoracic Surgery 09/06/20 Francis Salazar MD [address] [place] [address] Internal Medicine 10/16/20 documented as of this encounter Additional Source Comments The information contained in this document represents components of the legal health record. It is not the complete legal health record.[facility]
--- OUTSIDE RECORDS SUMMARY | 2025-01-24 17:19 | XMS_ITS | Encounter Summary ---
Author Organization [facility] Address [facility] [employer] [facility] [address] [place] [address] Phone Care Team Providers Care Low Pressure Boiler Tender Name Role Phone Jeremiah Kennedy MD Primary Care Provider + Self-Referred, Patient Unavailable Unavailab Stuart Luz MD Unavailable [phone] Francis Salazar MD Unavailable [phone] Encounter Details Date Type Department Care Team (Late st Contact Info) Description 09/14/2022 Procedure Pass [facility] 75 [place] [address] Social History Tobacco Use Types Packs/Day Years [...] st Contact Info) Description 11/07/2024 Procedure Pass [facility] CT Imaging, [place] [address] [place] [address] 02/19/2025 10:15 AM EST Appointment [facility] CT Imaging, [place] [address] [place] [address] Stuart Smith MD 75 [place] [address] [email or web address] 02/19/2025 11:15 AM EST Office Visit [facility] [address] [place] [address] Stuart Smith MD [address] [place] [address] [email or web address] documented as of this encounter Visit Diagnoses Not on filedocumented in this encounter Additional Health Concerns Assessment Noted Time PHQ-2 Depression Total Score: 0 03/22/19 24 9:18 AM EST documented as of this encounter Care Teams Low Pressure Boiler Tender Relationship Specialty Start Date End Date Jeremiah Kennedy MD [address] [place] [address] PCP - General Family Medicine 08/29/20 Self-Referred, Patient 08/29/20 Stuart Smith MD [address] [place] [address] [email or web address] Thoracic Surgery 09/06/20 Francis Salazar MD [address] [place] [address] Internal Medicine 10/16/20 documented as of this encounter Additional Source Comments The information contained in this document represents components of the legal health record. It is not the complete legal health record.[facility]
--- OUTSIDE RECORDS SUMMARY | 2025-01-24 17:19 | XMS_ITS | Encounter Summary ---
Author Organization [facility] Address [address] [place] [address] [place] [address] Phone Care Team Providers Care Materials Specialist Name Role Phone Jeremiah Kennedy MD Primary Care Provider + Self-Referred, Patient Unavailable Unavailab Stuart Luz MD Unavailable [phone] Francis Salazar MD Unavailable Encounter Details Date Type Department Care Team (Late st Contact Info) Description 10/28/2020 Procedure Pass [facility] 75 [place] [address] Social History Tobacco Use Types Packs/Day Years [...] (Late Contact Info) Description 11/07/[address] [facility] CT Imaging, [place] [address] [place] [address] 02/19/2025 10:[address] [facility] CT Imaging, [place] [address] [place] [address] Stuart Smith MD [address] [place] [address] [email or web address] 02/19/2025 11:15 AM EST Office Visit [facility] 15 [place] [address] Stuart Smith MD [address] [place] [address] [email or web address] documented as of this encounter Visit [...] documented as of this encounter Care Teams Materials Specialist Relationship Specialty Start Date End Date Jeremiah Kennedy MD [address] [place] [address] PCP - General Family Medicine 08/29/20 Self-Referred, Patient 08/29/20 Stuart Smith MD [address] [place] [address] [email or web address] Thoracic Surgery 09/06/20 Francis Salazar MD [address] [place] [address] Internal Medicine 10/16/20 documented as of this encounter Additional Source Comments The information contained in this document represents components of the legal health record. It is not the complete legal health record.[facility]
--- OUTSIDE RECORDS SUMMARY | 2025-01-24 17:19 | XMS_ITS | Encounter Summary ---
Author Organization [facility] Address [address] [place] [address] Phone Care Team Providers Care Child Welfare Caseworker Name Role Phone Jeremiah Kennedy MD Primary Care Provider + Self-Referred, Patient Unavailable Unavailab Stuart Lzu MD Unavailable [phone] Francis Salazar MD Unavailable [phone] Encounter Details Date Type Department Care Team (Late st Contact Info) Description 07/23/2021 Procedure Pass [facility] [address] [place] [address] Social History Tobacco Use Types Packs/Day Years [...] (Late Contact Info) Description 11/07/2024 Procedure Pass [facility] CT Imaging, [place] [address] [place] [address] 02/19/2025 10:15 AM EST Appointment [facility] CT Imaging, [place] [address] [place] [address] Stuart Smith MD [address] [place] [address] [email or web address] 02/19/2025 11:15 AM EST Office Visit [facility] [address] [place] [address] Stuart Smith MD [address] [place] [address] [email or web address] documented as of this encounter Visit Diagnoses Not on filedocumented in this encounter Additional Health Concerns Assessment Noted Time PHQ-2 Depression Total Score: 0 02/16/19 23 10:21 AM EST documented as of this encounter Care Teams Child Welfare Caseworker Relationship Specialty Start Date End Date Jeremiah Kennedy MD [address] [place] [address] PCP - General Family Medicine 08/29/20 Self-Referred, Patient 08/29/20 Stuart Smith MD [address] [place] [address] [email or web address] Thoracic Surgery 09/06/20 Francis Salazar MD [address] [place] [address] Internal Medicine 10/16/20 documented as of this encounter Additional Source Comments The information contained in this document represents components of the legal health record. It is not the complete legal health record.[facility]
--- OUTSIDE RECORDS SUMMARY | 2025-01-24 17:19 | XMS_ITS | Encounter Summary ---
Author Organization [facility] Address [address] [place] [address] Phone Care Team Providers Care Corporate Librarian Name Role Phone Jeremiah Kennedy MD Primary Care Provider + Self-Referred, Patient Unavailable Unavailab le Stuart Smith MD Unavailable [phone] Francis Salazar MD Unavailable [phone] Reason for Referral * MRI/CAT Scan - Closed Specialty Diagnoses / Procedures Referred By Roberta t Referred To Contact Radiology Diagnoses Lung mass Procedures NM Lung Perfusion Differential Quantification NM Lung Perfusion and Ventilation Differential Quantification Stuart Smith MD Phone: tel: fax: mailto:[email or web address] Referral ID Status Reason Start Date Expiration Date Visits Re quested Visits Authorized [id number] Closed 09/09/2020 09/09/2021 1 1 Encounter Details Date Type Department Care Team (Late st Contact Info) Description 09/16/2020 Ancillary Orders [facility] 204 [place] [address] Stuart Smith MD [address] [place] [address] [email or web address] Lung mass Social History Tobacco Use [...] st Contact Info) Description 11/07/2024 Procedure Pass [facility] CT Imaging, [place] [address] [place] [address] 02/19/2025 10:15 AM EST Appointment [facility] CT Imaging, [place] [address] [place] [address] Stuart Smith MD [address] [place] [address] [email or web address] 02/19/2025 11:15 AM EST Office Visit [facility] [address] [place] [address] Stuart Smith MD [address] [place] [address] [email or web address] documented as of this encounter Results * [...] created by Cristopher Murray. Stuart Smith MD [facility] LUNG SCAN Final Result documented in [...] documented as of this encounter Care Teams Corporate Librarian Relationship Specialty Start Date End Date Jeremiah Kennedy MD [address] [place] [address] PCP - General Family Medicine 08/29/20 Self-Referred, Patient 08/29/20 Stuart Smith MD [address] [place] [address] [email or web address] Thoracic Surgery 09/06/20 Francis Salazar MD [address] [place] [address] Internal Medicine 10/16/20 documented as of this encounter Additional Source Comments The information contained in this document represents components of the legal health record. It is not the complete legal health record.[facility]
--- OUTSIDE RECORDS SUMMARY | 2025-01-24 17:19 | XMS_ITS | Encounter Summary ---
Author Organization [facility] Address [address] [place] [address] Phone Care Team Providers Care Shopfitter Name Role Phone Jeremiah Kennedy MD Primary Care Provider + Self-Referred, Patient Unavailable Unavailab Stuart Luz MD Unavailable [phone] Francis Salazar MD Unavailable [phone] Encounter Details Date Type Department Care Team (Late st Contact Info) Description 06/23/2021 Procedure Pass [facility] Periop [address] [place] [address] Social History Tobacco Use Types Packs/Day Years [...] st Contact Info) Description 11/07/2024 Procedure Pass [facility] CT Imaging, [address] [place] [address] 02/19/2025 10:15 AM EST Appointment [facility] CT Imaging, [address] [place] [address] Stuart Smith MD [address] [place] [address] [email or web address] 02/19/2025 11:15 AM EST Office Visit [facility] [address] [place] [address] Stuart Smith MD [address] [place] [address] [email or web address] documented as of this encounter Visit Diagnoses Not on filedocumented in this encounter Additional Health Concerns Assessment Noted Time PHQ-2 Depression Total Score: 0 01/28/20 10:08 AM EST documented as of this encounter Care Teams Shopfitter Relationship Specialty Start Date End Date Jeremiah Kennedy MD [address] [place] [address] PCP - General Family Medicine 08/29/20 Self-Referred, Patient 08/29/20 Stuart Smith MD [address] [place] [address] [email or web address] Thoracic Surgery 09/06/20 Francis Salazar MD [address] [place] [address] Internal Medicine 10/16/20 documented as of this encounter Additional Source Comments The information contained in this document represents components of the legal health record. It is not the complete legal health record.[facility]
--- OUTSIDE RECORDS SUMMARY | 2025-01-24 17:19 | XMS_ITS | Encounter Summary ---
Author Organization [facility] Address [address] [place] [address] Phone Care Team Providers Care J2Ee Programmer Name Role Phone Jeremiah Kennedy MD Primary Care Provider + Self-Referred, Patient Unavailable Unavailab Stuart Luz MD Unavailable [phone] Francis Salazar MD Unavailable [phone] Encounter Details Date Type Department Care Team (Late st Contact Info) Description 03/22/2023 Procedure Pass [facility] CT Imaging, [address] [place] [address] Social History Tobacco Use Types Packs/Day Years [...] st Contact Info) Description 11/07/2024 Procedure Pass [facility] CT Imaging, [address] [place] [address] 02/19/2025 10:15 AM EST Appointment [facility] CT Imaging, [address] [place] [address] Stuart Smith MD [address] [place] [address] [email or web address] 02/19/2025 11:15 AM EST Office Visit [facility] [address] [place] [address] Stuart Smith MD [address] [place] [address] [email or web address] documented as of this encounter Visit Diagnoses Not on filedocumented in this encounter Additional Health Concerns Assessment Noted Time PHQ-2 Depression Total Score: 0 10/18/19 24 11:36 AM EDT documented as of this encounter Care Teams J2Ee Programmer Relationship Specialty Start Date End Date Jeremiah Kennedy MD [address] [place], [place] [phone] PCP - General Family Medicine 08/29/20 Self-Referred, Patient 08/29/20 Stuart Smith MD [address] [place] [address] [email or web address] Thoracic Surgery 09/06/20 Francis Salazar MD [address] [place] [phone] (work) Internal Medicine 10/16/20 documented as of this encounter Additional Source Comments The information contained in this document represents components of the legal health record. It is not the complete legal health record.[facility]
--- OUTSIDE RECORDS SUMMARY | 2025-01-24 17:19 | XMS_ITS | Encounter Summary ---
Author Organization [facility] Address [address] [place] [address] [place] [address] Phone Care Team Providers Care Chef Teacher Name Role Phone Jeremiah Kennedy MD Primary Care Provider + Self-Referred, Patient Unavailable Unavailab Stuart Luz MD Unavailable [phone] Francis Salazar MD Unavailable [phone] Encounter Details Date Type Department Care Team (Late st Contact Info) Description 10/16/2020 Procedure Pass [facility] Rad[facility] [address] [place] [address] Social History Tobacco Use Types Packs/Day Years [...] (Late Contact Info) Description 11/07/2024 Procedure Pass [facility] CT Imaging, [address] [place] [address] 02/19/2025 10:15 AM EST Appointment [facility] CT Imaging, [address] [place] [address] Stuart Smith MD [address] [place] [address] [email or web address] 02/19/2025 11:15 AM EST Office Visit [facility] [address] [place] [address] Stuart Smith MD [address] [place] [address] [email or web address] documented as of this encounter Visit Diagnoses Not on filedocumented in this encounter Additional Health Concerns Infection Onset Date Last Indicated Resolved Time CoV-Exposed Comment:Patient meets exposure criteria to a COVID+ HCW on 02/14/2021 02/14/2021 02/21/2021 1:24 AM EST CoV-Risk Comment:Per Ambulatory Triage Form 02/22/2021 02/23/202103/05 1:24 AM EST documented as of this encounter Care Teams Chef Teacher Relationship Specialty Start Date End Date Jeremiah Kennedy MD [address] [place] [phone] PCP - General Family Medicine 08/29/20 Self-Referred, Patient 08/29/20 Stuart Smith MD [address] [place] [address] [email or web address] Thoracic Surgery 09/06/20 Francis Salazar MD [address] [place] [address] Internal Medicine 10/16/20 documented as of this encounter Additional Source Comments The information contained in this document represents components of the legal health record. It is not the complete legal health record.[facility]
--- OUTSIDE RECORDS SUMMARY | 2025-01-24 17:19 | XMS_ITS | Encounter Summary ---
Author Organization [facility] Address [address] [place] [address] Phone Care Team Providers Care Lumber Straightener Name Role Phone Jeremiah Kennedy MD Primary Care Provider + Self-Referred, Patient Unavailable Unavailab Stuart Luz MD Unavailable [phone] Francis Salazar MD Unavailable [phone] Encounter Details Date Type Department Care Team (Late st Contact Info) Description 09/09/2020 Procedure Pass [facility] [address] [place] [address] Social History Tobacco Use Types Packs/Day Years [...] (Late Contact Info) Description 11/07/2024 Procedure Pass [facility] CT Imaging, [address] [place] [address] 02/19/2025 10:15 AM EST Appointment [facility] CT Imaging, [address] [place] [address] Stuart Smith MD [address] [place] [address] [email or web address] 02/19/2025 11:15 AM EST Office Visit [facility] [address] [place] [address] Stuart Smith MD [address] [place] [address] [email or web address] documented as of this encounter Visit Diagnoses Not on filedocumented in this encounter Additional Health Concerns Infection Onset Date Last Indicated Resolved Time CoV-Exposed Comment:Patient meets exposure criteria to a COVID+ HCW on 02/14/2021 02/14/2021 02/21/2021 1:24 AM EST CoV-Risk Comment:Per Ambulatory Triage Form 02/22/2021 02/23/202103/05 1:24 AM EST documented as of this encounter Care Teams Lumber Straightener Relationship Specialty Start Date End Date Jeremiah Kennedy MD [address] [place] [address] PCP - General Family Medicine 08/29/20 Self-Referred, Patient 08/29/20 Stuart Smith MD [address] [place] [address] [email or web address] Thoracic Surgery 09/06/20 Francis Salazar MD [address] [place] [phone] Internal Medicine 10/16/20 documented as of this encounter Additional Source Comments The information contained in this document represents components of the legal health record. It is not the complete legal health record.[facility]
--- OUTSIDE RECORDS SUMMARY | 2025-01-24 17:19 | XMS_ITS | Encounter Summary ---
Author Organization [facility] Address [address] [place] [address] Phone Care Team Providers Care Stroke Coordinator Name Role Phone Jeremiah Kennedy MD Primary Care Provider + Self-Referred, Patient Unavailable Unavailab Stuart Luz MD Unavailable [phone] Francis Salazar MD Unavailable [phone] Encounter Details Date Type Department Care Team (Late st Contact Info) Description 06/10/2021 Procedure Pass [facility] [address] [place] [address] Social History Tobacco Use Types Packs/Day Years [...] (Late Contact Info) Description 11/07/2024 Procedure Pass [facility] CT Imaging, [address] [place] [address] 02/19/2025 10:15 AM EST Appointment [facility] CT Imaging, [address] [place] [address] Stuart Smith MD [address] [place] [address] [email or web address] 02/19/2025 11:15 AM EST Office Visit [facility] [address] [place] [phone] Stuart Smith MD [address] [place] [address] [email or web address] documented as of this encounter Visit Diagnoses Not on filedocumented in this encounter Additional Health Concerns Assessment Noted Time PHQ-2 Depression Total Score: 0 01/28/20 10:08 AM EST documented as of this encounter Care Teams Stroke Coordinator Relationship Specialty Start Date End Date Jeremiah Kennedy MD [address] [place] [address] PCP - General Family Medicine 08/29/20 Self-Referred, Patient 08/29/20 Stuart Smith MD [address] [place] [address] [email or web address] Thoracic Surgery 09/06/20 Francis Salazar MD [address] [place] [phone] Internal Medicine 10/16/20 documented as of this encounter Additional Source Comments The information contained in this document represents components of the legal health record. It is not the complete legal health record.[facility]
--- OUTSIDE RECORDS SUMMARY | 2025-01-24 17:19 | XMS_ITS | Encounter Summary ---
Author Organization [facility] Address [address] [place] [address] Phone Care Team Providers Care V Belt Builder Name Role Phone Jeremiah Kennedy MD Primary Care Provider + Self-Referred, Patient Unavailable Unavailab Stuart Luz MD Unavailable [phone] Francis Salazar MD Unavailable [phone] Reason for Visit * Reason Comments Medication Refill Encounter Details Date Type Department Care Team (Late st Contact Info) Description 12/08/2022 Refill [facility] [address] [place] [address] Nissa Brown, MANNY [address] [place] [phone] [email or web address] u Medication Refill Social History Tobacco Use [...] st Contact Info) Description 11/07/2024 Procedure Pass [facility] CT Imaging, [address] [place] [address] 02/19/2025 10:15 AM EST Appointment [facility] CT Imaging, [address] [place] [address] Stuart Smith MD [address] [place] [address] [email or web address] 02/19/2025 11:15 AM EST Office Visit [facility] [address] [place] [address] Stuart Smith MD [address] [place] [address] [email or web address] documented as of this encounter Visit Diagnoses Not on filedocumented in this encounter Additional Health Concerns Assessment Noted Time PHQ-2 Depression Total Score: 0 02/16/19 23 10:21 AM EST documented as of this encounter Care Teams V Belt Builder Relationship Specialty Start Date End Date Jeremiah Kennedy MD [address] [place] [address] PCP - General Family Medicine 08/29/20 Self-Referred, Patient 08/29/20 Stuart Smith MD [address] [place] [address] [email or web address] Thoracic Surgery 09/06/20 Francis Salazar MD [address] [place] [address] Internal Medicine 10/16/20 documented as of this encounter Additional Source Comments The information contained in this document represents components of the legal health record. It is not the complete legal health record.[facility]
--- OUTSIDE RECORDS SUMMARY | 2025-01-24 17:19 | XMS_ITS | Clinical Summary ---
Author Organization [facility] Address [address] [place] [address] Phone Care Team Providers Care Inside Phone Sales Name Role Phone Jeremiah Kennedy MD Primary Care Provider + Self-Referred, Patient Unavailable Unavailab Stuart Luz MD Unavailable [phone] Francis Salazar MD Unavailable [phone] Allergies Active Allergy Reactions Criticality Noted Date Comments Erythromycin Rash Low 09/04/2020 Atorvastatin Unknown 09/04/2020 LFT's elevated Fish Derived Rash Low 09/04/2020 Medications tiotropium (SPIRIVA HANDIHALER) 18 mcg inhalation capsule Inhale 18 mcg into the lungs as needed. Active ethambutoL (MYAMBUTOL) 400 MG tablet Take 4 tablets (1,600 mg total) by mouth 3 (three) times a week. 56 tablet 11 2 Active albuterol 90 mcg/actuation inhaler Inhale 2 puffs into the lungs every 4 (four) hours as needed for wheezing or shortness of breath/dyspnea . 18 g 4 5 Active azithromycin (ZITHROMAX) 500 MG tablet Take 1 tablet (500 mg total) by mouth 3 (three) times a week on Wednesday, Wednesday, Wednesday. Take for traveller's diarrhea 14 tablet 11 5 Active fluticasone-ume clidin-vilanter (TRELEGY ELLIPTA) 100-62.5-25 mcg inhalation powder Inhale 1 puff into the lungs daily. 60 each 2 5 01/29/20 25 Active Active Problems Problem Noted Date Diagnosed [...] Encounters Date Type Department Care Team Description 12/14/2024 12:30 PM EST - 12/14/2024 11:59 PM EST Hospital Encounter [facility] [address] [place] [address] Vadim Joy MD, MPH Discharge Disposition: Home or Self Care 11/07/2024 Orders Only [facility] [address] [place] [address] Dorota Dawkins Lung nodule (Primary Dx) from Last 3 Months Immunizations Immunization Administration [...] [facility] Imaging, [address] [place] [address] 02/19/2025 10:15 AM EST Appointment [facility] CT Imaging, [address] [place] [address] Stuart Smith MD [address] [place] [address] [email or web address] 02/19/2025 11:15 AM EST Office Visit [facility] [address] [place] [address] Stuart Smith MD [address] [place] [phone] (work) [email or web address] Health Maintenance Due Date Last Done Comments HEPATITIS C SCREENING 1972 ZOSTER VACCINES (1 of 2) 1973 MAMMOGRAM 1994 COLOGUARD 04/17/1999 COLONOSCOPY 04/17/1999 COLORECTAL CANCER SCREENING 04/17/1999 FIT TEST 04/17/1999 FOBT 04/17/1999 SIGMOIDOSCOPY 04/17/1999 VIRTUAL COLONOSCOPY 04/17/1999 RSV VACCINE (1 - Risk 50-74 years 1-dose series) 2004 OSTEOPOROSIS SCREENING INITIAL (ONE-TIME) 04/17/2019 PNEUMOCOCCAL VACCINES (50+ years) (3 of 3 - PCV20 or PCV21) 10/24/2019 08/29/2019, 12/23/2010 INFLUENZA VACCINE (#1) 2024 3, 12/12/2020, 11/17/2019, Additional history exists COVID-19 VACCINE [...] Procedure Name Priority Date/Time Associated Diagnosis Comments PULMONARY FUNCTION TEST Routine 12/14/2024 1:55 PM EST Centrilobular emphysema from Last 3 Months Results * Pulmonary Function Test Reason for Exam: COPD, Dyspnea/Shortness of Breath; Type of PFT Test: Spirometry with bronchodilator, DLCO, Lung Volumes; Performing Location: [facility] (12/14/2024 1:55 PM EST) FEV1 0.69 liters FVC 2.37 liters FEV1/FVC 29 % TLC 8.20 liters DLCO 8.57 ml/mmHg sec Anatomical Region Laterality Modality Other Impressions 12/14/2024 1:55 PM EST PULMONARY FUNCTION STUDIES Full pulmonary function studies were performed on this 69 y.o. year-old female for evaluation of severe COPD. Review of the medical record reveals that the patient is a current smoker. Prior pulmonary function studies are not available for comparison. SPIROMETRY: The FEV1 is moderately impaired (z-score between -2.51 and -4.0) at 0.56 L or 30% predicted. The FVC is normal at 1.77 L or 74% predicted. The FEV1/FVC ratio is impaired (<5th percentile) at 32%. After the administration of a bronchodilator agent, there is a significant improvement in FVC (>10% relative to the predicted value). FLOW-VOLUME LOOPS: Evaluation of the flow-volume loops reveals normal morphology of the inspiratory limb with scooping of the expiratory limb and SEVERE blunting of the peak expiratory flows in keeping with the patient's obstructive lung disease. LUNG VOLUME MEASUREMENTS BY PLETHYSMOGRAPHY: The total lung capacity is elevated (>95th percentile) at 8.20 L or 184% predicted. The RV/TLC ratio is elevated (>95th percentile) at 74%. DIFFUSION CAPACITY: The diffusion capacity is severely impaired (z-score <-4.1) at 8.57 mL/mmHg sec or 49% predicted. COMPARISON TO PRIOR STUDIES: none available. Resting oxygen saturation is 99% on room air. IMPRESSION: Abnormal pulmonary function studies with evidence for moderate to severe airflow obstruction with improvement in FVC alone following bronchodilator administration. There is severe hyperinflation with air trapping with a moderate decrease in diffusion capacity. These findings would be consistent with a diagnosis of severe COPD. Clinical and radiographic correlation advised. 6-MINUTE DISTANCE WALK A standard 6-minute distance walk was performed according to ATS criteria on this 69 y.o. year-old female for evaluation of COPD with the patient breathing room air. At rest, the oxygen saturation was 97% with a heart rate of 76 bpm and a respiratory dyspnea index of 0 on a scale from 0 to 10. Resting blood pressure 110/68 During ambulation, the oxygen saturation reached a etienne of 96%, the heart rate increased physiologically to a maximum of 108 bpm and the respiratory dyspnea index reached a maximum of 3. After one minute of recovery, the oxygen saturation was 97%, the hear rate was 92 bpm and the respiratory dyspnea index was 2. The patient ambulated 1195 feet or 364 meters, which is normal. There was no report chest pain, light-headedness or leg pain during the study. IMPRESSION: Normal 6-minute distance walk study as evidenced by a normal walk distance, no ambulatory desaturations, a physiologic increase in heart rate with exercise and an increase in the respiratory dyspnea index with exercise. No priors available for comparison. Technical Note: As of 12/21/2023, the [facility] Pulmonary Function Testing (PFT) Laboratory transitioned from using race-specific to using race-neutral equations for determining lung function predicted values for all persons. Due to this change some individuals previously classified as either normal or abnormal may now change from one to the other category without a true change in lung function. Such changes, as well as changes in severity classification, should be considered broadly and in their clinical context. Absolute values of lung function are unaffected. For further questions please contact the interpreting physician or PFT animal laboratory helper. For further discussion of this issue please see Davidson et al [facility] 2022;207(8):[id number]. Please Note: Not all PFT labs within, or outside of, our system will be transitioning to new reference equations at the same time. For this reason, please pay close attention to absolute values when comparing results done at different testing locations within or outside of our system. us Vadim Joy MD, MPH PFT ORDERABLES Final Resu lt from Last 3 Months Insurance MEDICARE PART A & B [employer] SUPPLEMENT MEDICARE PART A & B [employer] SUPPLEMENT MEDICARE PART A & B [employer] SUPPLEMENT MEDICARE PART A & B [employer] SUPPLEMENT MEDICARE PART A & B [employer] SUPPLEMENT MEDICARE PART A & B [employer] MEDEX SUPPLEMENT MEDICARE PART A & B [facility] MEDEX SUPPLEMENT MEDICARE PART A & B [employer] MED[employer] SUPPLEMENT MEDICARE PART A & B [employer] MEDEX SUPPLEMENT Advance Directives For more information, please contact: [phone] (9AM - 5PM Eva/[facility], Wednesday-Wednesday) Documents on File Type Date Recorded Patient 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 09/09/2020 New Patient Information Consent form * Full Code (Latest Code Status on File) Date Activated Date Inactivated Comments 10/21/2020 9:17 PM Question Answer Comments Code Status Confirmed With: Patient Care Teams Inside Phone Sales Relationship Specialty Start Date End Date Jeremiah Kennedy MD [address] [place] [address] PCP - General Family Medicine 08/29/20 Self-Referred, Patient 08/29/20 Stuart Smith MD [address] [place] [address] [email or web address] Thoracic Surgery 09/06/20 Francis Salazar MD [address] [place] [address] Internal Medicine 10/16/20 Additional Source Comments The information contained in this document represents components of the legal health record. It is not the complete legal health record.[facility]
== END 2025-01-24 13:32 | disposition home or self-care (01) ==
LOC: HO.HOS 13:08
PROVIDERS: PCP Family Medicine; Visit Provider Orthopaedic Surgery
DX: M25.562 Pain in left knee (principal); M17.12 Unilateral primary osteoarthritis, left knee
CPT/HCPCS: 20610; 99213

== ENCOUNTER → 2025-01-24 13:07 | Outpatient (BNVA) | payer MEDICARE, SELFPAY | PROVIDERS: PCP Family Medicine; Visit Provider Orthopaedic Surgery | DX: M17.12 Unilateral primary osteoarthritis, left knee (principal); M25.562 Pain in left knee | CPT/HCPCS: 20610; 99212; J1010; J2003 ==

== ENCOUNTER 2025-02-05 19:09 | Emergency (ER) | payer MEDICARE, SELFPAY ==
--- NOTE | ~2025-02-05 | CT_ITS ---
CLINICAL HISTORY: Fall CT cervical spine without contrast Comparison: None provided Findings: Normal vertebral body alignment. Minimal multilevel degenerative change. No acute fractures or dislocations. No acute findings on limited view of the intracranial contents. No cervical fluid collections or masses. Severe emphysematous changes at the lung apices. IMPRESSION: No acute findings. This document has been electronically signed by: Denise Eric MD on 02/06/2025 00:31:02
--- NOTE | ~2025-02-05 | CT_ITS ---
CLINICAL HISTORY: LT HIP PAIN - LT FLANK PAIN CT abdomen and pelvis without contrast Comparison: CT/MT/SR - CT ABDOMEN PELVIS WITH IV CONTRAST - 06/02/22 16:52 EDT Findings: There is centrilobular emphysema. A small nonobstructing calculus is seen in the midpole of the right kidney. Several small nonobstructing calculi are seen on the left. There is no evidence of obstructive uropathy. No bowel obstruction, pneumoperitoneum, or pneumatosis. There is relative aneurysmal dilatation of the infrarenal abdominal aorta now measuring up to 3 cm in greatest diameter. There are severe calcific atherosclerotic changes of the abdominal aorta and iliac arteries. Pelvic contents unremarkable. Normal appendix. There is a compression fracture at L3 with increased compression relative to the prior CT scan from 2022. IMPRESSION: 1. Nephrolithiasis without obstructive uropathy. 2. Infrarenal abdominal aortic aneurysm measuring up to 3 cm in greatest diameter. 3. Chronic severe compression fracture of L3 with increased compression relative to the prior study. This document has been electronically signed by: Alvin Aquino MD on 02/06/2025 07:45:38
--- NOTE | ~2025-02-05 | XR_ITS ---
CLINICAL HISTORY: pain, injury 4 view right shoulder Comparison: None provided Findings: There is mild angulation and cortical irregularity of the distal clavicle. Small calcific density adjacent to the humeral head, may represent calcific tendinitis. No erosions. No radiopaque foreign body. IMPRESSION: 1. Suspect mildly angulated fracture of the distal clavicle. Correlate with point tenderness. This document has been electronically signed by: Denise Eric MD on 02/05/2025 21:09:20
--- NOTE | ~2025-02-05 | CT_ITS ---
CLINICAL HISTORY: Fall CT head without contrast Comparison: CT/KS/SR - CT HEAD WITHOUT IV CONTRAST - 06/02/22 16:47 EDT Findings: BRAIN: No acute infarct, hemorrhage, or mass effect. Scattered periventricular/deep white matter hypodensities, nonspecific, however may represent chronic microvascular ischemic disease. CSF SPACES: No hydrocephalus or effacement of basal cisterns. SKULL: No calvarial fracture. SINUSES: No significant mucosal thickening or effusion on limited views. ORBITS: Limited views are unremarkable. OTHER: Negative. IMPRESSION: 1. No acute intracranial findings. This document has been electronically signed by: Denise Eric MD on 02/06/2025 01:45:21
[2025-02-05 19:17] VITALS: BP 154/96; PULSE 56; O2SAT 96
[2025-02-05 19:20] VITALS: BP 122/56; PULSE 69; RESP 18; TEMP 36.4; O2SAT 93; BMI 21.0
[2025-02-05 19:27] VITALS: BP 122/56; PULSE 69; RESP 18; TEMP 36.4; O2SAT 93
--- NOTE | 2025-02-05 19:30 | PC.NURSE ---
Pt a&ox3, no signs of distress Pt reports drinking 3 glasses of wine and walking upstairs for bed and falling backwards down 3 steps Pt denies headstrike, loc, thinners, and reports 5/10 right shoulder pain Vitals stable Plan of care ongoing.
--- NOTE | 2025-02-05 19:55 | ED_ITS ---
HPI - Fall General Chief Complaint: Fall Stated Complaint: Fall, no thinners/head strike, +c-collar Time Seen by Provider: 02/05/25 19:48 Source: patient, family (Brother) and EMS Mode of arrival: EMS Limitations: no limitations History of Present Illness ED Provider: DR. Lewis HPI Narrative: A 69-year-old female came in by ambulance for evaluation of right shoulder pain after a fall, patient fell 3 steps of stairs backward on her right shoulder, declined head injury, no neck pain, no chest pain, no abdominal pain, no back pain, no extremity injuries other than right shoulder pain, patient admit to drinking 3 glasses of wine, patient declined head injury, no LOC, no blood thinner. Related Data Home Medications ?Medication ?Instructions ?Recorded ?Confirmed albuterol sulfate 90 mcg/actuation 2 puff inhalation Q 4H PRN wheezing 02/06/25 02/06/25 aerosol inhaler fluticasone fur. 100 mcg-umeclid 1 ea inhalation DAILY 02/06/25 02/06/25 62.5 mcg-vilant 25 mcg inhalat.powder (Trelegy Ellipta) azithromycin 500 mg tablet 500 mg PO MOWEFR 02/07/25 1 Allergies Allergy/AdvReac Type Severity Reaction Status Date / Time tree nut (TREE NUT) Allergy Intermediate MOUTH Verified 02/05/25 19:23 TINGLING atorvastatin (Lipitor) Allergy Unknown Unknown Verified 02/05/25 19:23 ENVIRONMENTAL Allergy Intermediate NASAL Uncoded 02/05/25 19:23 CONGESTION Review of Systems 2 Review of Systems: All other systems are reviewed and are negative Constitutional: Reports as per HPI and Reports no additional constitutional complaints Eyes: Reports as per HPI and Reports no additional eye complaints Reports system reviewed and no additional complaints, except as documented Cardiovascular: Reports as per HPI and Reports no additional cardiovascular complaints Respiratory: Reports as per HPI and Reports no additional respiratory complaints Gastrointestinal: Reports as per HPI and Reports no additional gastrointestinal complaints Genitourinary: Reports no additional female genitourinary complaints Musculoskeletal: Reports no additional musculoskeletal complaints Skin/Breast: Reports system reviewed and no additional complaints, except as docu Psychiatric: Reports no additional psychiatric complaints Endocrine: Reports no additional endocrine complaints Hematologic/Lymphatic: Reports no additional hematologic/lymphatic complaints Allergic/Immunologic: Reports no additional allergic/immunologic complaints Reports system reviewed and no additional complaints, except as documented and Reports Abnormal speech present [facility] Past Medical History Medical History Hyperlipidemia Non-tuberculous mycobacterial pneumonia Lung cancer COPD (chronic obstructive pulmonary disease) Surgical History Hx of nasal septoplasty Hx of colonoscopy History of esophagogastroduodenoscopy (EGD) History of pneumonectomy Social History Social History Household Members: Family Housing: House Do you presently have visiting nurse or other home services: No Alcohol intake: current Alcohol intake frequency: holidays/special occasions only Alcohol type: hard liquor Patient Tobacco Use Status: Current everyday Tobacco user Tobacco use type: Cigarette Smoked in Last 30 Days: Yes e-Cigarette/Vaping Use: Never Used Use of substances other than those prescribed or required for medical reasons: No Advance Directives: No Advance Directives Information Provided: No service: No Physical Exam 2 Vital Signs: Vital Signs: Last Vital Signs Temp 98.3 F 02/07/25 09:05 Pulse 101 H 02/07/25 10:59 Resp 19 02/07/25 10:59 BP 134/74 02/07/25 10:59 Pulse Ox 96 02/07/25 10:59 O2 Del Method Room Air 02/07/25 10:59 O2 Flow Rate 5 02/06/25 23:20 BMI result Body Mass Index 21.0 Vital signs have been reviewed and appear to be correct. Blood pressure elevated. Heart rate normal. Respiratory rate normal. Temperature normal. Oxygen saturation normal. Appearance: Alert. Oriented X3. No acute distress. Head: Normal external exam. Normocephalic. Atraumatic. No Lee signs noted. No raccoon eyes noted Eyes: PERRLA. EOMI. Conjunctiva and sclera normal. Eyelids normal. ENT: TM's Normal. Pharynx normal. Uvula midline. Moist mucous membranes. No trismus noted. No drooling noted. No muffled voice noted. Neck: Normal inspection. Neck supple. FROM. No adenopathy. Thyroid Normal. No meningeal signs. No neck mass noted. CVS: Normal heart rate and rhythm. Heart sound normal. No murmurs noted. Pulses normal throughout. Respiratory: No respiratory distress. Painless inspiration. Breath sounds normal. No wheezes/rales/rhonchi noted. Chest nontender. No accessory muscle usage noted or decreased air movement noted. Abdomen: Soft and nontender. Bowel sounds normal in all 4 quadrants. No distention noted. No organomegaly noted. No visible injury noted. Back: No CVA tenderness. Full range of motion noted. Skin: Skin warm and dry. Normal skin color. Normal skin turgor. No rashes/lesions/lacerations noted. Extremities: Right shoulder: Held in adduction position with painful abduction, + ecchymosis, limited range of motion secondary to severe pain. Neuro: Oriented X 3. Cranial nerve exam: II-XII are grossly intact No motor deficit. No sensory deficit. Reflexes normal. Course Course Course Narrative: Time: 18:00 Date: 02/06/25 Provider: Brigette Dillon PA-C Patient in physician observation for case management needs. Nursing just reach out to me stating the patient is complaining of pain and does not have any orders for pain management. I will put in scheduled order for Tylenol, patient is mildly tachycardic at 106 however this may be due to pain. We will dose with Tylenol and reassess. Time: 18:00 Date: 02/06/25 Provider: Brigette Dillon PA-C Patient in physician observation for case management needs. patient is being discharged to [facility] for STR needs. we will continue to monitor as we await transportation for discharge. Reevaluation(s) Reevaluation #1: S/p mechanical fall, patient admit to drinking alcohol., await for right shoulder x-ray, head and C-spine CT, patient was signed out to Dr. Todd Time: 20:33 Reevaluation #2: 9:11 AM 02/06/2025 (Dr. Gold Ferrari): I, Dr. Ferrari have take over the care of this patient, I reviewed pertinent blood work and imaging, re-evaluated the patient when appropriate. Medications Administered Generic Name Dose Route Start Last Admin Trade Name Freq PRN Reason Stop Dose Admin Acetaminophen 975 mg 02/06/25 18:30 02/07/25 10:45 Acetaminophen 325 Mg Tablet PO 975 mg TID PRN Administration Pain, Mild (Pain Scale 1-3) Azithromycin 500 mg 02/07/25 11:00 02/07/25 10:45 Azithromycin 500 Mg Tablet PO 500 mg MoWeFr JEFFREY Administration Fluticasone/Umeclidinium/Vilanterol 1 puff 02/07/25 09:00 02/07/25 09:14 Fluticasone/Umeclidinium/Vilanterol 100/62.5/25 Blst.W.Dev INHALE Not Given RDAILY JEFFREY Discontinued Medications Generic Name Dose Route Start Last Admin Trade Name Anurag PRN Reason Stop Dose Admin Albuterol Sulfate 5 mg/ 0 mg 02/06/25 23:23 02/06/25 23:25 Albuterol/Ipratropium 3 ml INHALE 02/06/25 23:24 1 each ONCE ONE Administration Medical Decision Making Medical Decision Making [facility] Narrative: I received sign-out from my colleague Dr. Lewis We were on down time, please see paper chart Overall, patient's head CT and cervical spine CT are within normal limits. Patient has a right clavicular fracture. Patient's arm is on a sling. As we were trying to discharge the patient, patient has started complaining of lower back pain, a CT scan was done which shows chronic L3 fracture. However, seems that it may have gotten worse with this fall. Patient denies any numbness or tingling. Physical therapy and case management consult are pending. Sign-out given to my colleague Dr. Ferrari Differential Diagnosis Differential Diagnoses: The differential diagnosis associated with the presentation includes (Closed head injury, cervical spine injury, chest injury, abdominal injury, extremity injury, back injury, right shoulder fracture, right shoulder dislocation) Admission/Observation Consideration of admission/observation: Escalation of care including admission/observation considered Lab Data 02/06/25 17:30 02/06/25 17:30 Labs: Lab Results 02/06/25 02/06/25 Range/Units 04:43 17:30 WBC 11.1 H (4.8-10.8) X10*3/uL RBC 4.28 (4.20-5.50) X10*6/uL Hgb 13.1 (12.0-16.0) g/dl Hct 39.8 (37.0-47.0) % MCV 93.0 (80.0-98.0) fL MCH 30.6 (27.0-33.0) pg MCHC 32.9 (31.0-35.0) g/dl RDW 14.9 (11.0-16.0) % Plt Count 282 (160-400) X10*3/uL MPV 10.7 (9.4-12.3) fL Immature Gran % (Auto) 0.4 (0.0-0.4) % Neut % (Auto) 74.6 H (45-73) % Lymph % (Auto) 10.8 L (20-40) % Jackson % (Auto) 12.3 H (2-11) % Eos % (Auto) 1.3 (0-4) % Baso % (Auto) 0.6 (0-2) % Lymph # (Auto) 1.2 (1.2-4.9) X10*3/uL Jackson # (Auto) 1.4 H (0.1-1.2) X10*3/uL Eos # (Auto) 0.2 (0.0-0.4) X10*3/uL Baso # (Auto) 0.1 (0.0-0.2) X10*3/uL Abs Immat Gran (auto) 0.04 H (0.00-0.03) X10*3/uL Absolute Neuts (auto) 8.3 (2.0-8.3) x10*3/uL Absolute Nucleated RBC 0.000 (0.0-0.012) X10*3/uL Nucleated RBC % (auto) 0.0 (0.0-0.2) /100WBC Sodium 138 (135-145) mmol/L Potassium 4.2 (3.3-5.1) mmol/L Chloride 106 (96-108) mmol/L Carbon Dioxide 27 (22-29) mmol/L Anion Gap 9 L (12-20) BUN 16 (9-16) mg/dL Creatinine 0.54 (0.5-1.4) mg/dL Estim Creat Clear Calc 76.7 Estimated GFR > 60 Random Glucose 117 H (60-115) mg/dL Calcium 9.2 (8.4-10.2) mg/dL Urine Color Yellow Urine Appearance Clear Urine pH 5.5 (5.0-9.0) Ur Specific [place]ery 1.015 (1.005-1.025) Urine Protein Trace (Neg-Trace) mg/dL Urine Glucose (UA) Negative (Negative) mg/dL Urine Ketones Trace (Negative) mg/dL Urine Blood Negative (Negative) Urine Nitrite Negative (Negative) Ur Leukocyte Esterase Small (1+) H (Negative) Urine RBC 0-2 (0-2) /HPF Urine WBC 0-5 (0-5) /HPF Ur Squamous Epith Cells 3-5 (0-2) /HPF Urine Bacteria None Seen (None Seen) Hyaline Casts 0-2 (0-2) /LPF Critical Care Time Critical Care Time Critical Care Time: Yes Total Critical Care Time: 60 Attestation: I have personally provided critical care time. Time includes review of lab data, radiology results, discussion with consultants, and monitoring for potential decompensation. Intervention performed as documented. Discharge Plan Discharge Clinical Impression: Fall, Clavicle fracture, Closed compression fracture of L3 vertebra Patient Disposition: Xfer Inpatient Rehab Fac Transfer Details: TO DR ROMY SCOTT ACCEPTING Prescriptions: No Action albuterol sulfate 90 mcg/actuation HFA aerosol inhaler 2 puff inhalation Q4H PRN (Reason: wheezing) Trelegy Ellipta 100-62.5-25 mcg blister with device 1 ea INHALATION DAILY azithromycin 500 mg tablet 500 mg PO MOWEFR Referrals: [facility] [Other] Jeremiah Kennedy MD [Physician, Internal Medicine] Print Language: Mohawk
--- OUTSIDE RECORDS SUMMARY | 2025-02-05 21:48 | XMS_ITS | Encounter Summary ---
Author Organization [facility] Address [address] [place] [address] Phone Care Team Providers Care Solutions Architect Consultant Name Role Phone Jeremiah Kennedy MD Primary Care Provider + Self-Referred, Patient Unavailable Unavailab Stuart Luz MD Unavailable [phone] Francis Salazar MD Unavailable [phone] Encounter Details Date Type Department Care Team (Late st Contact Info) Description 06/23/2021 Procedure Pass [facility] [address] [place] [address] Social History Tobacco Use Types Packs/Day Years [...] st Contact Info) Description 11/07/2024 Procedure Pass [facility] CT Imaging, [place] [address] [place] [address] 02/19/2025 10:15 AM EST Appointment [facility] CT Imaging, [place] [address] [place] [address] Stuart Smith MD [address] [place] [address] [email or web address] 02/19/2025 11:15 AM EST Office Visit [facility] [address] [place] [address] Stuart Smith MD [address] [place] [address] [email or web address] documented as of this encounter Visit Diagnoses Not on filedocumented in this encounter Additional Health Concerns Assessment Noted Time PHQ-2 Depression Total Score: 0 01/28/20 10:08 AM EST documented as of this encounter Care Teams Solutions Architect Consultant Relationship Specialty Start Date End Date Jeremiah Kennedy MD [address] [place] [address] PCP - General Family Medicine 08/29/20 Self-Referred, Patient 08/29/20 Stuart Smith MD [address] [place] [address] [email or web address] Thoracic Surgery 09/06/20 Francis Salazar MD [address] [place] [address] [address] [place] [address] Internal Medicine 10/16/20 documented as of this encounter Additional Source Comments The information contained in this document represents components of the legal health record. It is not the complete legal health record.[facility]
--- OUTSIDE RECORDS SUMMARY | 2025-02-05 21:48 | XMS_ITS | Encounter Summary ---
Author Organization [facility] Address [address] [place] [address] Phone Care Team Providers Care Combat Information Center Officer Name Role Phone Jeremiah Kennedy MD Primary Care Provider + Self-Referred, Patient Unavailable Unavailab Stuart Luz MD Unavailable [phone] Francis Salazar MD Unavailable [phone] Encounter Details Date Type Department Care Team (Late st Contact Info) Description 10/21/2020 Procedure Pass [facility] Periop [address] [place] [address] Social History Tobacco Use Types Packs/Day Years [...] st Contact Info) Description 11/07/2024 Procedure Pass [facility] CT Imaging, [place] [address] [place] [address] 02/19/2025 10:15 AM EST Appointment [facility] CT Imaging, [place] [address] [place] [address] Stuart Smith MD [address] [place] [address] [email or web address] 02/19/2025 11:15 AM EST Office [facility] [address] [place] [address] Stuart Smith MD [address] [place] [address] [email or web address] documented as of this encounter Visit Diagnoses Not on filedocumented in this encounter Additional Health Concerns Infection Onset Date Last Indicated Resolved Time CoV-Exposed Comment:Patient meets exposure criteria to a COVID+ HCW on 02/14/2021 02/14/2021 02/21/2021 1:24 AM EST CoV-Risk Comment:Per Ambulatory Triage Form 02/22/2021 02/23/202103/05 1:24 AM EST documented as of this encounter Care Teams Combat Information Center Officer Relationship Specialty Start Date End Date Jeremiah Kennedy MD [address] [place] [address] PCP - General Family Medicine 08/29/20 Self-Referred, Patient 08/29/20 Stuart Smith MD [address] [place] [address] [email or web address] Thoracic Surgery 09/06/20 Francis Salazar MD [address] [place] [phone] Internal Medicine 10/16/20 documented as of this encounter Additional Source Comments The information contained in this document represents components of the legal health record. It is not the complete legal health record.[facility]
--- OUTSIDE RECORDS SUMMARY | 2025-02-05 21:48 | XMS_ITS | Encounter Summary ---
Author Organization [facility] Address [address] [place] [phone] Phone Care Team Providers Care Wind Turbine Electrical Engineer Name Role Phone Jeremiah Kennedy MD Primary Care Provider + Self-Referred, Patient Unavailable Unavailab Stuart Luz MD Unavailable [phone] Francis Salazar MD Unavailable [phone] Encounter Details Date Type Department Care Team (Late st Contact Info) Description 06/10/2021 Procedure Pass [facility] Rad[facility] [address] [place] [address] Social History Tobacco Use Types Packs/Day Years [...] (Late Contact Info) Description 11/07/2024 Procedure Pass [facility] CT Imaging, [place] [address] [place] [address] 02/19/2025 10:15 AM EST Appointment [facility] CT Imaging, [place] [address] [place] [address] Stuart Smith MD [address] [place] [address] [email or web address] 02/19/2025 11:15 AM EST Office Visit [facility] [address] [place] [address] Stuart Smith MD [address] [place] [address] [email or web address] documented as of this encounter Visit Diagnoses Not on filedocumented in this encounter Additional Health Concerns Assessment Noted Time PHQ-2 Depression Total Score: 0 01/28/20 10:08 AM EST documented as of this encounter Care Teams Wind Turbine Electrical Engineer Relationship Specialty Start Date End Date Jeremiah Kennedy MD [address] [place] [address] PCP - General Family Medicine 08/29/20 Self-Referred, Patient 08/29/20 Stuart Smith MD [address] [place] [address] [email or web address] Thoracic Surgery 09/06/20 Francis Salazar MD [address] [place] [address] Internal Medicine 10/16/20 documented as of this encounter Additional Source Comments The information contained in this document represents components of the legal health record. It is not the complete legal health record.[facility]
--- OUTSIDE RECORDS SUMMARY | 2025-02-05 21:48 | XMS_ITS | Encounter Summary ---
Author Organization [facility] Address [address] [place] [address] Phone Care Team Providers Care Adobe Flex Developer Name Role Phone Jeremiah Kennedy MD Primary Care Provider + Self-Referred, Patient Unavailable Unavailab Stuart Luz MD Unavailable [phone] Francis Salazar MD Unavailable [phone] Encounter Details Date Type Department Care Team (Late st Contact Info) Description 03/22/2023 Procedure Pass [facility] CT Imaging, [place] [address] [place] [address] Social History Tobacco Use Types Packs/Day Years [...] Info) Description 11/07/2024 Procedure Pass [facility] CT Imaging, [place] [address] [place] [address] 02/19/2025 10:15 AM EST Appointment [facility] CT Imaging, [place] [address] [place] [address] Stuart Smith MD [address] [place] [address] [email or web address] 02/19/2025 11:15 AM EST Office [facility] [address] [place] [phone] Stuart Smith MD [address] [place] [address] [email or web address] documented as of this encounter Visit Diagnoses Not on filedocumented in this encounter Additional Health Concerns Assessment Noted Time PHQ-2 Depression Total Score: 0 10/18/19 24 11:36 AM EDT documented as of this encounter Care Teams Adobe Flex Developer Relationship Specialty Start Date End Date Jeremiah Kennedy MD [address] [place], [place] [phone] PCP - General Family Medicine 08/29/20 Self-Referred, Patient 08/29/20 Stuart Smith MD [address] [place] [address] [email or web address] Thoracic Surgery 09/06/20 Francis Salazar MD [address] [place] [phone] (work) Internal Medicine 10/16/20 documented as of this encounter Additional Source Comments The information contained in this document represents components of the legal health record. It is not the complete legal health record.[facility]
--- OUTSIDE RECORDS SUMMARY | 2025-02-05 21:48 | XMS_ITS | Encounter Summary ---
Author Organization [facility] Address [address] [place] [address] Phone Care Team Providers Care Gas Station Operator Name Role Phone Jeremiah Kennedy MD Primary Care Provider + Self-Referred, Patient Unavailable Unavailab Sturat Luz MD Unavailable [phone] Francis Salazar MD Unavailable [phone] Encounter Details Date Type Department Care Team (Late st Contact Info) Description 09/09/2020 Procedure Pass [facility] [address] [place] [address] Social History Tobacco Use Types Packs/Day Years [...] (Late Contact Info) Description 11/07/2024 Procedure Pass [facility] CT Imaging, [place] [address] [place] [address] 02/19/2025 10:15 AM EST Appointment [facility] CT Imaging, [place] [address] [place] [address] Stuart Smith MD [address] [place] [address] [email or web address] 02/19/2025 11:15 AM EST Office Visit [facility] [address] [place] [address] Stuart Smith MD [address] [place] [address] [email or web address] documented as of this encounter Visit Diagnoses Not on filedocumented in this encounter Additional Health Concerns Infection Onset Date Last Indicated Resolved Time CoV-Exposed Comment:Patient meets exposure criteria to a COVID+ HCW on 02/14/2021 02/14/2021 02/21/2021 1:24 AM EST CoV-Risk Comment:Per Ambulatory Triage Form 02/22/2021 02/23/202103/05 1:24 AM EST documented as of this encounter Care Teams Gas Station Operator Relationship Specialty Start Date End Date Jeremiah Kennedy MD [address] [place] [address] PCP - General Family Medicine 08/29/20 Self-Referred, Patient 08/29/20 Stuart Smith MD [address] [place] [address] [email or web address] Thoracic Surgery 09/06/20 Francis Salazar MD [address] [place] [address] Internal Medicine 10/16/20 documented as of this encounter Additional Source Comments The information contained in this document represents components of the legal health record. It is not the complete legal health record.[facility]
--- OUTSIDE RECORDS SUMMARY | 2025-02-05 21:48 | XMS_ITS | Encounter Summary ---
Author Organization [facility] Address [address] [place] [address] [place] [address] Phone Care Team Providers Care Timber Trimmer Name Role Phone Jeremiah Kennedy MD Primary Care Provider + Self-Referred, Patient Unavailable Unavailab Stuart Luz MD Unavailable [phone] Francis Salazar MD Unavailable [phone] Encounter Details Date Type Department Care Team (Late st Contact Info) Description 10/28/2020 Procedure Pass [facility] [address] [place] [address] Social History Tobacco Use Types Packs/Day Years [...] (Late Contact Info) Description 11/07/2024 Procedure Pass [facility] CT Imaging, [place] [address] [place] [address] 02/19/2025 10:15 AM EST Appointment [facility] CT Imaging, [place] [address] [place] [address] Stuart Smith MD [address] [place] [address] [email or web address] 02/19/2025 11:15 AM EST Office Visit [facility] [address] [place] [address] Stuart Smith MD [address] [place] [address] [email or web address] documented as of this encounter Visit Diagnoses [...] documented as of this encounter Care Teams Timber Trimmer Relationship Specialty Start Date End Date Jeremiah Kennedy MD [address] [place] [address] PCP - General Family Medicine 08/29/20 Self-Referred, Patient 08/29/20 Stuart Smith MD [address] [place] [address] [email or web address] Thoracic Surgery 09/06/20 Francis Salazar MD [address] [place] [address] Internal Medicine 10/16/20 documented as of this encounter Additional Source Comments The information contained in this document represents components of the legal health record. It is not the complete legal health record.[facility]
--- OUTSIDE RECORDS SUMMARY | 2025-02-05 21:48 | XMS_ITS | Clinical Summary ---
Author Organization [facility] Address [address] [place] [address] Phone Care Team Providers Care Negative Stripper Name Role Phone Jeremiah Kennedy MD Primary Care Provider + Self-Referred, Patient Unavailable Unavailab Stuart Luz MD Unavailable [phone] Francis Salazar MD Unavailable [phone] Allergies Active Allergy Reactions Criticality Noted Date [...] lungs daily. 60 each 2 5 Active Active Problems Problem Noted Date [...] EST Hospital Encounter [facility] PFT [facility] [address] [place] [address] Vadim Joy MD, MPH Discharge Disposition: Home or Self Care 11/07/2024 Orders Only [facility] 204 [place] [address] Mariza, Dorota E Lung nodule (Primary Dx) from Last 3 [...] st Contact Info) Description 11/07/2024 Procedure Pass [facility] CT Imaging, [place] [address] [place] [address] 02/19/2025 10:15 AM EST Appointment [facility] CT Imaging, [place] [address] [place] [address] Stuart Smith MD [address] [place] [address] [email or web address] 02/19/2025 11:15 AM EST Office Visit [facility] [address] [place] [address] Stuart Smith MD [address] [place] [address] [email or web address] Health Maintenance Due Date Last Done Comments [...] with bronchodilator, DLCO, Lung Volumes; Performing Location: [facility] (12/14/2024 1:55 PM EST) FEV1 0.69 liters [...] comparison. Technical Note: As of 12/21/2023, the [facility] Pulmonary Function Testing (PFT) Laboratory transitioned [...] please contact the interpreting physician or PFT seed analysis laboratory assistant. For further discussion of this issue please see Davidson et al AJRCCM 2022;207(8):978. Please Note: Not all PFT labs [...] Months Insurance MEDICARE PART A & B [employer] SUPPLEMENT MEDICARE PART A & B [employer] MED[employer] SUPPLEMENT MEDICARE PART A & B [employer] SUPPLEMENT MEDICARE PART A & B [employer] SUPPLEMENT MEDICARE PART A & B [email or web address] SUPPLEMENT MEDICARE PART A & B [employer] SUPPLEMENT MEDICARE PART A & B [employer] MEDEX SUPPLEMENT MEDICARE PART A & B [employer] MED[employer] SUPPLEMENT MEDICARE PART A & B [employer] MED[employer] SUPPLEMENT Advance Directives For more information, please contact: [phone] (9AM - 5PM Eva/[facility], Wednesday-Wednesday) Documents on File Type Date Recorded Patient School Age Program Associate Expl 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 09/09/2020 New Patient Information Consent form * Full Code (Latest Code Status on File) Date Activated Date Inactivated Comments 10/21/2020 9:17 PM Question Answer Comments Code Status Confirmed With: Patient Care Teams Negative Stripper Relationship Specialty Start Date End Date Jeremiah Kennedy MD [address] [place] [address] PCP - General Family Medicine 08/29/20 Self-Referred, Patient 08/29/20 Stuart Smith MD [address] [place] [address] [email or web address] Thoracic Surgery 09/06/20 Francis Salazar MD [address] [place] [address] Internal Medicine 10/16/20 Additional Source Comments The information contained in this document represents components of the legal health record. It is not the complete legal health record.[facility]
--- OUTSIDE RECORDS SUMMARY | 2025-02-05 21:48 | XMS_ITS | Encounter Summary ---
Author Organization [facility] Address [address] [place] [address] Phone Care Team Providers Care Hand Baseball Sewer Name Role Phone Jeremiah Kennedy MD Primary Care Provider + Self-Referred, Patient Unavailable Unavailab Stuart Luz MD Unavailable [phone] Francis Salazar MD Unavailable [phone] Encounter Details Date Type Department Care Team (Late st Contact Info) Description 02/16/2022 Procedure Pass [facility] [address] [place] [address] Social History Tobacco Use Types Packs/Day Years [...] (Late Contact Info) Description 11/07/2024 Procedure Pass [facility] CT Imaging, [place] [address] [place] [address] 02/19/2025 10:15 AM EST Appointment [facility] CT Imaging, [place] [address] [place] [address] Stuart Smith MD [address] [place] [address] [email or web address] 02/19/2025 11:15 AM EST Office Visit [facility] [address] [place] [address] Stuart Smith MD [address] [place] [address] [email or web address] documented as of this encounter Visit Diagnoses Not on filedocumented in this encounter Additional Health Concerns Assessment Noted Time PHQ-2 Depression Total Score: 0 02/16/19 23 10:21 AM EST documented as of this encounter Care Teams Hand Baseball Sewer Relationship Specialty Start Date End Date Jeremiah Kennedy MD [address] [place] [address] PCP - General Family Medicine 08/29/20 Self-Referred, Patient 08/29/20 Stuart Smith MD [address] [place] [address] [email or web address] Thoracic Surgery 09/06/20 Francis Salazar MD [address] [place] [address] Internal Medicine 10/16/20 documented as of this encounter Additional Source Comments The information contained in this document represents components of the legal health record. It is not the complete legal health record.[facility]
--- OUTSIDE RECORDS SUMMARY | 2025-02-05 21:48 | XMS_ITS | Encounter Summary ---
Author Organization [facility] Address [address] [place] [address] [place] [address] Phone Care Team Providers Care Fisher Pot Name Role Phone Jeremiah Kennedy MD Primary Care Provider + Self-Referred, Patient Unavailable Unavailab Stuart Luz MD Unavailable [phone] Francis Salazar MD Unavailable [phone] Encounter Details Date Type Department Care Team (Late st Contact Info) Description 10/16/2020 Procedure Pass [facility] [address] [place] [address] Social History Tobacco Use Types Packs/Day Years [...] (Late Contact Info) Description 11/07/2024 Procedure Pass [facility] CT Imaging, [place] [address] [place] [address] 02/19/2025 10:15 AM EST Appointment [facility] CT Imaging, [place] [address] [place] [address] Stuart Smith MD [address] [place] [address] [email or web address] 02/19/2025 11:15 AM EST Office Visit [facility] [address] [place] [address] Stuart Smith MD [address] [place] [address] [email or web address] documented as of this encounter Visit Diagnoses Not on filedocumented in this encounter Additional Health Concerns Infection Onset Date Last Indicated Resolved Time CoV-Exposed Comment:Patient meets exposure criteria to a COVID+ HCW on 02/14/2021 02/14/2021 02/21/2021 1:24 AM EST CoV-Risk Comment:Per Ambulatory Triage Form 02/22/2021 02/23/202103/05 1:24 AM EST documented as of this encounter Care Teams Fisher Pot Relationship Specialty Start Date End Date Jeremiah Kennedy MD [address] [place] [address] PCP - General Family Medicine 08/29/20 Self-Referred, Patient 08/29/20 Stuart Smith MD [address] [place] [address] [email or web address] Thoracic Surgery 09/06/20 Francis Salazar MD [address] [place] [address] Internal Medicine 10/16/20 documented as of this encounter Additional Source Comments The information contained in this document represents components of the legal health record. It is not the complete legal health record.[facility]
--- OUTSIDE RECORDS SUMMARY | 2025-02-05 21:48 | XMS_ITS | Encounter Summary ---
Author Organization [facility] Address [address] [place] [address] Phone Care Team Providers Care Ceramic Worker Name Role Phone Jeremiah Kennedy MD Primary Care Provider + Self-Referred, Patient Unavailable Unavailab Stuart Luz MD Unavailable [phone] Francis Salazar MD Unavailable [phone] Reason for Visit * Reason Comments Medication Refill Encounter Details Date Type Department Care Team (Late st Contact Info) Description 12/08/2022 Refill [facility] [address] [place] [address] Nissa Brown, MANNY [address] [place] [phone] [email or web address] Medication Refill Social History Tobacco [...] st Contact Info) Description 11/07/2024 Procedure Pass [facility] CT Imaging, [place] [address] [place] [address] 02/19/2025 10:15 AM EST Appointment [facility] CT Imaging, [place] [address] [place] [address] Stuart Smith MD [address] [place] [address] [email or web address] 02/19/2025 11:15 AM EST Office Visit [facility] [address] [place] [address] Stuart Smith MD [address] [place] [address] [email or web address] documented as of this encounter Visit Diagnoses Not on filedocumented in this encounter Additional Health Concerns Assessment Noted Time PHQ-2 Depression Total Score: 0 02/16/19 23 10:21 AM EST documented as of this encounter Care Teams Ceramic Worker Relationship Specialty Start Date End Date Jeremiah Kennedy MD [address] [place] [address] PCP - General Family Medicine 08/29/20 Self-Referred, Patient 08/29/20 Stuart Smith MD [address] [place] [address] [email or web address] Thoracic Surgery 09/06/20 Francis Salazar MD [address] [place] [address] Internal Medicine 10/16/20 documented as of this encounter Additional Source Comments The information contained in this document represents components of the legal health record. It is not the complete legal health record.[facility]
--- OUTSIDE RECORDS SUMMARY | 2025-02-05 21:48 | XMS_ITS | Encounter Summary ---
Author Organization [facility] Address [address] [place] [address] Phone Care Team Providers Care Cabin Cleaner Name Role Phone Jeremiah Kennedy MD Primary Care Provider + Self-Referred, Patient Unavailable Unavailab Stuart Luz MD Unavailable [phone] Francis Salazar MD Unavailable [phone] Encounter Details Date Type Department Care Team (Late st Contact Info) Description 02/14/2021 Procedure Pass [facility] Periop 75 [place] [address] Social History Tobacco Use Types Packs/Day Years [...] Info) Description 11/07/2024 Procedure Pass [facility] CT Imaging, [place] [address] [place] [address] 02/19/2025 10:15 AM EST Appointment [facility] CT Imaging, [place] [address] [place] [address] Stuart Smith MD [address] [place] [address] [email or web address] 02/19/2025 11:15 AM EST Office Visit [facility] [address] [place] [address] Stuart Smith MD [address] [place] [address] [email or web address] documented as of this encounter [...] documented as of this encounter Care Teams Cabin Cleaner Relationship Specialty Start Date End Date Jeremiah Kennedy MD [address] [place] [address] PCP - General Family Medicine 08/29/20 Self-Referred, Patient 08/29/20 Stuart Smith MD [address] [place] [address] [email or web address] Thoracic Surgery 09/06/20 Francis Salazar MD [address] [place] [address] Internal Medicine 10/16/20 documented as of this encounter Additional Source Comments The information contained in this document represents components of the legal health record. It is not the complete legal health record.[facility]
--- OUTSIDE RECORDS SUMMARY | 2025-02-05 21:48 | XMS_ITS | Encounter Summary ---
Author Organization [facility] Address [facility] [address] [place] [address] Phone Care Team Providers Care Peanut Roaster Name Role Phone Jeremiah Kennedy MD Primary Care Provider + Self-Referred, Patient Unavailable Unavailab Stuart Luz MD Unavailable [phone] Francis Salazar MD Unavailable [phone] Encounter Details Date Type Department Care Team (Late st Contact Info) Description 09/14/2022 Procedure Pass [facility] 75 [place] [address] Social History Tobacco Use Types Packs/Day Years [...] st Contact Info) Description 11/07/2024 Procedure Pass [facility] CT Imaging, [place] [address] [place] [address] 02/19/2025 10:15 AM EST Appointment [facility] CT Imaging, [place] [address] [place] [address] Stuart Smith MD 75 [place] [address] [email or web address] 02/19/2025 11:15 AM EST Office Visit [facility] [address] [place] [address] Stuart Smith MD [address] [place] [address] [email or web address] documented as of this encounter Visit Diagnoses Not on filedocumented in this encounter Additional Health Concerns Assessment Noted Time PHQ-2 Depression Total Score: 0 03/22/19 24 9:18 AM EST documented as of this encounter Care Teams Peanut Roaster Relationship Specialty Start Date End Date Jeremiah Kennedy MD [address] [place] [address] PCP - General Family Medicine 08/29/20 Self-Referred, Patient 08/29/20 Stuart Smith MD [address] [place] [address] [email or web address] Thoracic Surgery 09/06/20 Francis Salazar MD [address] [place] [address]43 Internal Medicine 10/16/20 documented as of this encounter Additional Source Comments The information contained in this document represents components of the legal health record. It is not the complete legal health record.[facility]
--- OUTSIDE RECORDS SUMMARY | 2025-02-05 21:48 | XMS_ITS | Encounter Summary ---
Author Organization [facility] Address [address] [place] [address] Phone Care Team Providers Care Anvil Seating Press Operator Name Role Phone Jeremiah Kennedy MD Primary Care Provider + Self-Referred, Patient Unavailable Unavailab le Stuart Smith MD Unavailable [phone] Francis Salazar MD Unavailable [phone] Reason for Referral * MRI/CAT Scan - Closed Specialty Diagnoses / Procedures Referred By Roberta t Referred To Contact Radiology Diagnoses Lung mass Procedures NM Lung Perfusion Differential Quantification NM Lung Perfusion and Ventilation Differential Quantification Stuart Smith MD Phone: tel: fax: mailto:[email or web address] Referral ID Status Reason Start Date Expiration Date Visits Re quested Visits Authorized [id number] Closed 09/09/2020 09/09/2021 1 1 Encounter Details Date Type Department Care Team (Late st Contact Info) Description 09/16/2020 Ancillary Orders [facility] [address] [place] [address] Stuart Smith MD 75 [place] [address] [email or web address] Lung mass Social History Tobacco Use [...] st Contact Info) Description 11/07/2024 Procedure Pass [facility] Imaging, [place] [address] [place] [address] 02/19/2025 10:15 AM EST Appointment [facility] Imaging, [place] [address] [place] [address] Stuart Smith MD [address] [place] [address] [email or web address] 02/19/2025 11:15 AM EST Office Visit [facility] [address] [place] [address] Stuart Smith MD [address] [place] [address] [email or web address] documented as of this encounter Results * NM Lung Perfusion Differential Quantification (09/16/2020 8:47 AM EDT) Anatomical Region Laterality Modality Chest, Lung Nuclear Medicine 09/16/2020 8:29 AM EDT Impressions 09/16/2020 8:48 AM EDT 1. There is asymmetrically decreased perfusion in the bilateral lung apices. 2. Relative differential lung perfusion: left 46.7%, right 53.3%. ATTESTATION: Mray Clark, as teaching physician have reviewed the [...] created by Cristopher Murray. Stuart Smith MD [facility] LUNG SCAN Final Result documented [...] documented as of this encounter Care Teams Anvil Seating Press Operator Relationship Specialty Start Date End Date Jeremiah Kennedy MD [address] [place] [address] PCP - General Family Medicine 08/29/20 Self-Referred, Patient 08/29/20 Stuart Smith MD [address] [place] [address] [email or web address] Thoracic Surgery 09/06/20 Francis Salazar MD [address] [place] [address] Internal Medicine 10/16/20 documented as of this encounter Additional Source Comments The information contained in this document represents components of the legal health record. It is not the complete legal health record.[facility]
--- OUTSIDE RECORDS SUMMARY | 2025-02-05 21:48 | XMS_ITS | Encounter Summary ---
Author Organization [facility] Address [address] [place] [address] Phone Care Team Providers Care Manager Casino Name Role Phone Jeremiah Kennedy MD Primary Care Provider + Self-Referred, Patient Unavailable Unavailab Stuart Luz MD Unavailable [phone] Francis Salazar MD Unavailable [phone] Encounter Details Date Type Department Care Team (Late st Contact Info) Description 07/23/2021 Procedure Pass [facility] 70 [place] [address] Social History Tobacco Use Types Packs/Day Years [...] (Late Contact Info) Description 11/07/2024 Procedure Pass [facility] CT Imaging, [place] [address] [place] [address] 02/19/2025 10:15 AM EST Appointment [facility] CT Imaging, [place] [address] [place] [address] Stuart Smith MD [address] [place] [address] [email or web address] 02/19/2025 11:15 AM EST Office Visit [facility] [address] [place] [address] Stuart Smith MD [address] [place] [address] [email or web address] documented as of this encounter Visit Diagnoses Not on filedocumented in this encounter Additional Health Concerns Assessment Noted Time PHQ-2 Depression Total Score: 0 02/16/19 23 10:21 AM EST documented as of this encounter Care Teams Manager Casino Relationship Specialty Start Date End Date Jeremiah Kennedy MD [address] [place] [address] PCP - General Family Medicine 08/29/20 Self-Referred, Patient 08/29/20 Stuart Smith MD [address] [place] [address] [email or web address] Thoracic Surgery 09/06/20 Francis Salazar MD [address] [place] [address]179 Internal Medicine 10/16/20 documented as of this encounter Additional Source Comments The information contained in this document represents components of the legal health record. It is not the complete legal health record.[facility]
--- OUTSIDE RECORDS SUMMARY | 2025-02-05 21:48 | XMS_ITS | Encounter Summary ---
Author Organization [facility] Address [address] [place] [address] Phone Care Team Providers Care Patient Care Assistant Name Role Phone Jeremiah Kennedy MD Primary Care Provider + Self-Referred, Patient Unavailable Unavailab Stuart Luz MD Unavailable [phone] Francis Salazar MD Unavailable [phone] Encounter Details Date Type Department Care Team (Late st Contact Info) Description 10/18/[address] [facility] CT Imaging, [place] [address] [place], [place] [phone] Social History Tobacco Use Types Packs/Day Years [...] st Contact Info) Description 11/07/[address] [facility] CT Imaging, [place] [address] [place] [address] 02/19/2025 10:15 AM EST Appointment [facility] CT Imaging, [place] [address] [place] [address] Stuart Smith MD [address] [place] [address] [email or web address] 02/19/2025 11:15 AM EST Office Visit [facility] [address] [place] [address] Stuart Smith MD [address] [place] [address] [email or web address] documented as of this encounter Visit Diagnoses Not on filedocumented in this encounter Additional Health Concerns Assessment Noted Time PHQ-2 Depression Total Score: 0 06/13/19 25 10:25 AM EDT documented as of this encounter Care Teams Patient Care Assistant Relationship Specialty Start Date End Date Jeremiah Kennedy MD [address] [place], [place] [id number] PCP - General Family Medicine 08/29/20 Self-Referred, Patient 08/29/20 Stuart Smith MD [address] [place] [address] [email or web address] Thoracic Surgery 09/06/20 Francis Salazar MD [address] [place] [address] (work) Internal Medicine 10/16/20 documented as of this encounter Additional Source Comments The information contained in this document represents components of the legal health record. It is not the complete legal health record.[facility]
--- OUTSIDE RECORDS SUMMARY | 2025-02-05 21:48 | XMS_ITS | Encounter Summary ---
Author Organization [facility] Address [address] [place] [address] Phone Care Team Providers Care Manager Enterprise Content Management Name Role Phone Jeremiah Kennedy MD Primary Care Provider + Self-Referred, Patient Unavailable Unavailab Stuart Luz MD Unavailable [phone] Francis Salazar MD Unavailable [phone] Encounter Details Date Type Department Care Team (Late st Contact Info) Description 06/23/[address] [facility] Periop [address] [place] [address] Social History Tobacco Use Types Packs/Day Years [...] st Contact Info) Description 11/07/[address] [facility] CT Imaging, [place] [address] [place] [address] 02/19/2025 10:[address] [facility] CT Imaging, [place] [address] [place] [address] Stuart Smith MD [address] [place] [address] [email or web address] 02/19/2025 11:15 AM EST Office Visit [facility] [address] [place] [address] Stuart Smith MD [address] [place] [address] [email or web address] documented as of this encounter Visit Diagnoses Not on filedocumented in this encounter Additional Health Concerns Assessment Noted Time PHQ-2 Depression Total Score: 0 01/28/20 10:08 AM EST documented as of this encounter Care Teams Manager Enterprise Content Management Relationship Specialty Start Date End Date Jeremiah Kennedy MD [address] [place] [address] PCP - General Family Medicine 08/29/20 Self-Referred, Patient 08/29/20 Stuart Smith MD [address] [place] [address] [email or web address] Thoracic Surgery 09/06/20 Francis Salazar MD [address] [place] [address] Internal Medicine 10/16/20 documented as of this encounter Additional Source Comments The information contained in this document represents components of the legal health record. It is not the complete legal health record.[facility]
--- OUTSIDE RECORDS SUMMARY | 2025-02-05 21:48 | XMS_ITS | Clinical Summary ---
Author Organization [facility] Address [address] [place] [id number] Care Team Providers Care Behavioral Health Professional Name Role Phone Jeremiah Kennedy Primary Care Provider [phone] Oseas Cross MD Unavailable Allergies No known active allergies Medications traMADoL (ULTRAM) 50 mg tablet Take 1 tablet (50 mg total) by mouth every 6 hours as needed for pain. 50 tablet Active fluticasone/zak anterol (BREO ELLIPTA INHL) Inhale. Active tiotropium (SPIRIVA) [address] 1 capsule (18 mcg total) into inhaler and inhale daily. Active albuterol HFA (VENTOLIN; PROVENTIL) 90 mcg/actuation aerosol inhaler Inhale 1-2 puffs every 6 hours as needed for wheezing or shortness of breath. Active Social History Tobacco Use Types Packs/Day Years Used Date Smoking Tobacco: Never Assessed Comments Unknown Sex and Gender Information Value Date Recorded Sex Assigned at Female 07/16/2022 7:20 AM EDT Legal Sex Female 6:34 PM EST Gender Identity Female 07/16/2022 7:20 AM EDT Sexual Orientation Not on file Last Filed Vital Signs Vital Sign Reading Time Taken Comments Blood Pressure 115/72 11/23/2023 1:32 PM EDT Pulse 90 11/23/2023 1:32 PM EDT Temperature - - Respiratory Rate 18 07/20/2022 2:11 PM EDT Oxygen Saturation 96% 11/23/2023 1:32 PM EDT Inhaled Oxygen Concentration - - Weight 50.8 kg (112 lb) 11/23/2023 1:32 PM EDT Height 157.5 cm (5' 2 ) 11/23/2023 1:32 PM EDT Body Mass Index 20.49 11/23/2023 1:32 PM EDT Plan of Treatment Health Maintenance Due Date Last Done Comments Depression Screening 1966 Hepatitis C Screening 1972 Breast Cancer Screening 1994 CT Colonography 04/17/1999 Colonoscopy 04/17/1999 Colorectal Cancer Screening 04/17/1999 FIT 04/17/1999 FOBT 04/17/1999 Multitarget Stool DNA (Cologuard) 04/17/1999 Sigmoidoscopy 04/17/1999 Zoster Vaccine (1 of 2) 2004 Medicare Initial AWV G0438 02/08/2017 Osteoporosis Screening 04/17/2019 Pneumococcal Vaccine: 50+ Years (3 of 3 - PCV20 or PCV21) 08/28/2024 08/29/2019, 12/23/2010 COVID-19 Vaccine (4 - season) 2024 12/25/2020, 06/12/2020, 05/22/2020 Influenza Vaccine (#1) 2024 3, 12/12/2020, 11/17/2019, Additional history exists Blood Pressure 11/22/2024 11/23/2023 Lipid Panel 11/22/2028 11/23/2023 DTaP,Tdap,and Td Vaccines (4 - Td or Tdap) 11/15/2033 11/16/2023, 12/12/2018, 02/21/1999 Meningococcal B Vaccines Aged Out No longer eligible based on patient's age to complete this topic Meningococcal Vaccines Aged Out No lo nger eligible based on patient's age to complete this topic Procedures Procedure Name Priority Date/Time Associated Diagnosis Comments LIPID PANEL Routine 11/23/2023 2:57 PM EDT Precordial pain from Last 3 Months or Most Recently Relevant to Health Maintenance Results * (ABNORMAL) Lipid Panel (11/23/2023 2:57 PM EDT) Cholesterol 274(H) 125 - 200 mg/dL [address] 11/23/2023 4:44 PM EDT [facility] Triglycerides 208(H) 55 - 150 mg/dL [address] 11/23/2023 4:44 PM EDT [facility] Comment:Use non-HDL choleste rol or Apolipoprotein B to monitor cardiovascular risk and cholesterol-lowering therapy. HDL Cholesterol 73(H) 40 - 65 mg/dL [address] 11/23/2023 4:44 PM EDT [facility] LDL Cholesterol 159(H) <130 mg/dL [address] 11/23/2023 4:44 PM EDT [facility] Non-HDL Cholesterol 201(H) <190 mg/dL [address] 11/23/2023 4:44 PM EDT [facility] Comment: Normal primary prevention <190 mg/dL High risk primary prevention <160 mg/dL Secondary prevention <130 mg/dL High risk secondary prevention <100 mg/dL VLDL Cholesterol 42 8 - 71 mg/dL [address] 11/23/2023 4:44 PM EDT [facility] Ratio Chol/HDL 3.8 2.0 - 5.[address] 11/23/2023 4:44 PM EDT [facility] Patient Fasting No 4:44 PM EDT [facility] Blood Venipuncture / Unknown 11/23/2023 2:57 PM EDT 11/23/2023 3:29 PM EDT us Oseas Cross MD LAB BLOOD ORDERABLES Final Resul t Performing Organization Address City/State/[facility] Co de Phone Number [address] [address] from Last 3 Months or Most Recently Relevant to Health Maintenance Insurance MEDICARE MEDEX MEDICARE MEDEX Care Teams Behavioral Health Professional Relationship Specialty Start Date End [place] [address] PCP - General 11/23/23 Oseas Cross MD [address] [place] [address] [place] [address] [employer] Cardiology 05/23/24
--- OUTSIDE RECORDS SUMMARY | 2025-02-05 21:48 | XMS_ITS | Encounter Summary ---
Author Organization [facility] Address [address] [place] [phone] Phone Care Team Providers Care Surface Hydrologist Name Role Phone Jeremiah Kennedy MD Primary Care Provider + Self-Referred, Patient Unavailable Unavailab Stuart Luz MD Unavailable [phone] Franics Salazar MD Unavailable [phone] Encounter Details Date Type Department Care Team (Late st Contact Info) Description 10/16/2020 Prep for Surgery [facility] [address] [facility] [address] [place] [address] [email or web address] Social History Tobacco Use Types Packs/Day Years [...] [facility], [place] [address] [place] [address] 02/19/2025 10:15 AM EST Appointment [facility] CT [facility], [place] [address] [place] [address] Stuart Smith MD [address] [place] [phone] [email or web address] 02/19/2025 11:15 AM EST Office Visit [facility] [address] [place] [phone] Stuart Smith MD [address] [place] [phone] [email or web address] documented as of this encounter Visit Diagnoses Not on filedocumented in this encounter Additional Health Concerns Infection Onset Date Last Indicated Resolved Time CoV-Exposed Comment:Patient meets exposure criteria to a COVID+ HCW on 02/14/2021 02/14/2021 02/21/2021 1:24 AM EST CoV-Risk Comment:Per Ambulatory Triage Form 02/22/2021 02/23/202103/05 1:24 AM EST documented as of this encounter Care Teams Surface Hydrologist Relationship Specialty Start Date End Date Jeremiah Kennedy MD [address] [place] [address] PCP - General Family Medicine 08/29/20 Self-Referred, Patient 08/29/20 Stuart Smith MD [address] [place] [phone] [email or web address] [email or web address] Surgery 09/06/20 Francis Salazar MD [address] [place] [id number] Internal Medicine 10/16/20 documented as of this encounter Additional Source Comments The information contained in this document represents components of the legal health record. It is not the complete legal health record.[facility]
--- NOTE | 2025-02-05 22:43 | PC.NURSE ---
This RN spoke with Alma from radiology regarding the CT not taken. Radiology states previous RN told them the pt needed to be medicated prior to CT Pt arrived after previous RN left. Per Alma @ radiology pt will be next to CT Charge notified and aware Plan of care ongoing.
[2025-02-05 23:28] VITALS: BP 111/76; PULSE 86; RESP 16; TEMP 36.8; O2SAT 90
[2025-02-06 07:17] VITALS: BP 131/66; PULSE 90; RESP 13; TEMP 36.7; O2SAT 95
[2025-02-06 08:32] LABS: Appearance Urine Clear; Glucose Urine UA Negative (Negative); PH 5.5 (5.0-9.0); Specific Gravity - Urine 1.015 (1.005-1.025); UMIC TRIGGER UACC YES
[2025-02-06 08:33] LABS: UACC Culture Trigger YES
--- NOTE | 2025-02-06 13:50 | MHC.CM.ED ---
Received consult for assessment of d/c needs: Met with pt who states she resides with her brother who is able to assist if needed. She does not have services or use DME at this time. Discussed options for a return to home: pt very non committal and states she has to think about it PT michael recommends STR: pt does not have a qualifying Medicare stay and was referred to acute rehab. [facility] is following and requesting labs. notified. ED CM to follow for possible transfer to [facility] if they offer.
[2025-02-06 17:40] LABS: MANUAL DIFF FLAG NO
[2025-02-06 17:42] LABS: Hematocrit 39.8 % (37.0-47.0); Hemoglobin 13.1 g/dl (12.0-16.0); Imm Gran Abs Auto 0.04 X10*3/uL (0.00-0.03); Imm Gran Pct Auto 0.4 % (0.0-0.4); Lymphocytes Absolute Auto 1.2 X10*3/uL (1.2-4.9); Mean Corpuscular HGB Conc 32.9 g/dl (31.0-35.0); Mean Corpuscular Hemoglobin 30.6 pg (27.0-33.0); Mean Corpuscular Volume 93.0 fL (80.0-98.0); NRBC Abs Auto 0.000 X10*3/uL (0.0-0.012); NRBC Pct Auto 0.0 /100WBC (0.0-0.2); Platelet Count 282 X10*3/uL (160-400); Red Blood Count 4.28 X10*6/uL (4.20-5.50); White Blood Count 11.1 X10*3/uL (4.8-10.8)
[2025-02-06 17:53] LABS: Anion Gap 9 (12-20); Blood Urea Nitrogen 16 mg/dL (9-16); Calcium 9.2 mg/dL (8.4-10.2); Carbon Dioxide 27 mmol/L (22-29); Chloride 106 mmol/L (96-108); Creatinine Clr Calc Pharmacy 76.7; Estimated Glomerular Filt Rate > 60; Potassium 4.2 mmol/L (3.3-5.1); Sodium 138 mmol/L (135-145)
[2025-02-06 18:00] VITALS: BP 145/66; PULSE 106; TEMP 36.4; O2SAT 88
--- NOTE | 2025-02-06 19:07 | PC.NURSE ---
O2 found to be 88% on RA, no increased WOB/SOB noted, respirations even and unlabored. Placed on 2L O2 NC with good effects- O2 sats increased to >92%. PA made aware.
--- NOTE | 2025-02-06 21:17 | PC.NURSE ---
patient brother visiting at bedside
--- NOTE | 2025-02-06 21:33 | PC.NURSE ---
pt daughter sent the list of patient meds. all entered at this time. will check with MD about continuing the azithromycin. pharm was made aware meds are in. pt dtr reports she is getting treatment for lung ca in [place] at . Has a ct margarita for 02/19 @10am.
[2025-02-06 23:20] VITALS: BP 148/80; PULSE 105; RESP 20; TEMP 37.1; O2SAT 98
--- NOTE | 2025-02-06 23:21 | MHC.EDTECH ---
pt brought over from [facility], pt found to be sob and o2 around 85% RA. RN and MD made aware. pt placed on o2 by rn. pt at 95% at 5 lpm, resp. called and bx tx administered
--- NOTE | 2025-02-06 23:23 | PC.NURSE ---
This nurse called to bedside as pt de sat while attempting to exit the bed to go to the bathroom. O2 sat noted at 85% and pt hyperventilating. Pt repositioned upright at the bedside and 6L O2 applied via NC. MD at bedside. O2 improved to 98% on 6L. RT at bedside for breathing treatment per MD. Monitoring is ongoing.
[2025-02-06] MEDS: Albuterol Sulfate 5 MG, Albuterol/Iprat 2.5/0.5MG 3 ML 3 ML INHALE (23:25)
[2025-02-06 23:28] VITALS: PULSE 87; RESP 16; O2SAT 96
[2025-02-07 07:50] VITALS: BP 139/68; PULSE 90; RESP 20; TEMP 36.9; O2SAT 96
--- NOTE | 2025-02-07 08:34 | PHA.MEDREC ---
Addendum entered by Jessica De La Fuente, PharmD 02/07/25 10:36: [facility] REVIEWED. PROVIDER WOULD LIKE TO CONTINUE AZITHROMYCIN. CONFIRMED DIRECTIONS WITH [facility]. 1 TABLET EVERY Wednesday AND WEDNESDAY. Original Note: Pharmacy Consult ? Medication Reconciliation Pharmacy has completed the medication reconciliation. Spoke with pt and she confirmed her medications. Pt confirmed she hasn't started taking the Azithromycin tablets yet; pt was taking Benadryl prior to picking up Azithromycin and didn't want to mix those so she waited to start them.
[2025-02-07 09:05] VITALS: BP 121/76; PULSE 91; RESP 19; TEMP 36.8; O2SAT 98
--- NOTE | 2025-02-07 10:00 | PC.RT ---
Pt asking for Trelegy inhaler. RT called Pharmacy for med to be brought to ED for pt. RT offered pt nebulizer tx via bronchodilator protocol while pharmacy brings inhaler, pt refused, stated the nebulizers make her throat feel weird . Pt stable and in no distress at this time. Found on 2L, titrated back to RA, SATs 96%.
--- NOTE | 2025-02-07 10:27 | PC.NURSE ---
Pt sating >90% on RA, pt has COPD, no O2 at baseline. RT evaled pt and reported to keep pt on RA. No SOB at this time
--- NOTE | 2025-02-07 10:42 | PC.NURSE ---
Plan for [facility] at 1P today
--- NOTE | 2025-02-07 10:45 | MHC.CM.PN ---
[facility] HAS OFFERED PATIENT A BED FOR TODAY, [facility] IS BOOKED FOR 1PM TODAY. PATIENT IS AWARE AND IN AGREEMENT WITH THE DISCHARGE PLAN. [facility] REQUESTED A HCP, THIS CM ATTEMPTED TO COMPLETE ONE WITH PATIENT, HOWEVER SHE ADAMANTLY DECLINES TO COMPLETE ONE AT THIS TIME.
[2025-02-07 10:59] VITALS: BP 134/74; PULSE 101; RESP 19; O2SAT 96
[2025-02-07 12:25] VITALS: BP 134/74; PULSE 95; RESP 19; TEMP 36.6; O2SAT 96
[2025-02-07 13:00] VITALS: BP 142/66; PULSE 98; RESP 18; TEMP 36.8; O2SAT 92
== END 2025-02-07 13:17 ==
PROVIDERS: Emergency Medicine; Emergency Provider Emergency Medicine
DX: S09.90XA Unspecified injury of head, initial encounter (principal); M48.56XA Collapsed vertebra, not elsewhere classified, lumbar region, initial encounter for fracture; R51.9 Headache, unspecified; M54.2 Cervicalgia; R26.81 Unsteadiness on feet; M25.511 Pain in right shoulder; W10.9XXA Fall (on) (from) unspecified stairs and steps, initial encounter; R10.23 Pelvic and perineal pain bilateral; Z91.81 History of falling; Y93.01 Activity, walking, marching and hiking; Y92.9 Unspecified place or not applicable; Y99.8 Other external cause status; Z79.899 Other long term (current) drug therapy
CPT/HCPCS: 36415; 70450; 72125; 73030; 74176; 80048; 81001; 81003; 85025; 87086; 94640; 97162; 99285

== ENCOUNTER → 2025-02-05 19:29 | Outpatient (BNV) | payer MEDICARE, SELFPAY | PROVIDERS: Emergency Provider Emergency Medicine; Visit Provider Student in an Organized Health Care Education/Training Program | DX: Z04.3 Encounter for examination and observation following other accident (principal) | CPT/HCPCS: 70450; 72125 ==